=== PATIENT | female | born 1940 | race American Indian/Alaskan Native ===

== ENCOUNTER 2017-08-21 02:52 | Inpatient (IN) | payer MEDICAID, MEDICARE ==
[2017-08-21] MEDS ORDERED: NACL 0.9% 500 ML 500 ML IV ONE (03:13)
[2017-08-21] MEDS ORDERED: NACL 0.9% 1000 ML 1,000 ML ONE (03:15)
[2017-08-21 03:33] LABS: Hematocrit 25.4 % (30.3-42.9); Hemoglobin 8.4 gm/dl (10.1-14.3); Mean Corpuscular HGB Conc 33 % (30-34); Mean Corpuscular Volume 77 fl (79-97); Platelet Count 692 K/mm3 (140-440); Red Blood Count 3.29 M/mm3 (3.65-5.03); Red Cell Distribution Width 14.1 % (13.2-15.2)
[2017-08-21] MEDS ORDERED: TYLENOL PO ONE (03:33)
[2017-08-21] MEDS ORDERED: ZOFRAN IV ONE (03:35)
[2017-08-21] MEDS ORDERED: NACL 0.9% 1000 ML IV ONE ×2 (03:36→03:37)
[2017-08-21] MEDS ORDERED: ZOSYN/NS 4.5GM/100ML 4.5 GM/100 ML VIAL IV ONE (03:39)
[2017-08-21] MEDS ORDERED: TYLENOL PR ONE (03:40)
--- NOTE | 2017-08-21 03:40 | XRay Report ---
FINAL REPORT EXAM: XR CHEST 1V AP HISTORY: possible Sepsis COMPARISON: None available. FINDINGS: Frontal view(s) of the chest obtained. Mild to moderate cardiac enlargement. No pneumothorax. Faint patchy opacity left lung base which could reflect atelectasis or small focus developing pneumonia. Right lung is grossly clear. IMPRESSION: Patchy opacity left lung base which could reflect small focus of atelectasis or developing pneumonia. Mild to moderate cardiac enlargement.
[2017-08-21] MEDS ORDERED: LEVAQUIN 500MG/100ML 500 MG/100 ML BAG IV ONE ×2 (03:42→09:09)
[2017-08-21 03:47] LABS: Alanine Aminotransferase 5 units/L (7-56); Albumin 2.3 g/dL (3.9-5); BUN/Creatinine Ratio 40; Blood Urea Nitrogen 12 mg/dL (7-17); Calcium 7.4 mg/dL (8.4-10.2); Hemolysis Index 0
--- NOTE | 2017-08-21 03:47 | Emergency Department Report ---
HPI - General Chief Complaint: Altered Mental Status Time Seen by Provider: 08/21/17 03:41 - HPI HPI: The patient is a 77-year-old female with a history of CVA, dementia, thyroid disease, and who presents for evaluation of altered mental status and dyspnea. Per long-term staff, the patient has exhibited change in behavior for the past one day. The patient admits to mild constant dyspnea for the past day, exacerbated with coughing. The patient denies trauma to the head, headache, chest pain, hemoptysis, back pain, abdominal pain, vomiting. ED Past Medical Hx - Past Medical History Previous Medical History?: Yes Hx Hypertension: Yes Hx Psychiatric Treatment: Yes (schizophrenia) Hx Dementia: Yes Additional medical history: chronic ulcer left heel, midfoot,sacral wound - Social History Smoking Status: Former Smoker Substance Use Type: None ED Review of Systems ROS: Stated complaint: WOUNDS Other details as noted in HPI Constitutional: denies: fever ENT: denies: throat or neck pain Respiratory: reports cough, shortness of breath Cardiovascular: denies: chest pain Endocrine: denies unexplained weight loss or gain Gastrointestinal: denies: abdominal pain, nausea Genitourinary: denies: dysuria Musculoskeletal: denies: leg swelling Skin: denies: rash Neurological: AMS (per living facility staff) denies: headache Hematological/Lymphatic: denies: easy bleeding or easy bruising Psych: denies sadness or hopelessness Physical Exam - Physical Exam Vital Signs: Vital Signs 08/21/17 02:56 Temperature 102.1 F H Pulse Rate 142 H Respiratory 24 Rate Blood Pressure 91/55 [Left] O2 Sat by Pulse 91 Oximetry Physical Exam: General: well-nourished, well-developed, no acute distress Head: Normocephalic, atraumatic Eyes: normal sclera ENT: Mucous membranes are pale and dry Neck: No neck stiffness, no cervical adenopathy Respiratory: Mildly diminished left basilar breath sound and rhonchi present Cardio: S1 and S2 present, no murmurs, rubs, gallops, capillary refill is delayed Abdomen: Normoactive bowel sounds, soft abdomen, no rigidity, no guarding or rebound tenderness Chest WALL/Back: No tenderness to palpation of the chest wall, no CVA tenderness with percussion Musc: No pitting edema Skin: No rash Neuro: no facial drooping, normal speech Psych: Normal affect ED Course Vital Signs 08/21/17 02:56 Temperature 102.1 F H Pulse Rate 142 H Respiratory 24 Rate Blood Pressure 91/55 [Left] O2 Sat by Pulse 91 Oximetry ED Medical Decision Making - Lab Data Result diagrams: 08/21/17 03:17 08/21/17 03:17 - Medical Decision Making The patient was seen and examined by myself. The patient is placed on a gardening manager and continuous pulse ox. On initial evaluation, the patient was found to be in no distress, although with severely elevated heart rate, elevated temperature, and low blood pressure. The patient is given 30 cc/kg normal saline fluid bolus for treatment of her dehydration and suspected sepsis , she is given Tylenol for fever, antibiotics order for treatment of her sepsis as well. Evaluation orders were placed. Multiple bedside reassessments performed to assess the patient's responsiveness to fluids resuscitation. X-ray of the chest reveals a left lower lobe infiltrate concerning for pneumonia. Lab results revealed leukocytosis, WBC 16. Dr. Arreaga, the physician on-call for the hospitalist service was contacted. He agreed to admit the patient for further treatment and close monitoring. The ED admit order was placed. The patient was admitted in guarded condition. Critical Care Time: Yes Critical care time in (mins) excluding proc time.: 35 Critical care attestation.: Due to the critical nature of this patients presentation, which necessitated multiple bedside assessments, manipulation and supportive measures to prevent further life threatening deterioration, I would like to bill for a total of 35 minutes of critical care time. This was exclusive of any separately billable procedures. Critical Care Time: 35 minutes ED Disposition Clinical Impression: Dehydration, Generalized weakness Sepsis Qualifiers: Sepsis type: sepsis due to unspecified organism Qualified Code(s): A41.9 - Sepsis, unspecified organism Pneumonia, community acquired Qualifiers: Laterality: left Lung location: lower lobe of lung Qualified Code(s): J18.1 - Lobar pneumonia, unspecified organism Disposition: OP ADMIT IP TO THIS HOSP Is pt being admited?: Yes Does the pt Need Aspirin: Yes Condition: Critical Instructions: Bacterial Pneumonia (ED) Referrals: PRIMARY CARE, [Primary Care Provider] - 3-5 Days Time of Disposition: 03:45
[2017-08-21] MEDS ORDERED: BABY ASPIRIN PO ONE (03:50)
[2017-08-21 03:53] LABS: INR 1.38 (0.87-1.13)
[2017-08-21 03:53] LABS: Mean Corpuscular Hemoglobin 26 pg (28-32)
[2017-08-21] MEDS ORDERED: VANCOMYCIN PHARMACY TO DOSE IV SCH (04:00)
[2017-08-21] MEDS ORDERED: VANCOMYCIN/NS 1 GM/250 ML 1 GM/250 ML BAG IV SCH (04:00)
[2017-08-21 04:27] LABS: Band Neutrophils # (Manual) 0.2 K/mm3; Basophils % (Manual) 0 % (0.0-1.8); Eosinophils % (Manual) 0 % (0.0-4.3); Total Cells Counted 100
[2017-08-21 04:28] LABS: Giant Platelets Rare; Hypochromasia 1+; Platelet Estimate Appears Increased
[2017-08-21 07:25] LABS: Bacteria,Urine 4+ /HPF (Negative); Bilirubin,Urine NEG (Negative); Blood,Urine NEG (Negative); Color,Urine Amber (Yellow); Mucus,Urine 3+ /HPF
[2017-08-21] MEDS ORDERED: ZOFRAN IV PRN (09:53)
[2017-08-21] MEDS ORDERED: SODIUM CHLORIDE FLUSH SYRINGE 10 ML IV PRN (09:53)
--- NOTE | 2017-08-21 09:53 | History and Physical Report ---
History of Present Illness Date of examination: 08/21/17 Date of admission: 08/21/17 Chief complaint: CC AMS 2 days History of present illness: PO[place]: The patient is a 77-year-old female with a history of CVA, dementia, thyroid disease, and who presents for evaluation of altered mental status and dyspnea. Per group home staff, the patient has exhibited change in behavior for the past one day. The patient admits to mild constant dyspnea for the past day, exacerbated with coughing. The patient denies trauma to the head, headache, chest pain, hemoptysis, back pain, abdominal pain, vomiting. Past Medical History Previous Medical History?: Yes Hx Hypertension: Yes Hx Psychiatric Treatment: Yes (schizophrenia) Hx Dementia: Yes Additional medical history: chronic ulcer left heel, midfoot,sacral wound Social History Smoking Status: Former Smoker Substance Use Type: None Surgery History N/A Family History Htn Review of Systems ROS: Stated complaint: WOUNDS Other details as noted in HPI Constitutional: denies: fever ENT: denies: throat or neck pain Respiratory: reports cough, shortness of breath Cardiovascular: denies: chest pain Endocrine: denies unexplained weight loss or gain Gastrointestinal: denies: abdominal pain, nausea Genitourinary: denies: dysuria Musculoskeletal: denies: leg swelling Skin: denies: rash Decub ulcer Sacrum and Left heel Neurological: AMS (per living facility staff) denies: headache Hematological/Lymphatic: denies: easy bleeding or easy bruising Psych: denies sadness or hopelessness Medications and Allergies Allergies Allergy/AdvReac Type Severity Reaction Status Date / Time No Known Allergies Allergy Verified 08/21/17 03:19 Home Medications Medication Instructions Recorded Confirmed Last Taken Type Collagenase [Santyl] 1 applicatio TP QDAY 08/21/17 08/21/17 Unknown History Donepezil [Aricept] 5 mg PO QDAY 08/21/17 08/21/17 Unknown History Lisinopril [Zestril] 5 mg PO QDAY 08/21/17 08/21/17 Unknown History Valproic Acid [DepaKENE] 750 mg PO QHS 08/21/17 08/21/17 Unknown History metroNIDAZOLE [Flagyl] 500 mg TP DAILY 08/21/17 08/21/17 Unknown History risperiDONE [Risperdal] 4 mg PO DAILY 08/21/17 08/21/17 Unknown History traZODone [Desyrel] 50 mg PO QHS 08/21/17 08/21/17 Unknown History Active Meds: Active Medications Vancomycin HCl (Vancomycin Pharmacy To Dose) 1 each IV PKCONSULT RACHEL Exam - Constitutional Vitals: Temp Pulse Resp BP Pulse Ox 102.1 F H 110 H 16 112/52 98 08/21/17 02:56 08/21/17 08:45 08/21/17 08:45 08/21/17 08:45 08/21/17 08:45 General appearance: Present: no acute distress, well-nourished - EENT Eyes: Present: PERRL ENT: hearing intact, clear oral mucosa - Neck Neck: Present: supple, normal ROM - Respiratory Respiratory effort: normal Respiratory: bilateral: CTA - Cardiovascular Heart rate: 70 Rhythm: regular Heart Sounds: Present: S1 & S2. Absent: rub, click - Extremities Extremities: no ischemia, pulses intact, pulses symmetrical, No edema, abnormal (L HEEL Ulcer) Extremity abnormal: other (Sacral Decubitus ulcerStg 4 10 cmx 5xcm x 0.5cm depth ) Peripheral Pulses: within normal limits - Abdominal General gastrointestinal: Present: soft, non-tender, non-distended, normal bowel sounds Female genitourinary: Present: normal - Integumentary Integumentary: Present: clear, warm, dry - Musculoskeletal Musculoskeletal: gait normal, strength equal bilaterally - Psychiatric Psychiatric: appropriate mood/affect, intact judgment & insight - Neurologic Neurologic: CNII-XII intact, moves all extremities - Allied Health Allied health notes reviewed: nursing, case management Results - Labs CBC & Chem 7: 08/22/17 10:04 08/22/17 10:04 Labs: Laboratory Last Values WBC 16.2 K/mm3 (4.5-11.0) H 08/21/17 03:17 RBC 3.29 M/mm3 (3.65-5.03) L 08/21/17 03:17 Hgb 8.4 gm/dl (10.1-14.3) L 08/21/17 03:17 Hct 25.4 % (30.3-42.9) L 08/21/17 03:17 MCV 77 fl (79-97) L 08/21/17 03:17 MCH 26 pg (28-32) L 08/21/17 03:17 MCHC 33 % (30-34) 08/21/17 03:17 RDW 14.1 % (13.2-15.2) 08/21/17 03:17 Plt Count 692 K/mm3 (140-440) H 08/21/17 03:17 Add Manual Diff Complete 08/21/17 03:17 Total Counted 100 08/21/17 03:17 Seg Neutrophils % Stamp Press Operator 08/21/17 03:17 Seg Neuts % (Manual) 96.0 % (40.0-70.0) H 08/21/17 03:17 Band Neutrophils % 1.0 % 08/21/17 03:17 Lymphocytes % (Manual) 2.0 % (13.4-35.0) L 08/21/17 03:17 Reactive Lymphs % (Man) 0 % 08/21/17 03:17 Monocytes % (Manual) 1.0 % (0.0-7.3) 08/21/17 03:17 Eosinophils % (Manual) 0 % (0.0-4.3) 08/21/17 03:17 Basophils % (Manual) 0 % (0.0-1.8) 08/21/17 03:17 Metamyelocytes % 0 % 08/21/17 03:17 Myelocytes % 0 % 08/21/17 03:17 Promyelocytes % 0 % 08/21/17 03:17 Blast Cells % 0 % 08/21/17 03:17 Nucleated RBC % Not Reportable 08/21/17 03:17 Seg Neutrophils # Man 15.6 K/mm3 (1.8-7.7) H 08/21/17 03:17 Band Neutrophils # 0.2 K/mm3 08/21/17 03:17 Lymphocytes # (Manual) 0.3 K/mm3 (1.2-5.4) L 08/21/17 03:17 Abs React Lymphs (Man) 0.0 K/mm3 08/21/17 03:17 Monocytes # (Manual) 0.2 K/mm3 (0.0-0.8) 08/21/17 03:17 Eosinophils # (Manual) 0.0 K/mm3 (0.0-0.4) 08/21/17 03:17 Basophils # (Manual) 0.0 K/mm3 (0.0-0.1) 08/21/17 03:17 Metamyelocytes # 0.0 K/mm3 08/21/17 03:17 Myelocytes # 0.0 K/mm3 08/21/17 03:17 Promyelocytes # 0.0 K/mm3 08/21/17 03:17 Blast Cells # 0.0 K/mm3 08/21/17 03:17 WBC Morphology Not Reportable 08/21/17 03:17 Hypersegmented Neuts Not Reportable 08/21/17 03:17 Hyposegmented Neuts Not Reportable 08/21/17 03:17 Hypogranular Neuts Not Reportable 08/21/17 03:17 Smudge Cells Not Reportable 08/21/17 03:17 Toxic Granulation Not Reportable 08/21/17 03:17 Toxic Vacuolation Not Reportable 08/21/17 03:17 Dohle Bodies Not Reportable 08/21/17 03:17 Pelger-Huet Anomaly Not Reportable 08/21/17 03:17 Abdulkadir Rods Not Reportable 08/21/17 03:17 Platelet Estimate Appears increased 08/21/17 03:17 Clumped Platelets Not Reportable 08/21/17 03:17 Plt Clumps, EDTA Not Reportable 08/21/17 03:17 Large Platelets Not Reportable 08/21/17 03:17 Giant Platelets Rare 08/21/17 03:17 Platelet Satelliting Not Reportable 08/21/17 03:17 Plt Morphology Comment Not Reportable 08/21/17 03:17 RBC Morphology Not Reportable 08/21/17 03:17 Dimorphic RBCs Not Reportable 08/21/17 03:17 Polychromasia Not Reportable 08/21/17 03:17 Hypochromasia 1+ 08/21/17 03:17 Poikilocytosis Not Reportable 08/21/17 03:17 Anisocytosis Not Reportable 08/21/17 03:17 Microcytosis Not Reportable 08/21/17 03:17 Macrocytosis Not Reportable 08/21/17 03:17 Spherocytes Not Reportable 08/21/17 03:17 Pappenheimer Bodies Not Reportable 08/21/17 03:17 Sickle Cells Not Reportable 08/21/17 03:17 Target Cells Not Reportable 08/21/17 03:17 Tear Drop Cells Not Reportable 08/21/17 03:17 Ovalocytes Not Reportable 08/21/17 03:17 Helmet Cells Not Reportable 08/21/17 03:17 Ordonez-[place] Bodies Not Reportable 08/21/17 03:17 [place] Rings Not Reportable 08/21/17 03:17 Sumner Cells Not Reportable 08/21/17 03:17 Bite Cells Not Reportable 08/21/17 03:17 Crenated Cell Not Reportable 08/21/17 03:17 Elliptocytes Not Reportable 08/21/17 03:17 Acanthocytes (Spur) Not Reportable 08/21/17 03:17 Rouleaux Not Reportable 08/21/17 03:17 Hemoglobin C Crystals Not Reportable 08/21/17 03:17 Schistocytes Not Reportable 08/21/17 03:17 Malaria parasites Not Reportable 08/21/17 03:17 Dewayne Bodies Not Reportable 08/21/17 03:17 Hem Pathologist Commnt No 08/21/17 03:17 PT 17.8 Sec. (12.2-14.9) H 08/21/17 03:32 INR 1.38 (0.87-1.13) H 08/21/17 03:32 VBG pH 7.480 (7.320-7.420) H 08/21/17 03:17 Sodium 137 mmol/L (137-145) 08/21/17 03:17 Potassium 3.5 mmol/L (3.6-5.0) L 08/21/17 03:17 Chloride 95.0 mmol/L (98-107) L 08/21/17 03:17 Carbon Dioxide 27 mmol/L (22-30) 08/21/17 03:17 Anion Gap 19 mmol/L 08/21/17 03:17 BUN 12 mg/dL (7-17) 08/21/17 03:17 Creatinine 0.3 mg/dL (0.7-1.2) L 08/21/17 03:17 Estimated GFR > 60 ml/min 08/21/17 03:17 BUN/Creatinine Ratio 40 % 08/21/17 03:17 Lactic Acid 1.30 mmol/L (0.7-2.0) 08/21/17 06:49 Calcium 7.4 mg/dL (8.4-10.2) L 08/21/17 03:17 Total Bilirubin 0.40 mg/dL (0.1-1.2) 08/21/17 03:17 AST 9 units/L (5-40) 08/21/17 03:17 ALT 5 units/L (7-56) L 08/21/17 03:17 Alkaline Phosphatase 90 units/L (35-129) 08/21/17 03:17 NT-Pro-B Natriuret Pep 165.7 pg/mL (0-900) 08/21/17 03:17 Total Protein 5.2 g/dL (6.3-8.2) L 08/21/17 03:17 Albumin 2.3 g/dL (3.9-5) L 08/21/17 03:17 Albumin/Globulin Ratio 0.8 % 08/21/17 03:17 Urine Color Beth (Yellow) 08/21/17 06:54 Urine Turbidity Clear (Clear) 08/21/17 06:54 Urine pH 5.0 (5.0-7.0) 08/21/17 06:54 Ur Specific Ransom 1.021 (1.003-1.030) 08/21/17 06:54 Urine Protein 100 mg/dl mg/dL (Negative) 08/21/17 06:54 Urine Glucose (UA) Neg mg/dL (Negative) 08/21/17 06:54 Urine Ketones Neg mg/dL (Negative) 08/21/17 06:54 Urine Blood Neg (Negative) 08/21/17 06:54 Urine Nitrite Neg (Negative) 08/21/17 06:54 Urine Bilirubin Neg (Negative) 08/21/17 06:54 Urine Urobilinogen 4.0 mg/dL (<2.0) 08/21/17 06:54 Ur Leukocyte Esterase Neg (Negative) 08/21/17 06:54 Urine WBC (Auto) 9.0 /HPF (0.0-6.0) H 08/21/17 06:54 Urine RBC (Auto) 4.0 /HPF (0.0-6.0) 08/21/17 06:54 U Epithel Cells (Auto) 11.0 /HPF (0-13.0) 08/21/17 06:54 Urine Bacteria (Auto) 4+ /HPF (Negative) 08/21/17 06:54 Urine WBC Clumps 2+ /HPF 08/21/17 06:54 Urine Mucus 3+ /HPF 08/21/17 06:54 Short CBC 08/22/17 Range/Units 10:04 WBC 18.4 H (4.5-11.0) K/mm3 Hgb 7.4 L (10.1-14.3) gm/dl Hct 24.1 L (30.3-42.9) % Plt Count 638 H (140-440) K/mm3 [facility] 08/22/17 10:04 Sodium 139 Potassium 3.1 L Chloride 102.6 Carbon Dioxide 25 BUN 7 Creatinine 0.3 L Glucose 99 Calcium 7.4 L - Imaging and Cardiology Imaging and Cardiology: Rt Shoulder X ray Rotator cuff pathology Possible impingement syndrome Assessment and Plan Advance Directives: Yes (Full code) VTE prophylaxis?: Chemical Plan of care discussed with patient/family: Yes - Patient Problems (1) Sepsis Current Visit: Yes Status: Acute Qualifiers: Sepsis type: sepsis due to unspecified organism Qualified Code(s): A41.9 - Sepsis, unspecified organism Plan to address problem: Patient septic with high white count and Altered sensorium Sec to Sacral decubitus and UTI IV Zosyn initiated IV vanco initiated Surgery consult requested for debridement (2) Encephalopathy acute Current Visit: Yes Status: Acute Plan to address problem: Sec to sepsis IV abx and IV fluids (3) UTI (urinary tract infection) Current Visit: Yes Status: Acute Qualifiers: Urinary tract infection type: acute cystitis (4) Severe protein-calorie malnutrition Current Visit: Yes Status: Acute Plan to address problem: Dietitian consult (5) Unstageable pressure ulcer of sacral region Current Visit: Yes Status: Acute Plan to address problem: Wound care Debridement and IV Abx (6) Dehydration Current Visit: Yes Status: Acute Plan to address problem: IV Fluids initiated (7) HTN (hypertension) Current Visit: Yes Status: Chronic Qualifiers: Hypertension type: essential hypertension Qualified Code(s): I10 - Essential (primary) hypertension Plan to address problem: Cont antihypertensives (8) DVT prophylaxis Current Visit: Yes Status: Acute Plan to address problem: on Heparin
[2017-08-21] MEDS ORDERED: SODIUM BICARBONATE FEEDTUBE PRN ×3 (09:57→14:05)
[2017-08-21] MEDS ORDERED: SIMPLE SYRUP FEEDTUBE PRN ×6 (09:57→14:05)
[2017-08-21] MEDS ORDERED: PANCREAZE DR 10,500 UNIT FEEDTUBE PRN ×3 (09:57→14:05)
--- NOTE | 2017-08-21 15:31 | Consultation ---
History of Present Illness Consult date: 08/21/17 Reason for consult: other (Sacral and bilateral heel pressure ulcers) - History of present illness History of present illness: 77 yo female half-way resident with bilateral heel and sacral pressure ulcers. She is not eating per her sister. Past History Past Medical History: hypertension (Dementia) Medications and Allergies Allergies Allergy/AdvReac Type Severity Reaction Status Date / Time No Known Allergies Allergy Verified 08/21/17 03:19 Home Medications Medication Instructions Recorded Confirmed Last Taken Type Collagenase [Santyl] 1 applicatio TP QDAY 08/21/17 08/21/17 Unknown History Donepezil [Aricept] 5 mg PO QDAY 08/21/17 08/21/17 Unknown History Lisinopril [Zestril] 5 mg PO QDAY 08/21/17 08/21/17 Unknown History Valproic Acid [DepaKENE] 750 mg PO QHS 08/21/17 08/21/17 Unknown History metroNIDAZOLE [Flagyl] 500 mg TP DAILY 08/21/17 08/21/17 Unknown History risperiDONE [Risperdal] 4 mg PO DAILY 08/21/17 08/21/17 Unknown History traZODone [Desyrel] 50 mg PO QHS 08/21/17 08/21/17 Unknown History Active Meds: Active Medications Acetaminophen (Tylenol) 650 mg PO Q4H PRN PRN Reason: Pain MILD(1-3)/Fever >100.5/ALMEIDA Lipase/Protease/Amylase (Pancreaze Dr 10,500 Unit) 1 each FEEDTUBE PRN PRN PRN Reason: For Clogged Feeding Tube Heparin Sodium (Porcine) (Heparin) 5,000 unit SUB-Q Q12HR RACHEL Sodium Chloride (Nacl 0.9% 1000 Ml) 1,000 mls @ 100 mls/hr IV DIRECT RACHEL Piperacillin Sod/Tazobactam Sod (Zosyn/Ns 4.5gm/100ml) 4.5 gm in 100 mls @ 200 mls/hr IV Q8HR RACHEL; Protocol Morphine Sulfate (Morphine) 2 mg IV Q4H PRN PRN Reason: Pain, Moderate (4-6) Ondansetron HCl (Zofran) 4 mg IV Q8H PRN PRN Reason: Nausea And Vomiting Simple Syrup (Simple Syrup) 15 ml FEEDTUBE PRN PRN PRN Reason: Hypoglycemia Simple Syrup (Simple Syrup) 30 ml FEEDTUBE PRN PRN PRN Reason: Hypoglycemia Sodium Bicarbonate (Sodium Bicarbonate) 325 mg FEEDTUBE PRN PRN PRN Reason: For Clogged Feeding Tube Sodium Chloride (Sodium Chloride Flush Syringe 10 Ml) 10 ml IV BID RACHEL Sodium Chloride (Sodium Chloride Flush Syringe 10 Ml) 10 ml IV PRN PRN PRN Reason: LINE FLUSH Sodium Hypochlorite (Dakin's Full Strength) 1 applic TP Q12H RACHEL Review of Systems All systems: negative (none) Exam Vital Signs Temp Pulse Resp BP Pulse Ox 102.1 F H 142 H 24 91/55 91 08/21/17 02:56 08/21/17 02:56 08/21/17 02:56 08/21/17 02:56 08/21/17 02:56 - General physical appearance Positive: no pain (cachetic), chronically ill - Eyes Positive: PERRL, normal occular movement - ENT Positive: normal pinna, normal nares, normal mucosa, no hearing loss, no congestion - Neck Positive: other (Right neck mass present) - Respiratory Positive: normal expansion, normal respiratory effort, clear to auscultation - Cardiovascular Rhythm: regular Heart Sounds: Present: S1 & S2. Absent: rub, click - Extremities Extremity abnormal: ulceration (I cannot palpate the DP or PT pulses bilaterally. There is a 4.5 X 7 X 0.1 unstageable eschar of the right heel and a 13 X 11 X 0.1 unstageable eschar of the left heel. There is a 7 X 9 X 1.8 stage 3-4 decubitus ulceration of the sacrum with a 5 cm margin of undermining. ), pulses diminished Peripheral Pulses: abnormal - Breasts Breasts: deferred - Abdomen Abdomen: Present: soft, bowel sounds normal. Absent: tender, distended Hernia: none - Genitourinary Female Genitourinary: deferred - Integumentary other (See extremities.) - Neurologic Neurologic: other (Unresponsive) Results - Labs 08/21/17 03:17 08/21/17 03:17 Abnormal lab results 08/21/17 08/21/17 08/21/17 Range/Units 03:17 03:17 03:17 WBC 16.2 H (4.5-11.0) K/mm3 RBC 3.29 L (3.65-5.03) M/mm3 Hgb 8.4 L (10.1-14.3) gm/dl Hct 25.4 L (30.3-42.9) % MCV 77 L (79-97) fl MCH 26 L (28-32) pg Plt Count 692 H (140-440) K/mm3 Seg Neuts % (Manual) 96.0 H (40.0-70.0) % Lymphocytes % (Manual) 2.0 L (13.4-35.0) % Seg Neutrophils # Man 15.6 H (1.8-7.7) K/mm3 Lymphocytes # (Manual) 0.3 L (1.2-5.4) K/mm3 PT (12.2-14.9) Sec. INR (0.87-1.13) VBG pH 7.480 H (7.320-7.420) Potassium 3.5 L (3.6-5.0) mmol/L Chloride 95.0 L (98-107) mmol/L Creatinine 0.3 L (0.7-1.2) mg/dL Glucose 218 H (65-100) mg/dL Calcium 7.4 L (8.4-10.2) mg/dL ALT 5 L (7-56) units/L Total Protein 5.2 L (6.3-8.2) g/dL Albumin 2.3 L (3.9-5) g/dL Urine WBC (Auto) (0.0-6.0) /HPF 08/21/17 08/21/17 Range/Units 03:32 06:54 WBC (4.5-11.0) K/mm3 RBC (3.65-5.03) M/mm3 Hgb (10.1-14.3) gm/dl Hct (30.3-42.9) % MCV (79-97) fl MCH (28-32) pg Plt Count (140-440) K/mm3 Seg Neuts % (Manual) (40.0-70.0) % Lymphocytes % (Manual) (13.4-35.0) % Seg Neutrophils # Man (1.8-7.7) K/mm3 Lymphocytes # (Manual) (1.2-5.4) K/mm3 PT 17.8 H (12.2-14.9) Sec. INR 1.38 H (0.87-1.13) VBG pH (7.320-7.420) Potassium (3.6-5.0) mmol/L Chloride (98-107) mmol/L Creatinine (0.7-1.2) mg/dL Glucose (65-100) mg/dL Calcium (8.4-10.2) mg/dL ALT (7-56) units/L Total Protein (6.3-8.2) g/dL Albumin (3.9-5) g/dL Urine WBC (Auto) 9.0 H (0.0-6.0) /HPF Diabetes panel 08/21/17 08/21/17 Range/Units 03:17 03:17 Sodium 137 (137-145) mmol/L Potassium 3.5 L (3.6-5.0) mmol/L Chloride 95.0 L (98-107) mmol/L Carbon Dioxide 27 (22-30) mmol/L BUN 12 (7-17) mg/dL Creatinine 0.3 L (0.7-1.2) mg/dL Glucose 218 H (65-100) mg/dL Hemoglobin A1c 5.8 (4-6) % Calcium 7.4 L (8.4-10.2) mg/dL AST 9 (5-40) units/L ALT 5 L (7-56) units/L Alkaline Phosphatase 90 (35-129) units/L Total Protein 5.2 L (6.3-8.2) g/dL Albumin 2.3 L (3.9-5) g/dL Calcium panel 08/21/17 08/21/17 Range/Units 03:17 03:17 Calcium 7.4 L (8.4-10.2) mg/dL Phosphorus 2.70 (2.5-4.5) mg/dL Albumin 2.3 L (3.9-5) g/dL Pituitary panel 08/21/17 Range/Units 03:17 Sodium 137 (137-145) mmol/L Potassium 3.5 L (3.6-5.0) mmol/L Chloride 95.0 L (98-107) mmol/L Carbon Dioxide 27 (22-30) mmol/L BUN 12 (7-17) mg/dL Creatinine 0.3 L (0.7-1.2) mg/dL Glucose 218 H (65-100) mg/dL Calcium 7.4 L (8.4-10.2) mg/dL Adrenal panel 08/21/17 Range/Units 03:17 Sodium 137 (137-145) mmol/L Potassium 3.5 L (3.6-5.0) mmol/L Chloride 95.0 L (98-107) mmol/L Carbon Dioxide 27 (22-30) mmol/L BUN 12 (7-17) mg/dL Creatinine 0.3 L (0.7-1.2) mg/dL Glucose 218 H (65-100) mg/dL Calcium 7.4 L (8.4-10.2) mg/dL Total Bilirubin 0.40 (0.1-1.2) mg/dL AST 9 (5-40) units/L ALT 5 L (7-56) units/L Alkaline Phosphatase 90 (35-129) units/L Total Protein 5.2 L (6.3-8.2) g/dL Albumin 2.3 L (3.9-5) g/dL Assessment and Plan - Patient Problems (1) Decubitus ulcer of heel, bilateral, unstageable Current Visit: Yes Status: Acute Plan to address problem: 1) I will discuss debridement with her daughter who is flying in from [place]. 2) Pressure avoidance 3) Local wound care 4) BLE arterial dopplers (2) Unstageable pressure ulcer of sacral region Current Visit: Yes Status: Acute Plan to address problem: 1) Pressure avoidance 2) I will discuss debridement with her daughter. (3) Severe protein-calorie malnutrition Current Visit: Yes Status: Acute Plan to address problem: 1) I will discuss PEG placement with her daughter. (4) UTI (urinary tract infection) Current Visit: Yes Status: Acute
[2017-08-21] MEDS: HEPARIN SUB-Q SCH ×2 (17:45→22:11)
[2017-08-21] MEDS: ZOSYN/NS 4.5GM/100ML 4.5 GM/100 ML VIAL IV SCH ×2 (17:46→22:09)
[2017-08-21] MEDS: SODIUM CHLORIDE FLUSH SYRINGE 10 ML IV SCH ×2 (17:54→22:11)
--- NOTE | 2017-08-21 21:05 | XRay Report ---
FINAL REPORT EXAM: XR SHOULDER 2+V RT HISTORY: Pt c/o pain to right shoulder/arm TECHNIQUE: Right shoulder three views PRIORS: None. FINDINGS: There is superior migration the humerus at the glenohumeral joint space. There is degenerative narrowing at the AC joint with inferior distal acromial osteophyte. No acute fractures are identified. No dislocation seen. Adjacent bony and soft tissue structures are unremarkable. IMPRESSION: Findings suggestive of underlying rotator cuff pathology. Inferior acromial osteophyte may contribute to clinical impingement syndrome.
[2017-08-21] MEDS: DAKIN'S FULL STRENGTH TP SCH (22:09)
[2017-08-21] MEDS: NACL 0.9% 1000 ML 1,000 ML IV SCH (22:13)
[2017-08-22] MEDS: MORPHINE IV PRN ×3 (00:22→22:04)
[2017-08-22] MEDS: ZOSYN/NS 4.5GM/100ML 4.5 GM/100 ML VIAL IV SCH ×3 (05:12→22:05)
[2017-08-22] MEDS ORDERED: MARCAINE 0.25% INFILTRATI ONE (06:46)
[2017-08-22] MEDS ORDERED: HYDROGEN PEROXIDE ONE (06:46)
[2017-08-22] MEDS ORDERED: DIPRIVAN 10 MG/ML IV ONE (07:28)
[2017-08-22] MEDS ORDERED: SUBLIMAZE ONE (07:32)
[2017-08-22] MEDS ORDERED: SUBLIMAZE IV PRN (07:38)
--- NOTE | 2017-08-22 07:38 | Anesthesia Day of Surgery ---
Anesthesia Day of Surgery - Day of Surgery Patient Examined: Yes Patient H&P Reviewed: Yes Patient is NPO: Yes
--- NOTE | 2017-08-22 07:38 | Anesthesia Consultation ---
Anesthesia Consult and Med Hx Date of service: 08/22/17 - Airway Anesthetic Teeth Evaluation: Poor ROM Head & Neck: Adequate Mental/Hyoid Distance: Adequate Mallampati Class: Class III Intubation Access Assessment: Probably Good - Pulmonary Exam CTA: Yes - Cardiac Exam Cardiac Exam: RRR - Pre-Operative Health Status ASA Pre-Surgery Classification: ASA4 Proposed Anesthetic Plan: General - Cardiovascular System Hx Hypertension: Yes - Central Nervous System CVA: Yes Hx Psychiatric Problems: Yes (schizophrenia, dementia) - Endocrine Hx Thyroid Disease: Yes - Hematic Hx Anemia: Yes - Additional Comments Anesthesia Medical History Comments: [facility] resident, bed bound
[2017-08-22] MEDS ORDERED: XYLOCAINE MPF 2% ONE (08:12)
[2017-08-22] MEDS ORDERED: NEO SYNEPHRINE/NS Syringe(OR USE) IV ONE (08:51)
[2017-08-22] MEDS ORDERED: ZOFRAN ONE (08:51)
--- NOTE | 2017-08-22 08:56 | Post Operative Note ---
Pre-op diagnosis: 1) Sacral pressure ulcer, unstageable 2) B heel pressure ulcers, unstageab Post-op diagnosis: same (All ulcers were stage 4) Procedure: 1) Debridement of sacral pressure ulcer including bone; final wound measurements - 9 X 6 X 2 cm 2) Debridement of bilateral heel pressure ulcers including muscle/fascia - final wound measurements - left heel - 12 X 7 X 2 cm right heel - 6 X 6 X 2 cm Anesthesia: CHERYL Surgeon: STEWART FERRARO Estimated blood loss: minimal Pathology: list (Sacral wound cultures) Specimen disposition: to lab Condition: stable Disposition: PACU
[2017-08-22] MEDS ORDERED: NACL 0.9% IR ONE (09:05)
[2017-08-22 10:20] LABS: Hematocrit 24.1 % (30.3-42.9); Hemoglobin 7.4 gm/dl (10.1-14.3); Mean Corpuscular HGB Conc 31 % (30-34); Mean Corpuscular Volume 80 fl (79-97); Platelet Count 638 K/mm3 (140-440); Red Cell Distribution Width 14.3 % (13.2-15.2)
[2017-08-22 10:24] LABS: Mean Corpuscular Hemoglobin 25 pg (28-32)
[2017-08-22 10:27] LABS: BUN/Creatinine Ratio 23; Blood Urea Nitrogen 7 mg/dL (7-17); Calcium 7.4 mg/dL (8.4-10.2); Hemolysis Index 2
[2017-08-22 11:03] LABS: Anisocytosis 1+; Band Neutrophils # (Manual) 0.2 K/mm3; Basophils % (Manual) 0 % (0.0-1.8); Eosinophils % (Manual) 0 % (0.0-4.3); Hypochromasia 1+; Monocytes % (Manual) 0 % (0.0-7.3); Total Cells Counted 100
[2017-08-22 11:04] LABS: Helmet Cells Rare; Large Platelets Few; Ovalocytes 1+; Platelet Estimate Appears Increased; Target Cells 1+; Tear Drop Cells Rare
--- NOTE | 2017-08-22 12:54 | Procedure Note ---
Date of procedure: 08/22/17 Pre-op diagnosis: 1) Unstageable sacral pressure ulcer 2) Unstageable B heel pressure ulcers Post-op diagnosis: same (The sacral pressure ulcer was stage 4. The bilateral heel pressure ulcers were stage 4.) Procedure: 1) Debridement of necrotic skin, SQ, muscle and bone from stage 4 sacral pressure ulcer with final wound measurements being 9 X 6 X 2 cm 2) Debridement of necrotic skin, SQ and muscle from stage 4 left heel pressure ulcer with final wound measurements being 12 X 7 X 2 cm 3) Debridement of necrotic skin, SQ and muscle from stage 4 right heel pressure ulcer with final wound measurements being 6 X 6 X 2 Description of procedure: Pt was intubated on her bed. She was then re- positioned prone on the OR table. Her lower back and buttocks and her bilateral heels were prepped and draped. C&S of the sacral wound was obtained. Necrotic skin, SQ, muscle and part of the coccyx were surgically debrided from the sacrum using the Bovie and scissors. Hemostasis was obtained with the Bovie. The wound was then packed open with a dilute, Betadine moistened Kerlix followed by dry 4 X 4's, ABD's and tape. The left heel was then surgically debrided using a #10 blade. The necrotic tissue extended all the way down to the calcaneus with a substantial portion of the calcaneus exposed by the end of the debridement. Part of the left achilles tendon was also excised with the scalpel. Hemostasis was obtained with the Bovie. This wound was then packed open with a dilute, Betadine moistened Kerlix followed by dry 4 X 4's and a Kerlix wrap. The right heel was debrided and dressed in an identical fashion as the left heel. A significant portion of the right calcaneus was also exposed by the end of the debridement. Pt tolerated the procedure well. She was taken to PACU in stable condition. Anesthesia: GETA Surgeon: STEWART FERRARO Estimated blood loss: 50-100ml Pathology: none Specimen disposition: discarded Condition: stable Disposition: PACU
[2017-08-22] MEDS: HEPARIN SUB-Q SCH ×2 (13:22→22:04)
[2017-08-22] MEDS: SODIUM CHLORIDE FLUSH SYRINGE 10 ML IV SCH ×2 (13:23→22:03)
[2017-08-22] MEDS: DAKIN'S FULL STRENGTH TP SCH ×2 (13:23→22:02)
--- NOTE | 2017-08-22 14:46 | Post Anesthesia Evaluation ---
- Post Anesthesia Evaluation Patient Participated: Yes Airway Patent: Yes Stable Respiratory Function: Yes Nausea/Vomiting: No Temp > 96.8F: Yes Pain Manageable: Yes Adequeate Hydration: Yes Anesthesia Complications: No
[2017-08-22] MEDS ORDERED: NON-FORMULARY (Risperidone [Risperdal] 4 MG) PO SCH (15:45)
--- NOTE | 2017-08-22 15:52 | Progress Note ---
Assessment and Plan - Patient Problems (1) Sepsis Current Visit: Yes Status: Acute Qualifiers: Sepsis type: sepsis due to unspecified organism Qualified Code(s): A41.9 - Sepsis, unspecified organism Plan to address problem: Patient septic with high white count and Altered sensorium Sec to Sacral decubitus and UTI IV Zosyn initiated IV vanco initiated Surgery consult requested for debridement (2) Encephalopathy acute Current Visit: Yes Status: Acute Plan to address problem: Sec to sepsis IV abx and IV fluids (3) UTI (urinary tract infection) Current Visit: Yes Status: Acute Qualifiers: Urinary tract infection type: acute cystitis (4) Severe protein-calorie malnutrition Current Visit: Yes Status: Acute Plan to address problem: Dietitian consult (5) Unstageable pressure ulcer of sacral region Current Visit: Yes Status: Acute Plan to address problem: Wound care Debridement and IV Abx (6) Dehydration Current Visit: Yes Status: Acute Plan to address problem: IV Fluids initiated (7) HTN (hypertension) Current Visit: Yes Status: Chronic Qualifiers: Hypertension type: essential hypertension Qualified Code(s): I10 - Essential (primary) hypertension Plan to address problem: Cont antihypertensives (8) Hypokalemia Current Visit: Yes Status: Acute Plan to address problem: Supplemented (9) Anemia Current Visit: Yes Status: Acute Qualifiers: Anemia type: iron deficiency Plan to address problem: Transfuse one unit of PRBC if it drops below 7.0 of hemoglobin (10) DVT prophylaxis Current Visit: Yes Status: Acute Plan to address problem: on Heparin Subjective Date of service: 08/22/17 Principal diagnosis: Sepsis AMS and Sacral decubitus ulcer Interval history: More alert Objective - Constitutional Vitals: Vital Signs - 12hr 08/22/17 08/22/17 08/22/17 04:27 06:25 06:40 Temperature 99.4 F Pulse Rate 101 H 94 H 92 H Respiratory 22 16 12 Rate Blood Pressure 100/51 101/56 97/53 Blood Pressure [Left] O2 Sat by Pulse 94 99 100 Oximetry 08/22/17 08/22/17 08/22/17 06:55 07:20 07:30 Temperature 99.4 F Pulse Rate 96 H 91 H 90 Respiratory 19 12 15 Rate Blood Pressure 110/55 102/55 108/56 Blood Pressure [Left] O2 Sat by Pulse 100 100 100 Oximetry 08/22/17 08/22/17 08/22/17 07:35 09:04 09:10 Temperature 97.3 F L Pulse Rate 90 103 H 99 H Respiratory 15 16 15 Rate Blood Pressure 108/56 124/56 109/57 Blood Pressure [Left] O2 Sat by Pulse 100 98 96 Oximetry 08/22/17 08/22/17 08/22/17 09:15 09:20 09:35 Temperature Pulse Rate 98 H 98 H 94 H Respiratory 15 16 14 Rate Blood Pressure 115/62 129/64 127/65 Blood Pressure [Left] O2 Sat by Pulse 97 97 96 Oximetry 08/22/17 08/22/17 08/22/17 09:50 10:00 10:05 Temperature 97.3 F L Pulse Rate 94 H 93 H Respiratory 15 16 15 Rate Blood Pressure 123/62 121/59 Blood Pressure [Left] O2 Sat by Pulse 96 99 97 Oximetry 08/22/17 08/22/17 08/22/17 10:20 11:24 15:34 Temperature 97.3 F L 98.3 F 98.3 F Pulse Rate 96 H 94 H 93 H Respiratory 15 16 16 Rate Blood Pressure 118/60 114/53 Blood Pressure 101/54 [Left] O2 Sat by Pulse 96 100 97 Oximetry General appearance: Present: no acute distress, well-nourished - EENT Eyes: PERRL, EOM intact ENT: hearing intact, clear oral mucosa Ears: bilateral: normal - Neck Neck: supple, normal ROM - Respiratory Respiratory effort: normal Respiratory: bilateral: CTA - Breasts Breasts: normal - Cardiovascular Rhythm: regular Heart Sounds: Present: S1 & S2. Absent: gallop, rub Extremities: pulses intact, No edema, normal color, Full ROM Extremity abnormal: other (Sacral decubitus ulcer ) - Gastrointestinal General gastrointestinal: Present: soft, non-tender, non-distended, normal bowel sounds - Genitourinary Female genitourinary: normal - Integumentary Integumentary: clear, warm, dry - Musculoskeletal Musculoskeletal: 1, strength equal bilaterally - Neurologic Neurologic: moves all extremities - Psychiatric Psychiatric: memory intact, appropriate mood/affect, intact judgment & insight - Labs CBC & Chem 7: 08/22/17 10:04 08/22/17 10:04 Labs: Abnormal lab results 08/22/17 08/22/17 08/22/17 Range/Units 07:40 09:25 10:04 WBC 18.4 H (4.5-11.0) K/mm3 RBC 3.00 L (3.65-5.03) M/mm3 Hgb 7.4 L (10.1-14.3) gm/dl Hct 24.1 L (30.3-42.9) % MCH 25 L (28-32) pg Plt Count 638 H (140-440) K/mm3 Seg Neuts % (Manual) 96.0 H (40.0-70.0) % Lymphocytes % (Manual) 3.0 L (13.4-35.0) % Seg Neutrophils # Man 17.7 H (1.8-7.7) K/mm3 Lymphocytes # (Manual) 0.6 L (1.2-5.4) K/mm3 Potassium (3.6-5.0) mmol/L Creatinine (0.7-1.2) mg/dL POC Glucose 115 H 131 H (70-105) Calcium (8.4-10.2) mg/dL Iron (37-170) ug/dL Vitamin B12 (211-911) pg/mL Folate (7.3-26.0) ng/mL 08/22/17 08/22/17 08/22/17 Range/Units 10:04 14:30 14:30 WBC (4.5-11.0) K/mm3 RBC (3.65-5.03) M/mm3 Hgb (10.1-14.3) gm/dl Hct (30.3-42.9) % MCH (28-32) pg Plt Count (140-440) K/mm3 Seg Neuts % (Manual) (40.0-70.0) % Lymphocytes % (Manual) (13.4-35.0) % Seg Neutrophils # Man (1.8-7.7) K/mm3 Lymphocytes # (Manual) (1.2-5.4) K/mm3 Potassium 3.1 L (3.6-5.0) mmol/L Creatinine 0.3 L (0.7-1.2) mg/dL POC Glucose (70-105) Calcium 7.4 L (8.4-10.2) mg/dL Iron 11 L (37-170) ug/dL Vitamin B12 1647 H (211-911) pg/mL Folate (7.3-26.0) ng/mL 08/22/17 Range/Units 14:30 WBC (4.5-11.0) K/mm3 RBC (3.65-5.03) M/mm3 Hgb (10.1-14.3) gm/dl Hct (30.3-42.9) % MCH (28-32) pg Plt Count (140-440) K/mm3 Seg Neuts % (Manual) (40.0-70.0) % Lymphocytes % (Manual) (13.4-35.0) % Seg Neutrophils # Man (1.8-7.7) K/mm3 Lymphocytes # (Manual) (1.2-5.4) K/mm3 Potassium (3.6-5.0) mmol/L Creatinine (0.7-1.2) mg/dL POC Glucose (70-105) Calcium (8.4-10.2) mg/dL Iron (37-170) ug/dL Vitamin B12 (211-911) pg/mL Folate 7.04 L (7.3-26.0) ng/mL
[2017-08-22] MEDS ORDERED: VANCOMYCIN/NS 1 GM/250 ML 1 GM/250 ML BAG IV SCH (16:00)
[2017-08-22] MEDS ORDERED: VANCOMYCIN PHARMACY TO DOSE IV SCH (16:00)
[2017-08-22] MEDS: ARICEPT PO SCH (17:57)
[2017-08-22] MEDS: KCL 10MEQ/100ML 10 MEQ/100 ML BAG IV SCH ×4 (17:57→22:01)
[2017-08-22] MEDS: SANTYL TP SCH (17:58)
[2017-08-22] MEDS: ZESTRIL PO SCH (17:58)
[2017-08-22] MEDS: DESYREL PO SCH (23:04)
[2017-08-22] MEDS: RisperDAL PO SCH (23:05)
[2017-08-23] MEDS: NACL 0.9% 1000 ML 1,000 ML IV SCH ×3 (03:05→22:00)
[2017-08-23] MEDS: ZOSYN/NS 4.5GM/100ML 4.5 GM/100 ML VIAL IV SCH ×2 (05:23→14:56)
[2017-08-23] MEDS: HEPARIN SUB-Q SCH ×2 (10:52→21:55)
[2017-08-23] MEDS: MORPHINE IV PRN ×2 (10:53→21:53)
[2017-08-23] MEDS: SODIUM CHLORIDE FLUSH SYRINGE 10 ML IV SCH ×3 (10:54→21:55)
[2017-08-23] MEDS: ARICEPT PO SCH (10:55)
[2017-08-23] MEDS: ZESTRIL PO SCH (10:56)
[2017-08-23] MEDS: DAKIN'S FULL STRENGTH TP SCH ×2 (14:43→22:01)
[2017-08-23] MEDS ORDERED: WATER FOR IRRIG STERILE IR ONE (15:49)
[2017-08-23] MEDS ORDERED: ANCEF/STERILE WATER 2 GM/20 ML IV NR (16:00)
[2017-08-23] MEDS ORDERED: XYLOCAINE MPF 2% ONE (16:00)
[2017-08-23] MEDS ORDERED: ANCEF/STERILE WATER 2 GM/20 ML 2 GM/20 ML SYRINGE IV ONE (16:07)
[2017-08-23] MEDS ORDERED: NACL 0.9% 1000 ML 1,000 ML ONE (16:08)
[2017-08-23] MEDS ORDERED: DIPRIVAN 10 MG/ML IV ONE (16:15)
--- NOTE | 2017-08-23 16:15 | Procedure Note ---
Date of procedure: 08/23/17 Pre-op diagnosis: Severe protein calorie malnutrition Post-op diagnosis: same Procedure: EGD with PEG placement Description of procedure: Pt was placed supine on the GI lab stretcher. She was sedated by anesthesia. Bite block was placed. EGD was introduced into her oropharyna and the esophagus intubated under direct vision. The esophagus, stomach and first and second portions of the duodenum were examined and were found to be unremarkable. The stomach was maximally insufflated and an appropriate position for PEG placement selected. Skin and SQ tissue at this location were infiltrate with 4 ml of 1% Lidocaine. The introducer needle was passed directly into the stomach on the first pass. Guide wire was inserted into the stomach and the guide wire grasped with the snare. The guide wire and scope were removed via the pt's oropharynx. The PEG tubing was secured to the guide wire. External traction was applied to the guide wire until the internal bolster was snug up against the gastric and abdominal mcrae. The external bolster was placed and was felt to be appropriately snug at 2 cm. PEG tubing was cut and plugged. Repeat gastroscopy revealed the internal bolster to be in good position with no significant bleeding from the gastric puncture site. Pt tolerated the procedure well. She was taken back to her room in stable condition. Anesthesia: MAC Surgeon: STEWART FERRARO Estimated blood loss: minimal Pathology: none Condition: stable Disposition: floor
--- NOTE | 2017-08-23 16:20 | Anesthesia Day of Surgery ---
Anesthesia Day of Surgery - Day of Surgery Patient Examined: Yes Patient H&P Reviewed: Yes Patient is NPO: Yes
--- NOTE | 2017-08-23 16:55 | Progress Note ---
Assessment and Plan Assessment and plan: --Sacral decubitus ulcers; stage III Status post debridement, continue supportive care Wound care following --Bilateral heel decubiti; stage III -IV Status post debridement, continue wound and supportive care, antibiotics --Severe protein calorie malnutrition; Poor oral intake due to dysphagia --Dysphagia;Barium swallow today, if abnormal Possible PEG placement ,surgery following --Metabolic encephalopathy; multifactorial Secondary to sepsis, advanced age, dementia Supportive care --Sepsis; secondary to UTI present on admission Continue current antibiotics follow cultures --Sepsis secondary to multiple decubitus ulcers [different stages]; present on admission Status post debridement, Continue current antibiotic and wound care --Leukocytosis; secondary to sepsis, closely monitor --Hypokalemia; replace per protocol, monitor levels --Hypertension; moderate control, continue current antihypertensives and when necessary medications --Anemia; iron deficiency Closely monitor H&H and transfuse as needed, and supplements --DVT prophylaxis; Lovenox --Full CODE STATUS --DC planning; DC back to SNF when medically stable History Interval history: Patient seen and examined Reviewed Patient is scheduled for being swollen Nothing by mouth for the past Asking for food and water Vital signs reviewed Hospitalist Physical - Constitutional Vitals: Temp Pulse Resp BP Pulse Ox 98.1 F 75 16 106/61 100 08/23/17 13:06 08/23/17 13:06 08/23/17 13:06 08/23/17 13:06 08/23/17 13:06 General appearance: Present: no acute distress, cachectic, disheveled - EENT Eyes: Present: PERRL, EOM intact - Neck Neck: Present: supple, normal ROM - Respiratory Respiratory effort: normal Respiratory: bilateral: diminished, negative: rales, rhonchi, wheezing - Cardiovascular Rhythm: regular Heart Sounds: Present: S1 & S2 - Extremities Extremities: no ischemia, No edema - Abdominal General gastrointestinal: soft, non-tender, non-distended, normal bowel sounds - Integumentary Integumentary: Present: clear, warm - Psychiatric Psychiatric: other (confused) - Neurologic Neurologic: moves all extremities Results - Labs CBC & Chem 7: 08/22/17 10:04 08/22/17 10:04 Labs: Laboratory Last Values WBC 18.4 K/mm3 (4.5-11.0) H 08/22/17 10:04 RBC 3.00 M/mm3 (3.65-5.03) L 08/22/17 10:04 Hgb 7.4 gm/dl (10.1-14.3) L 08/22/17 10:04 Hct 24.1 % (30.3-42.9) L 08/22/17 10:04 MCV 80 fl (79-97) 08/22/17 10:04 MCH 25 pg (28-32) L 08/22/17 10:04 MCHC 31 % (30-34) 08/22/17 10:04 RDW 14.3 % (13.2-15.2) 08/22/17 10:04 Plt Count 638 K/mm3 (140-440) H 08/22/17 10:04 Add Manual Diff Complete 08/22/17 10:04 Total Counted 100 08/22/17 10:04 Seg Neutrophils % Fabrication Machine Operator 08/22/17 10:04 Seg Neuts % (Manual) 96.0 % (40.0-70.0) H 08/22/17 10:04 Band Neutrophils % 1.0 % 08/22/17 10:04 Lymphocytes % (Manual) 3.0 % (13.4-35.0) L 08/22/17 10:04 Reactive Lymphs % (Man) 0 % 08/22/17 10:04 Monocytes % (Manual) 0 % (0.0-7.3) 08/22/17 10:04 Eosinophils % (Manual) 0 % (0.0-4.3) 08/22/17 10:04 Basophils % (Manual) 0 % (0.0-1.8) 08/22/17 10:04 Metamyelocytes % 0 % 08/22/17 10:04 Myelocytes % 0 % 08/22/17 10:04 Promyelocytes % 0 % 08/22/17 10:04 Blast Cells % 0 % 08/22/17 10:04 Nucleated RBC % Not Reportable 08/22/17 10:04 Seg Neutrophils # Man 17.7 K/mm3 (1.8-7.7) H 08/22/17 10:04 Band Neutrophils # 0.2 K/mm3 08/22/17 10:04 Lymphocytes # (Manual) 0.6 K/mm3 (1.2-5.4) L 08/22/17 10:04 Abs React Lymphs (Man) 0.0 K/mm3 08/22/17 10:04 Monocytes # (Manual) 0.0 K/mm3 (0.0-0.8) 08/22/17 10:04 Eosinophils # (Manual) 0.0 K/mm3 (0.0-0.4) 08/22/17 10:04 Basophils # (Manual) 0.0 K/mm3 (0.0-0.1) 08/22/17 10:04 Metamyelocytes # 0.0 K/mm3 08/22/17 10:04 Myelocytes # 0.0 K/mm3 08/22/17 10:04 Promyelocytes # 0.0 K/mm3 08/22/17 10:04 Blast Cells # 0.0 K/mm3 08/22/17 10:04 WBC Morphology Not Reportable 08/22/17 10:04 Hypersegmented Neuts Not Reportable 08/22/17 10:04 Hyposegmented Neuts Not Reportable 08/22/17 10:04 Hypogranular Neuts Not Reportable 08/22/17 10:04 Smudge Cells Not Reportable 08/22/17 10:04 Toxic Granulation Not Reportable 08/22/17 10:04 Toxic Vacuolation Not Reportable 08/22/17 10:04 Dohle Bodies Not Reportable 08/22/17 10:04 Pelger-Huet Anomaly Not Reportable 08/22/17 10:04 Abdulkadir Rods Not Reportable 08/22/17 10:04 Platelet Estimate Appears increased 08/22/17 10:04 Clumped Platelets Not Reportable 08/22/17 10:04 Plt Clumps, EDTA Not Reportable 08/22/17 10:04 Large Platelets Few 08/22/17 10:04 Giant Platelets Not Reportable 08/22/17 10:04 Platelet Satelliting Not Reportable 08/22/17 10:04 Plt Morphology Comment Not Reportable 08/22/17 10:04 RBC Morphology Not Reportable 08/22/17 10:04 Dimorphic RBCs Not Reportable 08/22/17 10:04 Polychromasia Not Reportable 08/22/17 10:04 Hypochromasia 1+ 08/22/17 10:04 Poikilocytosis Not Reportable 08/22/17 10:04 Anisocytosis 1+ 08/22/17 10:04 Microcytosis Not Reportable 08/22/17 10:04 Macrocytosis Not Reportable 08/22/17 10:04 Spherocytes Not Reportable 08/22/17 10:04 Pappenheimer Bodies Not Reportable 08/22/17 10:04 Sickle Cells Not Reportable 08/22/17 10:04 Target Cells 1+ 08/22/17 10:04 Tear Drop Cells Rare 08/22/17 10:04 Ovalocytes 1+ 08/22/17 10:04 Helmet Cells Rare 08/22/17 10:04 [place] Bodies Not Reportable 08/22/17 10:04 [place] Rings Not Reportable 08/22/17 10:04 Marilyn Cells Not Reportable 08/22/17 10:04 Bite Cells Not Reportable 08/22/17 10:04 Crenated Cell Not Reportable 08/22/17 10:04 Elliptocytes Rare 08/22/17 10:04 Acanthocytes (Spur) Not Reportable 08/22/17 10:04 Rouleaux Not Reportable 08/22/17 10:04 Hemoglobin C Crystals Not Reportable 08/22/17 10:04 Schistocytes Not Reportable 08/22/17 10:04 Malaria parasites Not Reportable 08/22/17 10:04 [place] Bodies Not Reportable 08/22/17 10:04 Hem Pathologist Commnt No 08/22/17 10:04 PT 17.8 Sec. (12.2-14.9) H 08/21/17 03:32 INR 1.38 (0.87-1.13) H 08/21/17 03:32 VBG pH 7.480 (7.320-7.420) H 08/21/17 03:17 Sodium 139 mmol/L (137-145) 08/22/17 10:04 Potassium 3.1 mmol/L (3.6-5.0) L 08/22/17 10:04 Chloride 102.6 mmol/L (98-107) 08/22/17 10:04 Carbon Dioxide 25 mmol/L (22-30) 08/22/17 10:04 Anion Gap 15 mmol/L 08/22/17 10:04 BUN 7 mg/dL (7-17) 08/22/17 10:04 Creatinine 0.3 mg/dL (0.7-1.2) L 08/22/17 10:04 Estimated GFR > 60 ml/min 08/22/17 10:04 BUN/Creatinine Ratio 23 % 08/22/17 10:04 Glucose 99 mg/dL (65-100) 08/22/17 10:04 POC Glucose 131 (70-105) H 08/22/17 09:25 Hemoglobin A1c 5.8 % (4-6) 08/21/17 03:17 Lactic Acid 0.70 mmol/L (0.7-2.0) 08/22/17 00:22 Calcium 7.4 mg/dL (8.4-10.2) L 08/22/17 10:04 Phosphorus 2.70 mg/dL (2.5-4.5) 08/21/17 03:17 Magnesium 2.10 mg/dL (1.7-2.3) 08/21/17 03:17 Iron 11 ug/dL (37-170) L 08/22/17 14:30 Total Bilirubin 0.40 mg/dL (0.1-1.2) 08/21/17 03:17 AST 9 units/L (5-40) 08/21/17 03:17 ALT 5 units/L (7-56) L 08/21/17 03:17 Alkaline Phosphatase 90 units/L (35-129) 08/21/17 03:17 NT-Pro-B Natriuret Pep 165.7 pg/mL (0-900) 08/21/17 03:17 Total Protein 5.2 g/dL (6.3-8.2) L 08/21/17 03:17 Albumin 2.3 g/dL (3.9-5) L 08/21/17 03:17 Albumin/Globulin Ratio 0.8 % 08/21/17 03:17 Vitamin B12 1647 pg/mL (211-911) H 08/22/17 14:30 Folate 7.04 ng/mL (7.3-26.0) L 08/22/17 14:30 Urine Color Beth (Yellow) 08/21/17 06:54 Urine Turbidity Clear (Clear) 08/21/17 06:54 Urine pH 5.0 (5.0-7.0) 08/21/17 06:54 Ur Specific [place] 1.021 (1.003-1.030) 08/21/17 06:54 Urine Protein 100 mg/dl mg/dL (Negative) 08/21/17 06:54 Urine Glucose (UA) Neg mg/dL (Negative) 08/21/17 06:54 Urine Ketones Neg mg/dL (Negative) 08/21/17 06:54 Urine Blood Neg (Negative) 08/21/17 06:54 Urine Nitrite Neg (Negative) 08/21/17 06:54 Urine Bilirubin Neg (Negative) 08/21/17 06:54 Urine Urobilinogen 4.0 mg/dL (<2.0) 08/21/17 06:54 Ur Leukocyte Esterase Neg (Negative) 08/21/17 06:54 Urine WBC (Auto) 9.0 /HPF (0.0-6.0) H 08/21/17 06:54 Urine RBC (Auto) 4.0 /HPF (0.0-6.0) 08/21/17 06:54 U Epithel Cells (Auto) 11.0 /HPF (0-13.0) 08/21/17 06:54 Urine Bacteria (Auto) 4+ /HPF (Negative) 08/21/17 06:54 Urine WBC Clumps 2+ /HPF 08/21/17 06:54 Urine Mucus 3+ /HPF 08/21/17 06:54
[2017-08-23 17:56] LABS: Hematocrit 22.4 % (30.3-42.9); Hemoglobin 7.1 gm/dl (10.1-14.3); Mean Corpuscular HGB Conc 32 % (30-34); Mean Corpuscular Volume 79 fl (79-97); Platelet Count 728 K/mm3 (140-440); Red Blood Count 2.85 M/mm3 (3.65-5.03); Red Cell Distribution Width 14.5 % (13.2-15.2)
[2017-08-23 18:02] LABS: Mean Corpuscular Hemoglobin 25 pg (28-32)
[2017-08-23 18:11] LABS: BUN/Creatinine Ratio 18; Blood Urea Nitrogen 7 mg/dL (7-17); Calcium 7.2 mg/dL (8.4-10.2); Hemolysis Index 13
[2017-08-23] MEDS: VANCOMYCIN 750 MG in NACL 0.9% 250ML 250 ML IV SCH (18:26)
[2017-08-23] MEDS: SANTYL TP SCH (18:27)
[2017-08-23 19:20] LABS: Total Cells Counted 100
[2017-08-23 19:21] LABS: Anisocytosis 1+; Band Neutrophils # (Manual) 0.5 K/mm3; Basophils % (Manual) 0 % (0.0-1.8); Eosinophils % (Manual) 0 % (0.0-4.3); Ovalocytes 1+; Target Cells 1+
[2017-08-23 19:22] LABS: Hypochromasia 2+; Platelet Estimate Appears Increased
[2017-08-23] MEDS: DESYREL PO SCH (21:54)
[2017-08-23] MEDS: RisperDAL PO SCH (21:55)
[2017-08-24] MEDS: ZOSYN/NS 4.5GM/100ML 4.5 GM/100 ML VIAL IV SCH ×4 (00:28→22:23)
[2017-08-24 06:05] LABS: BUN/Creatinine Ratio 15; Blood Urea Nitrogen 6 mg/dL (7-17); Calcium 7.1 mg/dL (8.4-10.2); Hemolysis Index 0
[2017-08-24 06:27] LABS: Basophils % (Auto) 0.2 % (0.0-1.8); Eosinophils # (Auto) 0.1 K/mm3 (0.0-0.4); Eosinophils % (Auto) 0.5 % (0.0-4.3); Hematocrit 20.7 % (30.3-42.9); Hemoglobin 6.7 gm/dl (10.1-14.3); Lymphocytes # (Auto) 1.2 K/mm3 (1.2-5.4); Lymphocytes % (Auto) 8.7 % (13.4-35.0); Mean Corpuscular HGB Conc 32 % (30-34); Mean Corpuscular Volume 79 fl (79-97); Monocytes # (Auto) 0.4 K/mm3 (0.0-0.8); Monocytes % (Auto) 3.2 % (0.0-7.3); Platelet Count 668 K/mm3 (140-440); Red Blood Count 2.62 M/mm3 (3.65-5.03); Red Cell Distribution Width 14.8 % (13.2-15.2)
[2017-08-24 06:31] LABS: Mean Corpuscular Hemoglobin 26 pg (28-32)
[2017-08-24] MEDS: DAKIN'S FULL STRENGTH TP SCH ×2 (08:00→20:00)
[2017-08-24] MEDS: SANTYL TP SCH (10:00)
[2017-08-24] MEDS ORDERED: NACL 0.9% 500 ML 500 ML IV ONE (10:01)
[2017-08-24] MEDS ORDERED: SIMPLE SYRUP FEEDTUBE PRN ×2 (10:54)
[2017-08-24] MEDS ORDERED: SODIUM BICARBONATE FEEDTUBE PRN (10:54)
[2017-08-24] MEDS ORDERED: PANCREAZE DR 10,500 UNIT FEEDTUBE PRN (10:54)
--- NOTE | 2017-08-24 11:16 | Progress Note ---
Assessment and Plan - Patient Problems (1) Decubitus ulcer of heel, bilateral, unstageable Current Visit: Yes Status: Acute (2) Unstageable pressure ulcer of sacral region Current Visit: Yes Status: Acute (3) Severe protein-calorie malnutrition Current Visit: Yes Status: Acute Plan to address problem: 1) May begin tube feedings today. 2) Will discuss with daughter the terminal system operator plan. If we are to be aggressive, I would recommend a colonoscopy to r/o a neoplasm as the source of her severe iron deficiency anemia. She also needs bilateral AKA's and probably a colostomy to divert stool from her stage 4 sacral decubitus ulcer. If the daughter desires to be aggressive, I will probably recommend at least a month of aggressive tube feedings to improve her severe protein calorie malnutrition and give her a better chance of tolerating the above surgeries. The pt might also continue to deteriorate despite her wounds being clean and the increased nutritional support in which case it might be easier for the family to just pursue comfort measures. (4) UTI (urinary tract infection) Current Visit: Yes Status: Acute Qualifiers: Urinary tract infection type: acute cystitis Subjective Date of service: 08/24/17 Patient Reports: Positive: no new complaints Objective Vital Signs - 12hr 08/24/17 08/24/17 08/24/17 00:31 01:55 04:35 Temperature 97.5 F L 97.6 F Pulse Rate 87 81 Respiratory 20 20 Rate Blood Pressure 131/63 122/55 O2 Sat by Pulse 100 92 100 Oximetry 08/24/17 06:56 Temperature Pulse Rate 87 Respiratory Rate Blood Pressure O2 Sat by Pulse Oximetry - Abdomen PM_46_EXABD1 4, PM_46_EXABD1 6, PM_46_EXABD1 8 Hernia: none - Labs 08/24/17 05:20 08/24/17 05:20 Diabetes panel 08/23/17 08/24/17 Range/Units 17:33 05:20 Sodium 141 144 (137-145) mmol/L Potassium 3.7 3.7 (3.6-5.0) mmol/L Chloride 103.5 106.7 (98-107) mmol/L Carbon Dioxide 22 23 (22-30) mmol/L BUN 7 6 L (7-17) mg/dL Creatinine 0.4 L 0.4 L (0.7-1.2) mg/dL Glucose 90 72 (65-100) mg/dL Calcium 7.2 L 7.1 L (8.4-10.2) mg/dL Calcium panel 08/23/17 08/24/17 Range/Units 17:33 05:20 Calcium 7.2 L 7.1 L (8.4-10.2) mg/dL Phosphorus 2.60 (2.5-4.5) mg/dL Pituitary panel 08/23/17 08/24/17 Range/Units 17:33 05:20 Sodium 141 144 (137-145) mmol/L Potassium 3.7 3.7 (3.6-5.0) mmol/L Chloride 103.5 106.7 (98-107) mmol/L Carbon Dioxide 22 23 (22-30) mmol/L BUN 7 6 L (7-17) mg/dL Creatinine 0.4 L 0.4 L (0.7-1.2) mg/dL Glucose 90 72 (65-100) mg/dL Calcium 7.2 L 7.1 L (8.4-10.2) mg/dL Adrenal panel 08/23/17 08/24/17 Range/Units 17:33 05:20 Sodium 141 144 (137-145) mmol/L Potassium 3.7 3.7 (3.6-5.0) mmol/L Chloride 103.5 106.7 (98-107) mmol/L Carbon Dioxide 22 23 (22-30) mmol/L BUN 7 6 L (7-17) mg/dL Creatinine 0.4 L 0.4 L (0.7-1.2) mg/dL Glucose 90 72 (65-100) mg/dL Calcium 7.2 L 7.1 L (8.4-10.2) mg/dL
[2017-08-24] MEDS: HEPARIN SUB-Q SCH ×2 (11:18→22:21)
[2017-08-24] MEDS: ZESTRIL PO SCH (11:20)
[2017-08-24] MEDS: SODIUM CHLORIDE FLUSH SYRINGE 10 ML IV SCH ×2 (11:21→22:26)
[2017-08-24] MEDS: ARICEPT PO SCH (11:21)
[2017-08-24] MEDS ORDERED: NACL 0.9% 500 ML 500 ML ONE (15:03)
[2017-08-24] MEDS ORDERED: LASIX IV ONE (16:00)
[2017-08-24] MEDS ORDERED: LASIX ONE (18:21)
[2017-08-24] MEDS: VANCOMYCIN 750 MG in NACL 0.9% 250ML 250 ML IV SCH (19:36)
--- NOTE | 2017-08-24 20:50 | Progress Note ---
Assessment and Plan Assessment and plan: --Anemia; hemoglobin 6.7 Type and cross, transfuse 2 units of PRBC per protocol Closely monitor H&H and transfuse additional as needed, --Sacral decubitus ulcers; stage III Status post debridement, continue supportive care Wound care following --Bilateral heel decubiti; stage III -IV Status post debridement, continue wound and supportive care, antibiotics --Severe protein calorie malnutrition; Poor oral intake due to dysphagia --Dysphagia;Barium swallow today, if abnormal Possible PEG placement ,surgery following --Metabolic encephalopathy; multifactorial Secondary to sepsis, advanced age, dementia Supportive care --Sepsis; secondary to UTI present on admission Continue current antibiotics follow cultures --Sepsis secondary to multiple decubitus ulcers [different stages]; present on admission Status post debridement, Continue current antibiotic and wound care --Leukocytosis; secondary to sepsis, closely monitor --Hypokalemia; replace per protocol, monitor levels --Hypertension; moderate control, continue current antihypertensives and when necessary medications --DVT prophylaxis; Lovenox --Full CODE STATUS --DC planning; DC back to SNF when medically stable History Interval history: Patient seen and examined medical records reviewed Patient's hemoglobin significantly dropped Type and cross and transfuse 2 units PRBC Vital signs stable Hospitalist Physical - Constitutional Vitals: Temp Pulse Resp BP Pulse Ox 97.8 F 80 20 132/78 99 08/24/17 18:42 08/24/17 18:12 08/24/17 18:12 08/24/17 18:12 08/24/17 18:12 General appearance: Present: no acute distress, cachectic, disheveled - EENT Eyes: Present: PERRL, EOM intact - Neck Neck: Present: supple, normal ROM - Respiratory Respiratory effort: normal Respiratory: bilateral: diminished, negative: rales, rhonchi, wheezing - Cardiovascular Rhythm: regular Heart Sounds: Present: S1 & S2 - Extremities Extremities: abnormal (multiple decubiti heel, dressing in place) - Abdominal General gastrointestinal: soft, non-tender, non-distended, normal bowel sounds - Integumentary Integumentary: Present: clear, warm - Psychiatric Psychiatric: other (noncommunicative) - Neurologic Neurologic: other (noncommunicative) Results - Labs CBC & Chem 7: 08/24/17 05:20 08/24/17 05:20 Labs: Laboratory Last Values WBC 13.6 K/mm3 (4.5-11.0) H 08/24/17 05:20 RBC 2.62 M/mm3 (3.65-5.03) L 08/24/17 05:20 Hgb 6.7 gm/dl (10.1-14.3) L 08/24/17 05:20 Hct 20.7 % (30.3-42.9) L 08/24/17 05:20 MCV 79 fl (79-97) 08/24/17 05:20 MCH 26 pg (28-32) L 08/24/17 05:20 MCHC 32 % (30-34) 08/24/17 05:20 RDW 14.8 % (13.2-15.2) 08/24/17 05:20 Plt Count 668 K/mm3 (140-440) H 08/24/17 05:20 Lymph % (Auto) 8.7 % (13.4-35.0) L 08/24/17 05:20 [place] % (Auto) 3.2 % (0.0-7.3) 08/24/17 05:20 Eos % (Auto) 0.5 % (0.0-4.3) 08/24/17 05:20 Baso % (Auto) 0.2 % (0.0-1.8) 08/24/17 05:20 Lymph # 1.2 K/mm3 (1.2-5.4) 08/24/17 05:20 [place] # 0.4 K/mm3 (0.0-0.8) 08/24/17 05:20 Eos # 0.1 K/mm3 (0.0-0.4) 08/24/17 05:20 Baso # 0.0 K/mm3 (0.0-0.1) 08/24/17 05:20 Add Manual Diff Complete 08/23/17 17:34 Total Counted 100 08/23/17 17:34 Seg Neutrophils % 87.4 % (40.0-70.0) H 08/24/17 05:20 Seg Neuts % (Manual) 92.0 % (40.0-70.0) H 08/23/17 17:34 Band Neutrophils % 3.0 % 08/23/17 17:34 Lymphocytes % (Manual) 4.0 % (13.4-35.0) L 08/23/17 17:34 Reactive Lymphs % (Man) 0 % 08/23/17 17:34 Monocytes % (Manual) 1.0 % (0.0-7.3) 08/23/17 17:34 Eosinophils % (Manual) 0 % (0.0-4.3) 08/23/17 17:34 Basophils % (Manual) 0 % (0.0-1.8) 08/23/17 17:34 Metamyelocytes % 0 % 08/23/17 17:34 Myelocytes % 0 % 08/23/17 17:34 Promyelocytes % 0 % 08/23/17 17:34 Blast Cells % 0 % 08/23/17 17:34 Nucleated RBC % Not Reportable 08/23/17 17:34 Seg Neutrophils # 11.9 K/mm3 (1.8-7.7) H 08/24/17 05:20 Seg Neutrophils # Man 16.3 K/mm3 (1.8-7.7) H 08/23/17 17:34 Band Neutrophils # 0.5 K/mm3 08/23/17 17:34 Lymphocytes # (Manual) 0.7 K/mm3 (1.2-5.4) L 08/23/17 17:34 Abs React Lymphs (Man) 0.0 K/mm3 08/23/17 17:34 Monocytes # (Manual) 0.2 K/mm3 (0.0-0.8) 08/23/17 17:34 Eosinophils # (Manual) 0.0 K/mm3 (0.0-0.4) 08/23/17 17:34 Basophils # (Manual) 0.0 K/mm3 (0.0-0.1) 08/23/17 17:34 Metamyelocytes # 0.0 K/mm3 08/23/17 17:34 Myelocytes # 0.0 K/mm3 08/23/17 17:34 Promyelocytes # 0.0 K/mm3 08/23/17 17:34 Blast Cells # 0.0 K/mm3 08/23/17 17:34 WBC Morphology Not Reportable 08/23/17 17:34 Hypersegmented Neuts Not Reportable 08/23/17 17:34 Hyposegmented Neuts Not Reportable 08/23/17 17:34 Hypogranular Neuts Not Reportable 08/23/17 17:34 Smudge Cells Not Reportable 08/23/17 17:34 Toxic Granulation Not Reportable 08/23/17 17:34 Toxic Vacuolation Not Reportable 08/23/17 17:34 Dohle Bodies Not Reportable 08/23/17 17:34 Pelger-Huet Anomaly Not Reportable 08/23/17 17:34 Abdulkadir Rods Not Reportable 08/23/17 17:34 Platelet Estimate Appears increased 08/23/17 17:34 Clumped Platelets Not Reportable 08/23/17 17:34 Plt Clumps, EDTA Not Reportable 08/23/17 17:34 Large Platelets Not Reportable 08/23/17 17:34 Giant Platelets Not Reportable 08/23/17 17:34 Platelet Satelliting Not Reportable 08/23/17 17:34 Plt Morphology Comment Not Reportable 08/23/17 17:34 RBC Morphology Not Reportable 08/23/17 17:34 Dimorphic RBCs Not Reportable 08/23/17 17:34 Polychromasia Not Reportable 08/23/17 17:34 Hypochromasia 2+ 08/23/17 17:34 Poikilocytosis Not Reportable 08/23/17 17:34 Anisocytosis 1+ 08/23/17 17:34 Microcytosis Not Reportable 08/23/17 17:34 Macrocytosis Not Reportable 08/23/17 17:34 Spherocytes Not Reportable 08/23/17 17:34 Pappenheimer Bodies Not Reportable 08/23/17 17:34 Sickle Cells Not Reportable 08/23/17 17:34 Target Cells 1+ 08/23/17 17:34 Tear Drop Cells Not Reportable 08/23/17 17:34 Ovalocytes 1+ 08/23/17 17:34 Helmet Cells Not Reportable 08/23/17 17:34 [place] Bodies Not Reportable 08/23/17 17:34 [place] Rings Not Reportable 08/23/17 17:34 Marilyn Cells Not Reportable 08/23/17 17:34 Bite Cells Not Reportable 08/23/17 17:34 Crenated Cell Not Reportable 08/23/17 17:34 Elliptocytes Not Reportable 08/23/17 17:34 Acanthocytes (Spur) Not Reportable 08/23/17 17:34 Rouleaux Not Reportable 08/23/17 17:34 Hemoglobin C Crystals Not Reportable 08/23/17 17:34 Schistocytes Not Reportable 08/23/17 17:34 Malaria parasites Not Reportable 08/23/17 17:34 Dewayne Bodies Not Reportable 08/23/17 17:34 Hem Pathologist Commnt No 08/23/17 17:34 PT 17.8 Sec. (12.2-14.9) H 08/21/17 03:32 INR 1.38 (0.87-1.13) H 08/21/17 03:32 VBG pH 7.480 (7.320-7.420) H 08/21/17 03:17 Sodium 144 mmol/L (137-145) 08/24/17 05:20 Potassium 3.7 mmol/L (3.6-5.0) 08/24/17 05:20 Chloride 106.7 mmol/L (98-107) 08/24/17 05:20 Carbon Dioxide 23 mmol/L (22-30) 08/24/17 05:20 Anion Gap 18 mmol/L 08/24/17 05:20 BUN 6 mg/dL (7-17) L 08/24/17 05:20 Creatinine 0.4 mg/dL (0.7-1.2) L 08/24/17 05:20 Estimated GFR > 60 ml/min 08/24/17 05:20 BUN/Creatinine Ratio 15 % 08/24/17 05:20 Glucose 72 mg/dL (65-100) 08/24/17 05:20 POC Glucose 98 (70-105) 08/23/17 17:08 Hemoglobin A1c 5.8 % (4-6) 08/21/17 03:17 Lactic Acid 0.70 mmol/L (0.7-2.0) 08/22/17 00:22 Calcium 7.1 mg/dL (8.4-10.2) L 08/24/17 05:20 Phosphorus 2.60 mg/dL (2.5-4.5) 08/24/17 05:20 Magnesium 2.00 mg/dL (1.7-2.3) 08/24/17 05:20 Iron 11 ug/dL (37-170) L 08/22/17 14:30 Total Bilirubin 0.40 mg/dL (0.1-1.2) 08/21/17 03:17 AST 9 units/L (5-40) 08/21/17 03:17 ALT 5 units/L (7-56) L 08/21/17 03:17 Alkaline Phosphatase 90 units/L (35-129) 08/21/17 03:17 NT-Pro-B Natriuret Pep 165.7 pg/mL (0-900) 08/21/17 03:17 Total Protein 5.2 g/dL (6.3-8.2) L 08/21/17 03:17 Albumin 2.3 g/dL (3.9-5) L 08/21/17 03:17 Albumin/Globulin Ratio 0.8 % 08/21/17 03:17 Vitamin B12 1647 pg/mL (211-911) H 08/22/17 14:30 Folate 7.04 ng/mL (7.3-26.0) L 08/22/17 14:30 TSH 1.910 mlU/mL (0.270-4.200) 08/24/17 13:41 Urine Color Beth (Yellow) 08/21/17 06:54 Urine Turbidity Clear (Clear) 08/21/17 06:54 Urine pH 5.0 (5.0-7.0) 08/21/17 06:54 Ur Specific [place] 1.021 (1.003-1.030) 08/21/17 06:54 Urine Protein 100 mg/dl mg/dL (Negative) 08/21/17 06:54 Urine Glucose (UA) Neg mg/dL (Negative) 08/21/17 06:54 Urine Ketones Neg mg/dL (Negative) 08/21/17 06:54 Urine Blood Neg (Negative) 08/21/17 06:54 Urine Nitrite Neg (Negative) 08/21/17 06:54 Urine Bilirubin Neg (Negative) 08/21/17 06:54 Urine Urobilinogen 4.0 mg/dL (<2.0) 08/21/17 06:54 Ur Leukocyte Esterase Neg (Negative) 08/21/17 06:54 Urine WBC (Auto) 9.0 /HPF (0.0-6.0) H 08/21/17 06:54 Urine RBC (Auto) 4.0 /HPF (0.0-6.0) 08/21/17 06:54 U Epithel Cells (Auto) 11.0 /HPF (0-13.0) 08/21/17 06:54 Urine Bacteria (Auto) 4+ /HPF (Negative) 08/21/17 06:54 Urine WBC Clumps 2+ /HPF 08/21/17 06:54 Urine Mucus 3+ /HPF 08/21/17 06:54 Blood Type B POSITIVE 08/24/17 10:43 Antibody Screen Negative 08/24/17 10:43 Crossmatch See Detail 08/24/17 10:43
[2017-08-24] MEDS: DESYREL PO SCH (22:22)
[2017-08-24] MEDS: RisperDAL PO SCH (22:22)
[2017-08-24] MEDS: DepaKENE Liq PO SCH (23:53)
[2017-08-25] MEDS: ZOSYN/NS 4.5GM/100ML 4.5 GM/100 ML VIAL IV SCH ×3 (06:55→23:02)
[2017-08-25] MEDS: DAKIN'S FULL STRENGTH TP SCH ×2 (08:27→23:01)
[2017-08-25] MEDS: SANTYL TP SCH (10:28)
[2017-08-25] MEDS: ZESTRIL PO SCH (10:50)
[2017-08-25] MEDS: HEPARIN SUB-Q SCH ×2 (10:50→23:00)
[2017-08-25] MEDS: ARICEPT PO SCH (10:51)
[2017-08-25] MEDS: SODIUM CHLORIDE FLUSH SYRINGE 10 ML IV SCH ×2 (10:52→23:03)
--- NOTE | 2017-08-25 12:22 | Progress Note ---
Assessment and Plan Assessment and plan: --Anemia; hemoglobin 6.7, received 1 unit PRBC yesterday Closely monitor H&H and transfuse additional as needed, --Sacral decubitus ulcers; stage III Status post debridement, continue supportive care Wound care following --Bilateral heel decubiti; stage III -IV Status post debridement, continue wound and supportive care, antibiotics --Severe protein calorie malnutrition; Poor oral intake due to dysphagia --Dysphagia;Barium swallow today, if abnormal s/p PEG placement , continue tube feeding --Metabolic encephalopathy; multifactorial Secondary to sepsis, advanced age, dementia --Sepsis; secondary to UTI present on admission Continue current antibiotics follow cultures --Sepsis secondary to multiple decubitus ulcers [different stages]; present on admission Status post debridement, Continue current antibiotic and wound care --Leukocytosis; secondary to sepsis, closely monitor --Hypokalemia; replace per protocol, monitor levels --Hypertension; moderate control, continue current antihypertensives and when necessary medications --DVT prophylaxis; Lovenox --DNR status --DC planning; DC back to SNF when medically stable Plan of care discussed with the daughter over the phone And son at the bedside Hospice evaluation History Interval history: Patient seen and examined medical records reviewed Received 1 unit PRBC yesterday Patient status post PEG, on PEG feeds Minimally communicative Vital signs reviewed stable Increased oral secretions Hospitalist Physical - Constitutional Vitals: Temp Pulse Resp BP Pulse Ox 97.3 F L 75 20 135/68 95 08/25/17 05:41 08/25/17 05:41 08/25/17 05:41 08/25/17 05:41 08/25/17 12:15 General appearance: Present: no acute distress, cachectic, disheveled, other ( increased oral secretions) - EENT Eyes: Present: PERRL, EOM intact - Neck Neck: Present: supple, normal ROM - Respiratory Respiratory effort: normal Respiratory: bilateral: diminished, rhonchi, negative: rales, wheezing - Cardiovascular Rhythm: regular Heart Sounds: Present: S1 & S2 - Extremities Extremities: abnormal (on the decubitus ulcers bilateral heels, dressing in place) Extremity abnormal: edema - Abdominal General gastrointestinal: soft, non-tender, non-distended, normal bowel sounds - Integumentary Integumentary: Present: clear, warm - Psychiatric Psychiatric: other (minimally communicative) - Neurologic Neurologic: other (minimally communicative) Results - Labs CBC & Chem 7: 08/24/17 05:20 08/24/17 05:20 Labs: Laboratory Last Values WBC 13.6 K/mm3 (4.5-11.0) H 08/24/17 05:20 RBC 2.62 M/mm3 (3.65-5.03) L 08/24/17 05:20 Hgb 6.7 gm/dl (10.1-14.3) L 08/24/17 05:20 Hct 20.7 % (30.3-42.9) L 08/24/17 05:20 MCV 79 fl (79-97) 08/24/17 05:20 MCH 26 pg (28-32) L 08/24/17 05:20 MCHC 32 % (30-34) 08/24/17 05:20 RDW 14.8 % (13.2-15.2) 08/24/17 05:20 Plt Count 668 K/mm3 (140-440) H 08/24/17 05:20 Lymph % (Auto) 8.7 % (13.4-35.0) L 08/24/17 05:20 [place] % (Auto) 3.2 % (0.0-7.3) 08/24/17 05:20 Eos % (Auto) 0.5 % (0.0-4.3) 08/24/17 05:20 Baso % (Auto) 0.2 % (0.0-1.8) 08/24/17 05:20 Lymph # 1.2 K/mm3 (1.2-5.4) 08/24/17 05:20 [place] # 0.4 K/mm3 (0.0-0.8) 08/24/17 05:20 Eos # 0.1 K/mm3 (0.0-0.4) 08/24/17 05:20 Baso # 0.0 K/mm3 (0.0-0.1) 08/24/17 05:20 Add Manual Diff Complete 08/23/17 17:34 Total Counted 100 08/23/17 17:34 Seg Neutrophils % 87.4 % (40.0-70.0) H 08/24/17 05:20 Seg Neuts % (Manual) 92.0 % (40.0-70.0) H 08/23/17 17:34 Band Neutrophils % 3.0 % 08/23/17 17:34 Lymphocytes % (Manual) 4.0 % (13.4-35.0) L 08/23/17 17:34 Reactive Lymphs % (Man) 0 % 08/23/17 17:34 Monocytes % (Manual) 1.0 % (0.0-7.3) 08/23/17 17:34 Eosinophils % (Manual) 0 % (0.0-4.3) 08/23/17 17:34 Basophils % (Manual) 0 % (0.0-1.8) 08/23/17 17:34 Metamyelocytes % 0 % 08/23/17 17:34 Myelocytes % 0 % 08/23/17 17:34 Promyelocytes % 0 % 08/23/17 17:34 Blast Cells % 0 % 08/23/17 17:34 Nucleated RBC % Not Reportable 08/23/17 17:34 Seg Neutrophils # 11.9 K/mm3 (1.8-7.7) H 08/24/17 05:20 Seg Neutrophils # Man 16.3 K/mm3 (1.8-7.7) H 08/23/17 17:34 Band Neutrophils # 0.5 K/mm3 08/23/17 17:34 Lymphocytes # (Manual) 0.7 K/mm3 (1.2-5.4) L 08/23/17 17:34 Abs React Lymphs (Man) 0.0 K/mm3 08/23/17 17:34 Monocytes # (Manual) 0.2 K/mm3 (0.0-0.8) 08/23/17 17:34 Eosinophils # (Manual) 0.0 K/mm3 (0.0-0.4) 08/23/17 17:34 Basophils # (Manual) 0.0 K/mm3 (0.0-0.1) 08/23/17 17:34 Metamyelocytes # 0.0 K/mm3 08/23/17 17:34 Myelocytes # 0.0 K/mm3 08/23/17 17:34 Promyelocytes # 0.0 K/mm3 08/23/17 17:34 Blast Cells # 0.0 K/mm3 08/23/17 17:34 WBC Morphology Not Reportable 08/23/17 17:34 Hypersegmented Neuts Not Reportable 08/23/17 17:34 Hyposegmented Neuts Not Reportable 08/23/17 17:34 Hypogranular Neuts Not Reportable 08/23/17 17:34 Smudge Cells Not Reportable 08/23/17 17:34 Toxic Granulation Not Reportable 08/23/17 17:34 Toxic Vacuolation Not Reportable 08/23/17 17:34 Dohle Bodies Not Reportable 08/23/17 17:34 Pelger-Huet Anomaly Not Reportable 08/23/17 17:34 Abdulkadir Rods Not Reportable 08/23/17 17:34 Platelet Estimate Appears increased 08/23/17 17:34 Clumped Platelets Not Reportable 08/23/17 17:34 Plt Clumps, EDTA Not Reportable 08/23/17 17:34 Large Platelets Not Reportable 08/23/17 17:34 Giant Platelets Not Reportable 08/23/17 17:34 Platelet Satelliting Not Reportable 08/23/17 17:34 Plt Morphology Comment Not Reportable 08/23/17 17:34 RBC Morphology Not Reportable 08/23/17 17:34 Dimorphic RBCs Not Reportable 08/23/17 17:34 Polychromasia Not Reportable 08/23/17 17:34 Hypochromasia 2+ 08/23/17 17:34 Poikilocytosis Not Reportable 08/23/17 17:34 Anisocytosis 1+ 08/23/17 17:34 Microcytosis Not Reportable 08/23/17 17:34 Macrocytosis Not Reportable 08/23/17 17:34 Spherocytes Not Reportable 08/23/17 17:34 Pappenheimer Bodies Not Reportable 08/23/17 17:34 Sickle Cells Not Reportable 08/23/17 17:34 Target Cells 1+ 08/23/17 17:34 Tear Drop Cells Not Reportable 08/23/17 17:34 Ovalocytes 1+ 08/23/17 17:34 Helmet Cells Not Reportable 08/23/17 17:34 Ordone[place] Bodies Not Reportable 08/23/17 17:34 [place] Rings Not Reportable 08/23/17 17:34 Marilyn Cells Not Reportable 08/23/17 17:34 Bite Cells Not Reportable 08/23/17 17:34 Crenated Cell Not Reportable 08/23/17 17:34 Elliptocytes Not Reportable 08/23/17 17:34 Acanthocytes (Spur) Not Reportable 08/23/17 17:34 Rouleaux Not Reportable 08/23/17 17:34 Hemoglobin C Crystals Not Reportable 08/23/17 17:34 Schistocytes Not Reportable 08/23/17 17:34 Malaria parasites Not Reportable 08/23/17 17:34 Dewayne Bodies Not Reportable 08/23/17 17:34 Hem Pathologist Commnt No 08/23/17 17:34 PT 17.8 Sec. (12.2-14.9) H 08/21/17 03:32 INR 1.38 (0.87-1.13) H 08/21/17 03:32 VBG pH 7.480 (7.320-7.420) H 08/21/17 03:17 Sodium 144 mmol/L (137-145) 08/24/17 05:20 Potassium 3.7 mmol/L (3.6-5.0) 08/24/17 05:20 Chloride 106.7 mmol/L (98-107) 08/24/17 05:20 Carbon Dioxide 23 mmol/L (22-30) 08/24/17 05:20 Anion Gap 18 mmol/L 08/24/17 05:20 BUN 6 mg/dL (7-17) L 08/24/17 05:20 Creatinine 0.4 mg/dL (0.7-1.2) L 08/24/17 05:20 Estimated GFR > 60 ml/min 08/24/17 05:20 BUN/Creatinine Ratio 15 % 08/24/17 05:20 Glucose 72 mg/dL (65-100) 08/24/17 05:20 POC Glucose 98 (70-105) 08/23/17 17:08 Hemoglobin A1c 5.8 % (4-6) 08/21/17 03:17 Lactic Acid 0.70 mmol/L (0.7-2.0) 08/22/17 00:22 Calcium 7.1 mg/dL (8.4-10.2) L 08/24/17 05:20 Phosphorus 2.60 mg/dL (2.5-4.5) 08/24/17 05:20 Magnesium 2.00 mg/dL (1.7-2.3) 08/24/17 05:20 Iron 11 ug/dL (37-170) L 08/22/17 14:30 Total Bilirubin 0.40 mg/dL (0.1-1.2) 08/21/17 03:17 AST 9 units/L (5-40) 08/21/17 03:17 ALT 5 units/L (7-56) L 08/21/17 03:17 Alkaline Phosphatase 90 units/L (35-129) 08/21/17 03:17 NT-Pro-B Natriuret Pep 165.7 pg/mL (0-900) 08/21/17 03:17 Total Protein 5.2 g/dL (6.3-8.2) L 08/21/17 03:17 Albumin 2.3 g/dL (3.9-5) L 08/21/17 03:17 Albumin/Globulin Ratio 0.8 % 08/21/17 03:17 Vitamin B12 1647 pg/mL (211-911) H 08/22/17 14:30 Folate 7.04 ng/mL (7.3-26.0) L 08/22/17 14:30 TSH 1.910 mlU/mL (0.270-4.200) 08/24/17 13:41 Urine Color Beth (Yellow) 08/21/17 06:54 Urine Turbidity Clear (Clear) 08/21/17 06:54 Urine pH 5.0 (5.0-7.0) 08/21/17 06:54 Ur Specific [place] 1.021 (1.003-1.030) 08/21/17 06:54 Urine Protein 100 mg/dl mg/dL (Negative) 08/21/17 06:54 Urine Glucose (UA) Neg mg/dL (Negative) 08/21/17 06:54 Urine Ketones Neg mg/dL (Negative) 08/21/17 06:54 Urine Blood Neg (Negative) 08/21/17 06:54 Urine Nitrite Neg (Negative) 08/21/17 06:54 Urine Bilirubin Neg (Negative) 08/21/17 06:54 Urine Urobilinogen 4.0 mg/dL (<2.0) 08/21/17 06:54 Ur Leukocyte Esterase Neg (Negative) 08/21/17 06:54 Urine WBC (Auto) 9.0 /HPF (0.0-6.0) H 08/21/17 06:54 Urine RBC (Auto) 4.0 /HPF (0.0-6.0) 08/21/17 06:54 U Epithel Cells (Auto) 11.0 /HPF (0-13.0) 08/21/17 06:54 Urine Bacteria (Auto) 4+ /HPF (Negative) 08/21/17 06:54 Urine WBC Clumps 2+ /HPF 08/21/17 06:54 Urine Mucus 3+ /HPF 08/21/17 06:54 Blood Type B POSITIVE 08/24/17 10:43 Antibody Screen Negative 08/24/17 10:43 Crossmatch See Detail 08/24/17 10:43
[2017-08-25 17:46] LABS: Basophils % (Auto) 0.1 % (0.0-1.8); Eosinophils # (Auto) 0.1 K/mm3 (0.0-0.4); Eosinophils % (Auto) 0.3 % (0.0-4.3); Hemoglobin 9.4 gm/dl (10.1-14.3); Lymphocytes # (Auto) 1.2 K/mm3 (1.2-5.4); Mean Corpuscular HGB Conc 32 % (30-34); Mean Corpuscular Volume 80 fl (79-97); Monocytes # (Auto) 0.6 K/mm3 (0.0-0.8); Monocytes % (Auto) 3.9 % (0.0-7.3); Platelet Count 763 K/mm3 (140-440); Red Blood Count 3.64 M/mm3 (3.65-5.03)
[2017-08-25 17:52] LABS: Mean Corpuscular Hemoglobin 26 pg (28-32)
[2017-08-25] MEDS: VANCOMYCIN 750 MG in NACL 0.9% 250ML 250 ML IV SCH (19:29)
[2017-08-25] MEDS: DESYREL PO SCH (22:59)
[2017-08-25] MEDS: DepaKENE Liq PO SCH (22:59)
[2017-08-25] MEDS: RisperDAL PO SCH (22:59)
[2017-08-26] MEDS: ZOSYN/NS 4.5GM/100ML 4.5 GM/100 ML VIAL IV SCH ×3 (05:55→22:43)
[2017-08-26] MEDS: DAKIN'S FULL STRENGTH TP SCH ×2 (08:08→22:46)
[2017-08-26] MEDS: SANTYL TP SCH (10:48)
[2017-08-26] MEDS: SODIUM CHLORIDE FLUSH SYRINGE 10 ML IV SCH ×2 (10:49→22:45)
[2017-08-26] MEDS: HEPARIN SUB-Q SCH ×2 (10:50→22:44)
[2017-08-26] MEDS: ARICEPT PO SCH (10:50)
[2017-08-26] MEDS: ZESTRIL PO SCH (10:51)
--- NOTE | 2017-08-26 14:40 | Progress Note ---
Assessment and Plan - Patient Problems (1) Decubitus ulcer of heel, bilateral, unstageable Current Visit: Yes Status: Acute Plan to address problem: 1) I had a long discussion with the pt's daughter and son. For now, we have decided to postpone any surgery and give her PEG tube feedings for at least a month. She will be seen in [facility] weekly re her sacral and bilateral heel wounds. In 4-6 weeks, we will consider a colonoscopy to r/o a colonic neoplasm as the source of her iron deficiency anemia. Bilateral AKA's and a diverting colostomy are also in the director long term care picture if she continues to improve. (2) Unstageable pressure ulcer of sacral region Current Visit: Yes Status: Acute (3) Severe protein-calorie malnutrition Current Visit: Yes Status: Acute (4) UTI (urinary tract infection) Current Visit: Yes Status: Acute Qualifiers: Urinary tract infection type: acute cystitis Subjective Date of service: 08/26/17 Patient Reports: Positive: no new complaints Objective Vital Signs - 12hr 08/26/17 08/26/17 08/26/17 08:17 10:15 10:51 Temperature 98.3 F Pulse Rate 81 81 Respiratory 20 Rate Blood Pressure 138/72 138/72 O2 Sat by Pulse 99 98 Oximetry 08/26/17 12:57 Temperature 98.5 F Pulse Rate 81 Respiratory 20 Rate Blood Pressure 142/65 O2 Sat by Pulse 98 Oximetry - Respiratory normal expansion, normal respiratory effort, clear to percussion, clear to auscultation - Abdomen [id number] 4, [id number] 6, [id number] 8 Hernia: none - Labs 08/25/17 17:06 08/24/17 05:20
--- NOTE | 2017-08-26 16:27 | Fluoroscopy Report ---
MODIFIED BARIUM SWALLOW: 08/23/17 CLINICAL: Dysphagia. FINDINGS: The patient ingested barium impregnated substances of varying consistencies and swallowing was observed fluoroscopically. . For more detail, please refer to the speech pathologist's report.
--- NOTE | 2017-08-26 17:01 | Vascular Lab Report ---
LOWER EXTREMITY ARTERIAL DUPLEX: REASON FOR EXAM: Peripheral arterial disease. COMMENTS ON THE RIGHT: Triphasic waveforms are seen proximally. Triphasic waveforms are seen distally. Monophasic flow is noted in the posterior tibial artery No significant velocity gradients are identified. Scattered plaque is seen throughout. Findings are consistent with mildly abnormal perfusion. Findings may not be consistent with the ability to heal distal wounds. COMMENTS ON THE LEFT: Triphasic waveforms are seen proximally. Biphasic waveforms are seen distally. No significant velocity gradients are identified. No significant plaque is identified. Findings are consistent with normal perfusion. Findings are consistent with the ability to heal distal wounds. 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 Consider further evaluation. LEFT:Essentially normal arterial flow.
[2017-08-26] MEDS: VANCOMYCIN 750 MG in NACL 0.9% 250ML 250 ML IV SCH (17:45)
--- NOTE | 2017-08-26 19:21 | Progress Note ---
Assessment and Plan Assessment and plan: --Anemia; hemoglobin 6.7-9.4, received 1 unit PRBC yesterday Closely monitor H&H and transfuse additional as needed, --Sacral decubitus ulcers; stage III Status post debridement, continue supportive care Wound care following --Bilateral heel decubiti; stage III -IV Status post debridement, continue wound and supportive care, antibiotics --Severe protein calorie malnutrition; Poor oral intake due to dysphagia --Dysphagia;Barium swallow today, if abnormal s/p PEG placement , continue tube feeding --Metabolic encephalopathy; multifactorial Secondary to sepsis, advanced age, dementia --Sepsis; secondary to UTI present on admission Continue current antibiotics follow cultures --Sepsis secondary to multiple decubitus ulcers [different stages]; present on admission Status post debridement, Continue current antibiotic and wound care --Leukocytosis; secondary to sepsis, closely monitor --Hypokalemia; replace per protocol, monitor levels --Hypertension; moderate control, continue current antihypertensives and when necessary medications --DVT prophylaxis; Lovenox --DNR status --DC planning; DC back to SNF when medically stable Plan of care discussed with the daughter over the phone And son at the bedside Discussed the case with wound care surgeon Dr. Blue Mixon to discharge the patient admitted to LTAC/SNF Follow wound care once a week Plan bilateral AKA after 1 month Possible discharge tomorrow if stable History Interval history: Patient seen and examined medical records reviewed Noncommunicative, no new complaints Vital signs reviewed stable Hospitalist Physical - Constitutional Vitals: Temp Pulse Resp BP Pulse Ox 98.5 F 81 20 142/65 98 08/26/17 12:57 08/26/17 12:57 08/26/17 12:57 08/26/17 12:57 08/26/17 12:57 General appearance: Present: no acute distress, cachectic, disheveled, other ( increased oral secretions) - EENT Eyes: Present: PERRL, EOM intact - Neck Neck: Present: supple, normal ROM - Respiratory Respiratory effort: normal Respiratory: bilateral: diminished, negative: rales, rhonchi, wheezing - Cardiovascular Rhythm: regular Heart Sounds: Present: S1 & S2 - Extremities Extremities: abnormal (stage III/4 decubitus ulcers bilateral heels, dressing in place) Extremity abnormal: edema - Abdominal General gastrointestinal: soft, non-tender, non-distended, normal bowel sounds, other (PEG tube in place) - Integumentary Integumentary: Present: clear, warm - Psychiatric Psychiatric: other (noncommunicative) - Neurologic Neurologic: other (noncommunicative) - Additional findings Additional findings: 4 sacral decubitus status post debridement Results - Labs CBC & Chem 7: 08/25/17 17:06 08/24/17 05:20 Labs: Laboratory Last Values WBC 15.0 K/mm3 (4.5-11.0) H 08/25/17 17:06 RBC 3.64 M/mm3 (3.65-5.03) L 08/25/17 17:06 Hgb 9.4 gm/dl (10.1-14.3) L 08/25/17 17:06 Hct 29.0 % (30.3-42.9) L D 08/25/17 17:06 MCV 80 fl (79-97) 08/25/17 17:06 MCH 26 pg (28-32) L 08/25/17 17:06 MCHC 32 % (30-34) 08/25/17 17:06 RDW 15.0 % (13.2-15.2) 08/25/17 17:06 Plt Count 763 K/mm3 (140-440) H 08/25/17 17:06 Lymph % (Auto) 8.0 % (13.4-35.0) L 08/25/17 17:06 [place] % (Auto) 3.9 % (0.0-7.3) 08/25/17 17:06 Eos % (Auto) 0.3 % (0.0-4.3) 08/25/17 17:06 Baso % (Auto) 0.1 % (0.0-1.8) 08/25/17 17:06 Lymph # 1.2 K/mm3 (1.2-5.4) 08/25/17 17:06 [place] # 0.6 K/mm3 (0.0-0.8) 08/25/17 17:06 Eos # 0.1 K/mm3 (0.0-0.4) 08/25/17 17:06 Baso # 0.0 K/mm3 (0.0-0.1) 08/25/17 17:06 Add Manual Diff Complete 08/23/17 17:34 Total Counted 100 08/23/17 17:34 Seg Neutrophils % 87.7 % (40.0-70.0) H 08/25/17 17:06 Seg Neuts % (Manual) 92.0 % (40.0-70.0) H 1818 17:34 Band Neutrophils % 3.0 % 08/23/17 17:34 Lymphocytes % (Manual) 4.0 % (13.4-35.0) L 08/23/17 17:34 Reactive Lymphs % (Man) 0 % 08/23/17 17:34 Monocytes % (Manual) 1.0 % (0.0-7.3) 08/23/17 17:34 Eosinophils % (Manual) 0 % (0.0-4.3) 08/23/17 17:34 Basophils % (Manual) 0 % (0.0-1.8) 08/23/17 17:34 Metamyelocytes % 0 % 08/23/17 17:34 Myelocytes % 0 % 08/23/17 17:34 Promyelocytes % 0 % 08/23/17 17:34 Blast Cells % 0 % 08/23/17 17:34 Nucleated RBC % Not Reportable 08/23/17 17:34 Seg Neutrophils # 13.1 K/mm3 (1.8-7.7) H 08/25/17 17:06 Seg Neutrophils # Man 16.3 K/mm3 (1.8-7.7) H 08/23/17 17:34 Band Neutrophils # 0.5 K/mm3 08/23/17 17:34 Lymphocytes # (Manual) 0.7 K/mm3 (1.2-5.4) L 08/23/17 17:34 Abs React Lymphs (Man) 0.0 K/mm3 08/23/17 17:34 Monocytes # (Manual) 0.2 K/mm3 (0.0-0.8) 08/23/17 17:34 Eosinophils # (Manual) 0.0 K/mm3 (0.0-0.4) 08/23/17 17:34 Basophils # (Manual) 0.0 K/mm3 (0.0-0.1) 08/23/17 17:34 Metamyelocytes # 0.0 K/mm3 08/23/17 17:34 Myelocytes # 0.0 K/mm3 05/18/18 17:34 Promyelocytes # 0.0 K/mm3 08/23/17 17:34 Blast Cells # 0.0 K/mm3 08/23/17 17:34 WBC Morphology Not Reportable 08/23/17 17:34 Hypersegmented Neuts Not Reportable 08/23/17 17:34 Hyposegmented Neuts Not Reportable 08/23/17 17:34 Hypogranular Neuts Not Reportable 08/23/17 17:34 Smudge Cells Not Reportable 08/23/17 17:34 Toxic Granulation Not Reportable 08/23/17 17:34 Toxic Vacuolation Not Reportable 08/23/17 17:34 Dohle Bodies Not Reportable 08/23/17 17:34 Pelger-Huet Anomaly Not Reportable 08/23/17 17:34 Abdulkadir Rods Not Reportable 08/23/17 17:34 Platelet Estimate Appears increased 08/23/17 17:34 Clumped Platelets Not Reportable 08/23/17 17:34 Plt Clumps, EDTA Not Reportable 08/23/17 17:34 Large Platelets Not Reportable 08/23/17 17:34 Giant Platelets Not Reportable 08/23/17 17:34 Platelet Satelliting Not Reportable 08/23/17 17:34 Plt Morphology Comment Not Reportable 08/23/17 17:34 RBC Morphology Not Reportable 08/23/17 17:34 Dimorphic RBCs Not Reportable 08/23/17 17:34 Polychromasia Not Reportable 08/23/17 17:34 Hypochromasia 2+ 08/23/17 17:34 Poikilocytosis Not Reportable 08/23/17 17:34 Anisocytosis 1+ 08/23/17 17:34 Microcytosis Not Reportable 08/23/17 17:34 Macrocytosis Not Reportable 08/23/17 17:34 Spherocytes Not Reportable 08/23/17 17:34 Pappenheimer Bodies Not Reportable 08/23/17 17:34 Sickle Cells Not Reportable 08/23/17 17:34 Target Cells 1+ 08/23/17 17:34 Tear Drop Cells Not Reportable 08/23/17 17:34 Ovalocytes 1+ 08/23/17 17:34 Helmet Cells Not Reportable 08/23/17 17:34 Ordonez-Fin[place] Bodies Not Reportable 08/23/17 17:34 [place] Rings Not Reportable 08/23/17 17:34 [place] Cells Not Reportable 08/23/17 17:34 Bite Cells Not Reportable 08/23/17 17:34 Crenated Cell Not Reportable 08/23/17 17:34 Elliptocytes Not Reportable 08/23/17 17:34 Acanthocytes (Spur) Not Reportable 08/23/17 17:34 Rouleaux Not Reportable 08/23/17 17:34 Hemoglobin C Crystals Not Reportable 08/23/17 17:34 Schistocytes Not Reportable 08/23/17 17:34 Malaria parasites Not Reportable 08/23/17 17:34 Dewayne Bodies Not Reportable 08/23/17 17:34 Hem Pathologist Commnt No 08/23/17 17:34 PT 17.8 Sec. (12.2-14.9) H 08/21/17 03:32 INR 1.38 (0.87-1.13) H 08/21/17 03:32 VBG pH 7.480 (7.320-7.420) H 08/21/17 03:17 Sodium 144 mmol/L (137-145) 08/24/17 05:20 Potassium 3.7 mmol/L (3.6-5.0) 08/24/17 05:20 Chloride 106.7 mmol/L (98-107) 08/24/17 05:20 Carbon Dioxide 23 mmol/L (22-30) 08/24/17 05:20 Anion Gap 18 mmol/L 08/24/17 05:20 BUN 6 mg/dL (7-17) L 08/24/17 05:20 Creatinine 0.4 mg/dL (0.7-1.2) L 08/24/17 05:20 Estimated GFR > 60 ml/min 08/24/17 05:20 BUN/Creatinine Ratio 15 % 08/24/17 05:20 Glucose 72 mg/dL (65-100) 08/24/17 05:20 POC Glucose 207 (70-105) H 08/26/17 12:12 Hemoglobin A1c 5.8 % (4-6) 08/21/17 03:17 Lactic Acid 0.70 mmol/L (0.7-2.0) 08/22/17 00:22 Calcium 7.1 mg/dL (8.4-10.2) L 08/24/17 05:20 Phosphorus 2.60 mg/dL (2.5-4.5) 08/24/17 05:20 Magnesium 2.00 mg/dL (1.7-2.3) 08/24/17 05:20 Iron 11 ug/dL (37-170) L 08/22/17 14:30 Total Bilirubin 0.40 mg/dL (0.1-1.2) 08/21/17 03:17 AST 9 units/L (5-40) 08/21/17 03:17 ALT 5 units/L (7-56) L 08/21/17 03:17 Alkaline Phosphatase 90 units/L (35-129) 08/21/17 03:17 NT-Pro-B Natriuret Pep 165.7 pg/mL (0-900) 08/21/17 03:17 Total Protein 5.2 g/dL (6.3-8.2) L 08/21/17 03:17 Albumin 2.3 g/dL (3.9-5) L 08/21/17 03:17 Albumin/Globulin Ratio 0.8 % 08/21/17 03:17 Vitamin B12 1647 pg/mL (211-911) H 08/22/17 14:30 Folate 7.04 ng/mL (7.3-26.0) L 08/22/17 14:30 TSH 1.910 mlU/mL (0.270-4.200) 08/24/17 13:41 Urine Color Beth (Yellow) 08/21/17 06:54 Urine Turbidity Clear (Clear) 08/21/17 06:54 Urine pH 5.0 (5.0-7.0) 08/21/17 06:54 Ur Specific [place] 1.021 (1.003-1.030) 08/21/17 06:54 Urine Protein 100 mg/dl mg/dL (Negative) 08/21/17 06:54 Urine Glucose (UA) Neg mg/dL (Negative) 08/21/17 06:54 Urine Ketones Neg mg/dL (Negative) 08/21/17 06:54 Urine Blood Neg (Negative) 08/21/17 06:54 Urine Nitrite Neg (Negative) 08/21/17 06:54 Urine Bilirubin Neg (Negative) 08/21/17 06:54 Urine Urobilinogen 4.0 mg/dL (<2.0) 08/21/17 06:54 Ur Leukocyte Esterase Neg (Negative) 08/21/17 06:54 Urine WBC (Auto) 9.0 /HPF (0.0-6.0) H 08/21/17 06:54 Urine RBC (Auto) 4.0 /HPF (0.0-6.0) 08/21/17 06:54 U Epithel Cells (Auto) 11.0 /HPF (0-13.0) 08/21/17 06:54 Urine Bacteria (Auto) 4+ /HPF (Negative) 08/21/17 06:54 Urine WBC Clumps 2+ /HPF 08/21/17 06:54 Urine Mucus 3+ /HPF 08/21/17 06:54 Blood Type B POSITIVE 08/24/17 10:43 Antibody Screen Negative 08/24/17 10:43 Crossmatch See Detail 08/24/17 10:43
[2017-08-26] MEDS: RisperDAL PO SCH (22:43)
[2017-08-26] MEDS: DESYREL PO SCH (22:44)
[2017-08-26] MEDS: DepaKENE Liq PO SCH (22:44)
[2017-08-27] MEDS: ZOSYN/NS 4.5GM/100ML 4.5 GM/100 ML VIAL IV SCH ×3 (05:58→21:33)
[2017-08-27] MEDS: DAKIN'S FULL STRENGTH TP SCH ×2 (08:05→21:07)
[2017-08-27] MEDS: MORPHINE IV PRN (10:02)
[2017-08-27] MEDS: ZESTRIL PO SCH (10:04)
[2017-08-27] MEDS: ARICEPT PO SCH (10:04)
[2017-08-27] MEDS: SODIUM CHLORIDE FLUSH SYRINGE 10 ML IV SCH ×2 (10:05→21:34)
[2017-08-27] MEDS: HEPARIN SUB-Q SCH ×2 (10:05→21:36)
[2017-08-27] MEDS: SANTYL TP SCH (10:06)
--- NOTE | 2017-08-27 13:35 | Discharge Summary ---
Providers - Providers Date of Admission: 08/21/17 09:28 Date of discharge: 08/27/17 Attending physician: SETH DAVID 08/21/17 Consult to Case Management [CONS] Routine Services Needed at Discharge: [facility] Notified:: porter sample case 08/21/17 09:55 Consult to Wound/ET Nurse [CONS] Routine Reason For Exam: wound eval 08/21/17 09:57 Consult to Dietitian/Nutrition [CONS] Routine Physician Instructions: Assess nutrtn needs, initiate, modify, manage TF Reason For Exam: Reason for Consult: Write/Manage Tube Feeding Reason for Consult: Write/Manage Tube Feeding 08/21/17 13:09 Occupational Therapy Evaluate and Treat [CONS] Routine Comment: Reason For Exam: Pt needs help with ADLs Physical Therapy Evaluation and Treat [CONS] Routine Comment: Reason For Exam: Pt is immobile Speech Therapy Evaluation and Treat [CONS] Routine Reason For Exam: Pt has difficulty swalloing 08/21/17 16:36 Consult to Physician [CONS] Routine Comment: Consulting Provider: STEWART FERRARO Physician Instructions: PATIENT SEEN TODAY Reason For Exam: NECROTIC PRESSURE ULCERS 08/24/17 10:04 Consult to Dietitian/Nutrition [CONS] Stat Physician Instructions: Reason For Exam: PEG TUBE NEED TUBE FEEDING Reason for Consult: Write/Manage Tube Feeding Primary care physician: [employer] Hospitalization Condition: Critical Disposition: DC/[place]-03 SNF [facility] Time spent for discharge: 35 min Core Measure Documentation - Palliative Care Palliative Care/ Comfort Measures: Not Applicable - Core Measures Any of the following diagnoses?: none Exam - Constitutional Vitals: Temp Pulse Resp BP Pulse Ox 99.4 F 80 12 149/76 99 08/27/17 07:43 08/27/17 10:04 08/27/17 07:43 08/27/17 10:04 08/27/17 07:54 General appearance: Present: no acute distress, cachectic, disheveled - EENT Eyes: Present: PERRL, EOM intact - Neck Neck: Present: supple, normal ROM - Respiratory Respiratory effort: normal Respiratory: bilateral: diminished, negative: rales, rhonchi, wheezing - Cardiovascular Rhythm: regular Heart Sounds: Present: S1 & S2 - Extremities Extremities: abnormal Extremity abnormal: other - Abdominal General gastrointestinal: Present: soft, non-tender, non-distended, other (PEG in place) Plan Activity: advance as tolerated, fall precautions Diet: other (PEG in place) Wound: per wound nurse instructions Additional Instructions: Wound care follow-up weekly Follow up with: PRIMARY CARE, [Primary Care Provider] - 3-5 Days STEWART FERRARO MD [Staff Physician] - 7 Days Prescriptions: Clindamycin [Clindamycin CAP] 300 mg PO Q6H #40 capsule
--- NOTE | 2017-08-27 14:16 | Progress Note ---
Assessment and Plan - Patient Problems (1) Decubitus ulcer of heel, bilateral, unstageable Current Visit: Yes Status: Acute Plan to address problem: 1) Pt is ready for discharge. Her daughter texted me asking if the pt could be transported by car to a [place] in [place]. I told her I did not think this was a good idea. She related that she is under pressure to find a facility and that she did not want her mother discharged back [place] the [place]. I simply told her that I understood. 2) F/u in Wound Clinic 3) Continue PEG feedings 4) Continue off loading 5) Continue wound vac (2) Unstageable pressure ulcer of sacral region Current Visit: Yes Status: Acute (3) Severe protein-calorie malnutrition Current Visit: Yes Status: Acute (4) UTI (urinary tract infection) Current Visit: Yes Status: Acute Qualifiers: Urinary tract infection type: acute cystitis Subjective Date of service: 08/27/17 Patient Reports: Positive: no new complaints Objective Vital Signs - 12hr 08/27/17 08/27/17 08/27/17 03:49 07:43 07:54 Temperature 98.4 F 99.4 F Pulse Rate 77 80 Respiratory 18 12 Rate Blood Pressure 147/61 149/76 O2 Sat by Pulse 100 99 99 Oximetry 08/27/17 10:04 Temperature Pulse Rate 80 Respiratory Rate Blood Pressure 149/76 O2 Sat by Pulse Oximetry - Abdomen PM_[id number]_[id number] 4, PM_46_[id number] 6, PM_46_[id number] 8 Hernia: none - Integumentary other (Bilateral heel and sacral wounds were not re-examined.) - Labs 08/25/17 17:06 08/24/17 05:20
[2017-08-27] MEDS: VANCOMYCIN 750 MG in NACL 0.9% 250ML 250 ML IV SCH (17:57)
--- NOTE | 2017-08-27 19:19 | Progress Note ---
Assessment and Plan Assessment and plan: --Anemia; hemoglobin 6.7-9.4, received 1 unit PRBC yesterday Closely monitor H&H and transfuse additional as needed, --Sacral decubitus ulcers; stage III Status post debridement, continue supportive care Wound care following --Bilateral heel decubiti; stage III -IV Status post debridement, continue wound and supportive care, antibiotics --Severe protein calorie malnutrition; Poor oral intake due to dysphagia --Dysphagia;Barium swallow today, if abnormal s/p PEG placement , continue tube feeding --Metabolic encephalopathy; multifactorial Secondary to sepsis, advanced age, dementia --Sepsis; secondary to UTI present on admission Continue current antibiotics follow cultures --Sepsis secondary to multiple decubitus ulcers [different stages]; present on admission Status post debridement, Continue current antibiotic and wound care --Leukocytosis; secondary to sepsis, closely monitor --Hypokalemia; replace per protocol, monitor levels --Hypertension; moderate control, continue current antihypertensives and when necessary medications --DVT prophylaxis; Lovenox --DNR status --DC planning; DC back to SNF when medically stable Plan of care discussed with the daughter over the phone And son at the bedside Discussed the case with wound care surgeon Dr. Blue Mixon to discharge the patient admitted to LTAC/SNF Follow wound care once a week Plan bilateral AKA after 1 month Hold discharge Continue current management History Interval history: Patient seen and examined medical records reviewed Patient was cleared by surgery Dr. Mcarthur for discharge and follow-up with wound clinic in 1 week And consider amputation in 1 month Discharge orders were given, however patient appealed the discharge, pending decision from insurance I informed case management who is following Patient is noncommunicative, not in acute distress Vital signs reviewed Hospitalist Physical - Constitutional Vitals: Temp Pulse Resp BP Pulse Ox 99.3 F 86 16 146/68 99 08/27/17 13:59 08/27/17 13:59 08/27/17 13:59 08/27/17 13:59 08/27/17 13:59 General appearance: Present: no acute distress, cachectic, disheveled - EENT Eyes: Present: PERRL, EOM intact - Neck Neck: Present: supple, normal ROM - Respiratory Respiratory effort: normal Respiratory: bilateral: diminished, negative: rales, rhonchi, wheezing - Cardiovascular Rhythm: regular Heart Sounds: Present: S1 & S2 - Extremities Extremities: abnormal (dressing in bilateral heels/stage IV decubitus ulcer status post debridement) - Abdominal General gastrointestinal: soft, non-tender, non-distended, normal bowel sounds, other (PEG in place) - Integumentary Integumentary: Present: clear, warm - Psychiatric Psychiatric: other (minimally communicative) - Neurologic Neurologic: other (minimally communicative) Results - Labs CBC & Chem 7: 08/25/17 17:06 08/24/17 05:20 Labs: Laboratory Last Values WBC 15.0 K/mm3 (4.5-11.0) H 08/25/17 17:06 RBC 3.64 M/mm3 (3.65-5.03) L 08/25/17 17:06 Hgb 9.4 gm/dl (10.1-14.3) L 08/25/17 17:06 Hct 29.0 % (30.3-42.9) L D 08/25/17 17:06 MCV 80 fl (79-97) 08/25/17 17:06 MCH 26 pg (28-32) L 08/25/17 17:06 MCHC 32 % (30-34) 08/25/17 17:06 RDW 15.0 % (13.2-15.2) 08/25/17 17:06 Plt Count 763 K/mm3 (140-440) H 08/25/17 17:06 Lymph % (Auto) 8.0 % (13.4-35.0) L 08/25/17 17:06 [place] % (Auto) 3.9 % (0.0-7.3) 08/25/17 17:06 Eos % (Auto) 0.3 % (0.0-4.3) 08/25/17 17:06 Baso % (Auto) 0.1 % (0.0-1.8) 08/25/17 17:06 Lymph # 1.2 K/mm3 (1.2-5.4) 08/25/17 17:06 [place] # 0.6 K/mm3 (0.0-0.8) 08/25/17 17:06 Eos # 0.1 K/mm3 (0.0-0.4) 08/25/17 17:06 Baso # 0.0 K/mm3 (0.0-0.1) 08/25/17 17:06 Add Manual Diff Complete 08/23/17 17:34 Total Counted 100 08/23/17 17:34 Seg Neutrophils % 87.7 % (40.0-70.0) H 08/25/17 17:06 Seg Neuts % (Manual) 92.0 % (40.0-70.0) H 08/23/17 17:34 Band Neutrophils % 3.0 % 08/23/17 17:34 Lymphocytes % (Manual) 4.0 % (13.4-35.0) L 08/23/17 17:34 Reactive Lymphs % (Man) 0 % 08/23/17 17:34 Monocytes % (Manual) 1.0 % (0.0-7.3) 08/23/17 17:34 Eosinophils % (Manual) 0 % (0.0-4.3) 08/23/17 17:34 Basophils % (Manual) 0 % (0.0-1.8) 08/23/17 17:34 Metamyelocytes % 0 % 08/23/17 17:34 Myelocytes % 0 % 08/23/17 17:34 Promyelocytes % 0 % 08/23/17 17:34 Blast Cells % 0 % 08/23/17 17:34 Nucleated RBC % Not Reportable 08/23/17 17:34 Seg Neutrophils # 13.1 K/mm3 (1.8-7.7) H 08/25/17 17:06 Seg Neutrophils # Man 16.3 K/mm3 (1.8-7.7) H 08/23/17 17:34 Band Neutrophils # 0.5 K/mm3 08/23/17 17:34 Lymphocytes # (Manual) 0.7 K/mm3 (1.2-5.4) L 08/23/17 17:34 Abs React Lymphs (Man) 0.0 K/mm3 08/23/17 17:34 Monocytes # (Manual) 0.2 K/mm3 (0.0-0.8) 08/23/17 17:34 Eosinophils # (Manual) 0.0 K/mm3 (0.0-0.4) 08/23/17 17:34 Basophils # (Manual) 0.0 K/mm3 (0.0-0.1) 08/23/17 17:34 Metamyelocytes # 0.0 K/mm3 08/23/17 17:34 Myelocytes # 0.0 K/mm3 08/23/17 17:34 Promyelocytes # 0.0 K/mm3 08/23/17 17:34 Blast Cells # 0.0 K/mm3 08/23/17 17:34 WBC Morphology Not Reportable 08/23/17 17:34 Hypersegmented Neuts Not Reportable 08/23/17 17:34 Hyposegmented Neuts Not Reportable 08/23/17 17:34 Hypogranular Neuts Not Reportable 08/23/17 17:34 Smudge Cells Not Reportable 08/23/17 17:34 Toxic Granulation Not Reportable 08/23/17 17:34 Toxic Vacuolation Not Reportable 08/23/17 17:34 Dohle Bodies Not Reportable 08/23/17 17:34 Pelger-Huet Anomaly Not Reportable 08/23/17 17:34 Abdulkadir Rods Not Reportable 08/23/17 17:34 Platelet Estimate Appears increased 08/23/17 17:34 Clumped Platelets Not Reportable 08/23/17 17:34 Plt Clumps, EDTA Not Reportable 08/23/17 17:34 Large Platelets Not Reportable 08/23/17 17:34 Giant Platelets Not Reportable 08/23/17 17:34 Platelet Satelliting Not Reportable 08/23/17 17:34 Plt Morphology Comment Not Reportable 08/23/17 17:34 RBC Morphology Not Reportable 08/23/17 17:34 Dimorphic RBCs Not Reportable 08/23/17 17:34 Polychromasia Not Reportable 08/23/17 17:34 Hypochromasia 2+ 08/23/17 17:34 Poikilocytosis Not Reportable 08/23/17 17:34 Anisocytosis 1+ 08/23/17 17:34 Microcytosis Not Reportable 08/23/17 17:34 Macrocytosis Not Reportable 08/23/17 17:34 Spherocytes Not Reportable 08/23/17 17:34 Pappenheimer Bodies Not Reportable 08/23/17 17:34 Sickle Cells Not Reportable 08/23/17 17:34 Target Cells 1+ 08/23/17 17:34 Tear Drop Cells Not Reportable 08/23/17 17:34 Ovalocytes 1+ 08/23/17 17:34 Helmet Cells Not Reportable 08/23/17 17:34 Ordonez-[place] Bodies Not Reportable 08/23/17 17:34 [place] Rings Not Reportable 08/23/17 17:34 [place] Cells Not Reportable 08/23/17 17:34 Bite Cells Not Reportable 08/23/17 17:34 Crenated Cell Not Reportable 08/23/17 17:34 Elliptocytes Not Reportable 08/23/17 17:34 Acanthocytes (Spur) Not Reportable 08/23/17 17:34 Rouleaux Not Reportable 08/23/17 17:34 Hemoglobin C Crystals Not Reportable 08/23/17 17:34 Schistocytes Not Reportable 08/23/17 17:34 Malaria parasites Not Reportable 08/23/17 17:34 Dewayne Bodies Not Reportable 08/23/17 17:34 Hem Pathologist Commnt No 08/23/17 17:34 PT 17.8 Sec. (12.2-14.9) H 08/21/17 03:32 INR 1.38 (0.87-1.13) H 08/21/17 03:32 VBG pH 7.480 (7.320-7.420) H 08/21/17 03:17 Sodium 144 mmol/L (137-145) 08/24/17 05:20 Potassium 3.7 mmol/L (3.6-5.0) 08/24/17 05:20 Chloride 106.7 mmol/L (98-107) 08/24/17 05:20 Carbon Dioxide 23 mmol/L (22-30) 08/24/17 05:20 Anion Gap 18 mmol/L 08/24/17 05:20 BUN 6 mg/dL (7-17) L 08/24/17 05:20 Creatinine 0.4 mg/dL (0.7-1.2) L 08/24/17 05:20 Estimated GFR > 60 ml/min 08/24/17 05:20 BUN/Creatinine Ratio 15 % 08/24/17 05:20 Glucose 72 mg/dL (65-100) 08/24/17 05:20 POC Glucose 134 (70-105) H 08/27/17 18:27 Hemoglobin A1c 5.8 % (4-6) 08/21/17 03:17 Lactic Acid 0.70 mmol/L (0.7-2.0) 08/22/17 00:22 Calcium 7.1 mg/dL (8.4-10.2) L 08/24/17 05:20 Phosphorus 2.60 mg/dL (2.5-4.5) 08/24/17 05:20 Magnesium 2.00 mg/dL (1.7-2.3) 08/24/17 05:20 Iron 11 ug/dL (37-170) L 08/22/17 14:30 Total Bilirubin 0.40 mg/dL (0.1-1.2) 08/21/17 03:17 AST 9 units/L (5-40) 08/21/17 03:17 ALT 5 units/L (7-56) L 08/21/17 03:17 Alkaline Phosphatase 90 units/L (35-129) 08/21/17 03:17 NT-Pro-B Natriuret Pep 165.7 pg/mL (0-900) 08/21/17 03:17 Total Protein 5.2 g/dL (6.3-8.2) L 08/21/17 03:17 Albumin 2.3 g/dL (3.9-5) L 08/21/17 03:17 Albumin/Globulin Ratio 0.8 % 08/21/17 03:17 Vitamin B12 1647 pg/mL (211-911) H 08/22/17 14:30 Folate 7.04 ng/mL (7.3-26.0) L 08/22/17 14:30 TSH 1.910 mlU/mL (0.270-4.200) 08/24/17 13:41 Urine Color Beth (Yellow) 08/21/17 06:54 Urine Turbidity Clear (Clear) 08/21/17 06:54 Urine pH 5.0 (5.0-7.0) 08/21/17 06:54 Ur Specific [place] 1.021 (1.003-1.030) 08/21/17 06:54 Urine Protein 100 mg/dl mg/dL (Negative) 08/21/17 06:54 Urine Glucose (UA) Neg mg/dL (Negative) 08/21/17 06:54 Urine Ketones Neg mg/dL (Negative) 08/21/17 06:54 Urine Blood Neg (Negative) 08/21/17 06:54 Urine Nitrite Neg (Negative) 08/21/17 06:54 Urine Bilirubin Neg (Negative) 08/21/17 06:54 Urine Urobilinogen 4.0 mg/dL (<2.0) 08/21/17 06:54 Ur Leukocyte Esterase Neg (Negative) 08/21/17 06:54 Urine WBC (Auto) 9.0 /HPF (0.0-6.0) H 08/21/17 06:54 Urine RBC (Auto) 4.0 /HPF (0.0-6.0) 08/21/17 06:54 U Epithel Cells (Auto) 11.0 /HPF (0-13.0) 08/21/17 06:54 Urine Bacteria (Auto) 4+ /HPF (Negative) 08/21/17 06:54 Urine WBC Clumps 2+ /HPF 08/21/17 06:54 Urine Mucus 3+ /HPF 08/21/17 06:54 Blood Type B POSITIVE 08/24/17 10:43 Antibody Screen Negative 08/24/17 10:43 Crossmatch See Detail 08/24/17 10:43
[2017-08-27] MEDS: RisperDAL PO SCH (21:34)
[2017-08-27] MEDS: DepaKENE Liq PO SCH (21:35)
[2017-08-27] MEDS: DESYREL PO SCH (21:35)
[2017-08-28] MEDS: ZOSYN/NS 4.5GM/100ML 4.5 GM/100 ML VIAL IV SCH (06:26)
[2017-08-28] MEDS: TYLENOL PO PRN ×3 (06:26→22:58)
[2017-08-28] MEDS: HEPARIN SUB-Q SCH ×2 (12:15→22:56)
[2017-08-28] MEDS: CLEOCIN PO SCH ×3 (13:10→23:00)
[2017-08-28] MEDS: ZESTRIL PO SCH (16:10)
[2017-08-28] MEDS: ARICEPT PO SCH (16:10)
--- NOTE | 2017-08-28 16:29 | Progress Note ---
Assessment and Plan Assessment and plan: --Sacral decubitus ulcers; stage III Status post debridement,Wound care, wound VAC,supportive care --Bilateral heel decubiti; stage III -IV Status post debridement, continue antibiotics wound and supportive care, --Anemia; received 1 unit PRBC Hb 9.4 Closely monitor H&H and transfuse additional as needed, --Severe protein calorie malnutrition; Poor oral intake,due to dysphagia Nutrition supplements and supportive care --Dysphagia; s/p PEG placement,continue tube feeding --Metabolic encephalopathy; multifactorial, supportive care --Sepsis; secondary to UTI present on admission Continue current antibiotics follow cultures --Sepsis secondary to multiple decubitus ulcers [different stages]; present on admission Status post debridement, Continue antibiotic and wound care --Leukocytosis; secondary to sepsis, closely monitor --Hypokalemia; replace per protocol, monitor levels --Hypertension; moderate control, continue current antihypertensives and when necessary medications --DVT prophylaxis; Lovenox --DNR status --DC planning; DC back to SNF when medically stable Plan of care discussed with the daughter and her notes Cleared by surgeon Dr. Mcarthur for discharge and follow-up at wound clinic weekly Plans bilateral AKA in 1 month Continue current management Medically stable for discharge to SNF, discharge guarded given Patient's daughter appears to discharge Follow-up with case management for disposition History Interval history: Patient seen and examined medical records reviewed Patient is noncommunicative. Comfortable. No acute distress No new events reported Vital signs reviewed Medically stable for discharge, patient's daughters. The discharge Hospitalist Physical - Constitutional Vitals: Temp Pulse Resp BP Pulse Ox 97.6 F 67 20 135/58 100 08/28/17 13:20 08/28/17 13:20 08/28/17 13:20 08/28/17 13:20 08/28/17 13:20 General appearance: Present: no acute distress, cachectic, disheveled - EENT Eyes: Present: PERRL, EOM intact - Neck Neck: Present: supple, normal ROM - Respiratory Respiratory effort: normal Respiratory: bilateral: diminished, rhonchi, negative: rales, wheezing - Cardiovascular Rhythm: regular Heart Sounds: Present: S1 & S2 - Extremities Extremities: no ischemia, No edema - Abdominal General gastrointestinal: soft, non-tender, non-distended, normal bowel sounds - Integumentary Integumentary: Present: clear, warm - Psychiatric Psychiatric: appropriate mood/affect, cooperative - Neurologic Neurologic: CNII-XII intact, moves all extremities Results - Labs CBC & Chem 7: 08/25/17 17:06 08/24/17 05:20 Labs: Laboratory Last Values WBC 15.0 K/mm3 (4.5-11.0) H 08/25/17 17:06 RBC 3.64 M/mm3 (3.65-5.03) L 08/25/17 17:06 Hgb 9.4 gm/dl (10.1-14.3) L 08/25/17 17:06 Hct 29.0 % (30.3-42.9) L D 08/25/17 17:06 MCV 80 fl (79-97) 08/25/17 17:06 MCH 26 pg (28-32) L 08/25/17 17:06 MCHC 32 % (30-34) 08/25/17 17:06 RDW 15.0 % (13.2-15.2) 08/25/17 17:06 Plt Count 763 K/mm3 (140-440) H 08/25/17 17:06 Lymph % (Auto) 8.0 % (13.4-35.0) L 08/25/17 17:06 [place] % (Auto) 3.9 % (0.0-7.3) 08/25/17 17:06 Eos % (Auto) 0.3 % (0.0-4.3) 08/25/17 17:06 Baso % (Auto) 0.1 % (0.0-1.8) 08/25/17 17:06 Lymph # 1.2 K/mm3 (1.2-5.4) 08/25/17 17:06 [place] # 0.6 K/mm3 (0.0-0.8) 08/25/17 17:06 Eos # 0.1 K/mm3 (0.0-0.4) 08/25/17 17:06 Baso # 0.0 K/mm3 (0.0-0.1) 08/25/17 17:06 Add Manual Diff Complete 08/23/17 17:34 Total Counted 100 08/23/17 17:34 Seg Neutrophils % 87.7 % (40.0-70.0) H 08/25/17 17:06 Seg Neuts % (Manual) 92.0 % (40.0-70.0) H 08/23/17 17:34 Band Neutrophils % 3.0 % 08/23/17 17:34 Lymphocytes % (Manual) 4.0 % (13.4-35.0) L 08/23/17 17:34 Reactive Lymphs % (Man) 0 % 08/23/17 17:34 Monocytes % (Manual) 1.0 % (0.0-7.3) 08/23/17 17:34 Eosinophils % (Manual) 0 % (0.0-4.3) 08/23/17 17:34 Basophils % (Manual) 0 % (0.0-1.8) 08/23/17 17:34 Metamyelocytes % 0 % 08/23/17 17:34 Myelocytes % 0 % 08/23/17 17:34 Promyelocytes % 0 % 08/23/17 17:34 Blast Cells % 0 % 08/23/17 17:34 Nucleated RBC % Not Reportable 08/23/17 17:34 Seg Neutrophils # 13.1 K/mm3 (1.8-7.7) H 08/25/17 17:06 Seg Neutrophils # Man 16.3 K/mm3 (1.8-7.7) H 08/23/17 17:34 Band Neutrophils # 0.5 K/mm3 08/23/17 17:34 Lymphocytes # (Manual) 0.7 K/mm3 (1.2-5.4) L 08/23/17 17:34 Abs React Lymphs (Man) 0.0 K/mm3 08/23/17 17:34 Monocytes # (Manual) 0.2 K/mm3 (0.0-0.8) 08/23/17 17:34 Eosinophils # (Manual) 0.0 K/mm3 (0.0-0.4) 08/23/17 17:34 Basophils # (Manual) 0.0 K/mm3 (0.0-0.1) 08/23/17 17:34 Metamyelocytes # 0.0 K/mm3 08/23/17 17:34 Myelocytes # 0.0 K/mm3 08/23/17 17:34 Promyelocytes # 0.0 K/mm3 08/23/17 17:34 Blast Cells # 0.0 K/mm3 08/23/17 17:34 WBC Morphology Not Reportable 08/23/17 17:34 Hypersegmented Neuts Not Reportable 08/23/17 17:34 Hyposegmented Neuts Not Reportable 08/23/17 17:34 Hypogranular Neuts Not Reportable 08/23/17 17:34 Smudge Cells Not Reportable 08/23/17 17:34 Toxic Granulation Not Reportable 08/23/17 17:34 Toxic Vacuolation Not Reportable 08/23/17 17:34 Dohle Bodies Not Reportable 08/23/17 17:34 Pelger-Huet Anomaly Not Reportable 08/23/17 17:34 Abdulkadir Rods Not Reportable 08/23/17 17:34 Platelet Estimate Appears increased 08/23/17 17:34 Clumped Platelets Not Reportable 08/23/17 17:34 Plt Clumps, EDTA Not Reportable 08/23/17 17:34 Large Platelets Not Reportable 08/23/17 17:34 Giant Platelets Not Reportable 08/23/17 17:34 Platelet Satelliting Not Reportable 08/23/17 17:34 Plt Morphology Comment Not Reportable 08/23/17 17:34 RBC Morphology Not Reportable 08/23/17 17:34 Dimorphic RBCs Not Reportable 08/23/17 17:34 Polychromasia Not Reportable 08/23/17 17:34 Hypochromasia 2+ 08/23/17 17:34 Poikilocytosis Not Reportable 08/23/17 17:34 Anisocytosis 1+ 08/23/17 17:34 Microcytosis Not Reportable 08/23/17 17:34 Macrocytosis Not Reportable 08/23/17 17:34 Spherocytes Not Reportable 08/23/17 17:34 Pappenheimer Bodies Not Reportable 08/23/17 17:34 Sickle Cells Not Reportable 08/23/17 17:34 Target Cells 1+ 08/23/17 17:34 Tear Drop Cells Not Reportable 08/23/17 17:34 Ovalocytes 1+ 08/23/17 17:34 Helmet Cells Not Reportable 08/23/17 17:34 [place] Bodies Not Reportable 08/23/17 17:34 [place] Rings Not Reportable 08/23/17 17:34 [place] Cells Not Reportable 08/23/17 17:34 Bite Cells Not Reportable 08/23/17 17:34 Crenated Cell Not Reportable 08/23/17 17:34 Elliptocytes Not Reportable 08/23/17 17:34 Acanthocytes (Spur) Not Reportable 08/23/17 17:34 Rouleaux Not Reportable 08/23/17 17:34 Hemoglobin C Crystals Not Reportable 08/23/17 17:34 Schistocytes Not Reportable 08/23/17 17:34 Malaria parasites Not Reportable 08/23/17 17:34 [place] Bodies Not Reportable 08/23/17 17:34 Hem Pathologist Commnt No 08/23/17 17:34 PT 17.8 Sec. (12.2-14.9) H 08/21/17 03:32 INR 1.38 (0.87-1.13) H 08/21/17 03:32 VBG pH 7.480 (7.320-7.420) H 08/21/17 03:17 Sodium 144 mmol/L (137-145) 08/24/17 05:20 Potassium 3.7 mmol/L (3.6-5.0) 08/24/17 05:20 Chloride 106.7 mmol/L (98-107) 08/24/17 05:20 Carbon Dioxide 23 mmol/L (22-30) 08/24/17 05:20 Anion Gap 18 mmol/L 08/24/17 05:20 BUN 6 mg/dL (7-17) L 08/24/17 05:20 Creatinine 0.4 mg/dL (0.7-1.2) L 08/24/17 05:20 Estimated GFR > 60 ml/min 08/24/17 05:20 BUN/Creatinine Ratio 15 % 08/24/17 05:20 Glucose 72 mg/dL (65-100) 08/24/17 05:20 POC Glucose 191 (70-105) H 08/28/17 12:18 Hemoglobin A1c 5.8 % (4-6) 08/21/17 03:17 Lactic Acid 0.70 mmol/L (0.7-2.0) 08/22/17 00:22 Calcium 7.1 mg/dL (8.4-10.2) L 08/24/17 05:20 Phosphorus 2.60 mg/dL (2.5-4.5) 08/24/17 05:20 Magnesium 2.00 mg/dL (1.7-2.3) 08/24/17 05:20 Iron 11 ug/dL (37-170) L 08/22/17 14:30 Total Bilirubin 0.40 mg/dL (0.1-1.2) 08/21/17 03:17 AST 9 units/L (5-40) 08/21/17 03:17 ALT 5 units/L (7-56) L 08/21/17 03:17 Alkaline Phosphatase 90 units/L (35-129) 08/21/17 03:17 NT-Pro-B Natriuret Pep 165.7 pg/mL (0-900) 08/21/17 03:17 Total Protein 5.2 g/dL (6.3-8.2) L 08/21/17 03:17 Albumin 2.3 g/dL (3.9-5) L 08/21/17 03:17 Albumin/Globulin Ratio 0.8 % 08/21/17 03:17 Vitamin B12 1647 pg/mL (211-911) H 08/22/17 14:30 Folate 7.04 ng/mL (7.3-26.0) L 08/22/17 14:30 TSH 1.910 mlU/mL (0.270-4.200) 08/24/17 13:41 Urine Color Beth (Yellow) 08/21/17 06:54 Urine Turbidity Clear (Clear) 08/21/17 06:54 Urine pH 5.0 (5.0-7.0) 08/21/17 06:54 Ur Specific [place] 1.021 (1.003-1.030) 08/21/17 06:54 Urine Protein 100 mg/dl mg/dL (Negative) 08/21/17 06:54 Urine Glucose (UA) Neg mg/dL (Negative) 08/21/17 06:54 Urine Ketones Neg mg/dL (Negative) 08/21/17 06:54 Urine Blood Neg (Negative) 08/21/17 06:54 Urine Nitrite Neg (Negative) 08/21/17 06:54 Urine Bilirubin Neg (Negative) 08/21/17 06:54 Urine Urobilinogen 4.0 mg/dL (<2.0) 08/21/17 06:54 Ur Leukocyte Esterase Neg (Negative) 08/21/17 06:54 Urine WBC (Auto) 9.0 /HPF (0.0-6.0) H 08/21/17 06:54 Urine RBC (Auto) 4.0 /HPF (0.0-6.0) 08/21/17 06:54 U Epithel Cells (Auto) 11.0 /HPF (0-13.0) 08/21/17 06:54 Urine Bacteria (Auto) 4+ /HPF (Negative) 08/21/17 06:54 Urine WBC Clumps 2+ /HPF 08/21/17 06:54 Urine Mucus 3+ /HPF 08/21/17 06:54 Blood Type B POSITIVE 08/24/17 10:43 Antibody Screen Negative 08/24/17 10:43 Crossmatch See Detail 08/24/17 10:43
[2017-08-28] MEDS: SANTYL TP SCH (17:12)
[2017-08-28] MEDS: DAKIN'S FULL STRENGTH TP SCH ×2 (17:12)
[2017-08-28] MEDS: SODIUM CHLORIDE FLUSH SYRINGE 10 ML IV SCH ×2 (19:09→22:57)
[2017-08-28] MEDS: RisperDAL PO SCH (22:56)
[2017-08-28] MEDS: DepaKENE Liq PO SCH (22:56)
[2017-08-28] MEDS: DESYREL PO SCH (22:56)
[2017-08-29] MEDS: DAKIN'S FULL STRENGTH TP SCH ×2 (04:30→15:00)
[2017-08-29] MEDS: CLEOCIN PO SCH ×3 (05:58→18:04)
[2017-08-29] MEDS: TYLENOL PO PRN (05:58)
[2017-08-29 06:03] LABS: Basophils % (Auto) 0.3 % (0.0-1.8); Eosinophils # (Auto) 0.1 K/mm3 (0.0-0.4); Eosinophils % (Auto) 1.1 % (0.0-4.3); Hematocrit 24.5 % (30.3-42.9); Hemoglobin 7.9 gm/dl (10.1-14.3); Lymphocytes # (Auto) 1.3 K/mm3 (1.2-5.4); Lymphocytes % (Auto) 9.8 % (13.4-35.0); Mean Corpuscular HGB Conc 32 % (30-34); Mean Corpuscular Volume 79 fl (79-97); Monocytes # (Auto) 0.9 K/mm3 (0.0-0.8); Monocytes % (Auto) 6.5 % (0.0-7.3); Platelet Count 464 K/mm3 (140-440); Red Cell Distribution Width 16.2 % (13.2-15.2)
[2017-08-29 06:11] LABS: Mean Corpuscular Hemoglobin 25 pg (28-32)
[2017-08-29 06:22] LABS: BUN/Creatinine Ratio 45; Blood Urea Nitrogen 9 mg/dL (7-17); Calcium 7.1 mg/dL (8.4-10.2); Hemolysis Index 0
[2017-08-29] MEDS ORDERED: KPHOS 30 MMOL in NACL 0.9% 500 ML 500 ML IV ONE (11:30)
[2017-08-29] MEDS: HEPARIN SUB-Q SCH ×2 (11:55→22:10)
[2017-08-29] MEDS: ARICEPT PO SCH (11:55)
[2017-08-29] MEDS: SANTYL TP SCH (11:56)
[2017-08-29] MEDS: SODIUM CHLORIDE FLUSH SYRINGE 10 ML IV SCH (11:56)
[2017-08-29] MEDS: ZESTRIL PO SCH (11:56)
[2017-08-29] MEDS ORDERED: POTASSIUM CHLORIDE FEEDTUBE ONE (12:00)
--- NOTE | 2017-08-29 15:58 | Progress Note ---
Assessment and Plan Assessment and plan: --Hypokalemia; replace per protocol, monitor levels --Hypophosphatemia; replace per protocol and monitor levels --Sacral decubitus ulcers; stage III Status post debridement,Wound care, wound VAC,supportive care --Bilateral heel decubiti; stage III -IV Status post debridement, continue antibiotics wound and supportive care, --Anemia; received 1 unit PRBC Hb 9.4 Closely monitor H&H and transfuse additional as needed, --Severe protein calorie malnutrition; Poor oral intake,due to dysphagia Nutrition supplements and supportive care --Dysphagia; s/p PEG placement,continue tube feeding --Metabolic encephalopathy; multifactorial, supportive care --Sepsis; secondary to UTI present on admission Continue current antibiotics follow cultures --Sepsis secondary to multiple decubitus ulcers [different stages]; present on admission Status post debridement, Continue antibiotic and wound care --Leukocytosis; secondary to sepsis, closely monitor --Hypertension; moderate control, continue current antihypertensives and when necessary medications --DVT prophylaxis; Lovenox --DNR status --DC planning; DC back to SNF when medically stable Plan of care discussed with the daughter and her notes Cleared by surgeon Dr. Mcarthur for discharge and follow-up at wound clinic weekly Plans bilateral AKA in 1 month Continue current management Medically stable for discharge to SNF, Patient's daughter aappealed the discharge Follow-up with case management for disposition History Interval history: Patient seen and examined medical records reviewed Patient feels better no new complaints Vital signs stable Medically stable for discharge to SNF Patient's daughters appeled the dc Hospitalist Physical - Constitutional Vitals: Temp Pulse Resp BP Pulse Ox 97.5 F L 69 16 159/61 100 08/29/17 07:39 08/29/17 07:39 08/29/17 07:39 08/29/17 07:39 08/29/17 07:39 General appearance: Present: no acute distress, cachectic, disheveled, other ( increased oral secretions) - EENT Eyes: Present: PERRL, EOM intact - Neck Neck: Present: supple, normal ROM - Respiratory Respiratory effort: normal Respiratory: bilateral: diminished, negative: rales, rhonchi, wheezing - Cardiovascular Rhythm: regular Heart Sounds: Present: S1 & S2 - Extremities Extremities: no ischemia, pulses intact Peripheral Pulses: within normal limits - Abdominal General gastrointestinal: soft, non-tender, non-distended, normal bowel sounds, other (PEG tube in place) - Integumentary Integumentary: Present: clear, warm - Psychiatric Psychiatric: other (minimally communicative) - Neurologic Neurologic: other (minimally communicative) Results - Labs CBC & Chem 7: 08/29/17 05:35 08/29/17 05:35 Labs: Laboratory Last Values WBC 13.7 K/mm3 (4.5-11.0) H 08/29/17 05:35 RBC 3.10 M/mm3 (3.65-5.03) L 08/29/17 05:35 Hgb 7.9 gm/dl (10.1-14.3) L 08/29/17 05:35 Hct 24.5 % (30.3-42.9) L 08/29/17 05:35 MCV 79 fl (79-97) 08/29/17 05:35 MCH 25 pg (28-32) L 08/29/17 05:35 MCHC 32 % (30-34) 08/29/17 05:35 RDW 16.2 % (13.2-15.2) H 08/29/17 05:35 Plt Count 464 K/mm3 (140-440) H 08/29/17 05:35 Lymph % (Auto) 9.8 % (13.4-35.0) L 08/29/17 05:35 [place] % (Auto) 6.5 % (0.0-7.3) 08/29/17 05:35 Eos % (Auto) 1.1 % (0.0-4.3) 08/29/17 05:35 Baso % (Auto) 0.3 % (0.0-1.8) 08/29/17 05:35 Lymph # 1.3 K/mm3 (1.2-5.4) 08/29/17 05:35 [place] # 0.9 K/mm3 (0.0-0.8) H 08/29/17 05:35 Eos # 0.1 K/mm3 (0.0-0.4) 08/29/17 05:35 Baso # 0.0 K/mm3 (0.0-0.1) 08/29/17 05:35 Add Manual Diff Complete 08/23/17 17:34 Total Counted 100 08/23/17 17:34 Seg Neutrophils % 82.3 % (40.0-70.0) H 08/29/17 05:35 Seg Neuts % (Manual) 92.0 % (40.0-70.0) H 08/23/17 17:34 Band Neutrophils % 3.0 % 08/23/17 17:34 Lymphocytes % (Manual) 4.0 % (13.4-35.0) L 08/23/17 17:34 Reactive Lymphs % (Man) 0 % 08/23/17 17:34 Monocytes % (Manual) 1.0 % (0.0-7.3) 08/23/17 17:34 Eosinophils % (Manual) 0 % (0.0-4.3) 08/23/17 17:34 Basophils % (Manual) 0 % (0.0-1.8) 08/23/17 17:34 Metamyelocytes % 0 % 08/23/17 17:34 Myelocytes % 0 % 08/23/17 17:34 Promyelocytes % 0 % 08/23/17 17:34 Blast Cells % 0 % 08/23/17 17:34 Nucleated RBC % Not Reportable 08/23/17 17:34 Seg Neutrophils # 11.3 K/mm3 (1.8-7.7) H 08/29/17 05:35 Seg Neutrophils # Man 16.3 K/mm3 (1.8-7.7) H 08/23/17 17:34 Band Neutrophils # 0.5 K/mm3 08/23/17 17:34 Lymphocytes # (Manual) 0.7 K/mm3 (1.2-5.4) L 08/23/17 17:34 Abs React Lymphs (Man) 0.0 K/mm3 08/23/17 17:34 Monocytes # (Manual) 0.2 K/mm3 (0.0-0.8) 08/23/17 17:34 Eosinophils # (Manual) 0.0 K/mm3 (0.0-0.4) 08/23/17 17:34 Basophils # (Manual) 0.0 K/mm3 (0.0-0.1) 08/23/17 17:34 Metamyelocytes # 0.0 K/mm3 08/23/17 17:34 Myelocytes # 0.0 K/mm3 08/23/17 17:34 Promyelocytes # 0.0 K/mm3 08/23/17 17:34 Blast Cells # 0.0 K/mm3 08/23/17 17:34 WBC Morphology Not Reportable 08/23/17 17:34 Hypersegmented Neuts Not Reportable 08/23/17 17:34 Hyposegmented Neuts Not Reportable 08/23/17 17:34 Hypogranular Neuts Not Reportable 08/23/17 17:34 Smudge Cells Not Reportable 08/23/17 17:34 Toxic Granulation Not Reportable 08/23/17 17:34 Toxic Vacuolation Not Reportable 08/23/17 17:34 Dohle Bodies Not Reportable 08/23/17 17:34 Pelger-Huet Anomaly Not Reportable 08/23/17 17:34 Abdulkadir Rods Not Reportable 08/23/17 17:34 Platelet Estimate Appears increased 08/23/17 17:34 Clumped Platelets Not Reportable 08/23/17 17:34 Plt Clumps, EDTA Not Reportable 08/23/17 17:34 Large Platelets Not Reportable 08/23/17 17:34 Giant Platelets Not Reportable 08/23/17 17:34 Platelet Satelliting Not Reportable 08/23/17 17:34 Plt Morphology Comment Not Reportable 08/23/17 17:34 RBC Morphology Not Reportable 08/23/17 17:34 Dimorphic RBCs Not Reportable 08/23/17 17:34 Polychromasia Not Reportable 08/23/17 17:34 Hypochromasia 2+ 08/23/17 17:34 Poikilocytosis Not Reportable 08/23/17 17:34 Anisocytosis 1+ 08/23/17 17:34 Microcytosis Not Reportable 08/23/17 17:34 Macrocytosis Not Reportable 08/23/17 17:34 Spherocytes Not Reportable 08/23/17 17:34 Pappenheimer Bodies Not Reportable 08/23/17 17:34 Sickle Cells Not Reportable 08/23/17 17:34 Target Cells 1+ 08/23/17 17:34 Tear Drop Cells Not Reportable 08/23/17 17:34 Ovalocytes 1+ 08/23/17 17:34 Helmet Cells Not Reportable 08/23/17 17:34 [place]done[place] Bodies Not Reportable 08/23/17 17:34 [place] Rings Not Reportable 08/23/17 17:34 [place] Cells Not Reportable 08/23/17 17:34 Bite Cells Not Reportable 08/23/17 17:34 Crenated Cell Not Reportable 08/23/17 17:34 Elliptocytes Not Reportable 08/23/17 17:34 Acanthocytes (Spur) Not Reportable 08/23/17 17:34 Rouleaux Not Reportable 08/23/17 17:34 Hemoglobin C Crystals Not Reportable 08/23/17 17:34 Schistocytes Not Reportable 08/23/17 17:34 Malaria parasites Not Reportable 08/23/17 17:34 Dewayne Bodies Not Reportable 08/23/17 17:34 Hem Pathologist Commnt No 08/23/17 17:34 PT 17.8 Sec. (12.2-14.9) H 08/21/17 03:32 INR 1.38 (0.87-1.13) H 08/21/17 03:32 VBG pH 7.480 (7.320-7.420) H 08/21/17 03:17 Sodium 144 mmol/L (137-145) 08/29/17 05:35 Potassium 3.0 mmol/L (3.6-5.0) L 08/29/17 05:35 Chloride 100.7 mmol/L (98-107) 08/29/17 05:35 Carbon Dioxide 36 mmol/L (22-30) H 08/29/17 05:35 Anion Gap 10 mmol/L 08/29/17 05:35 BUN 9 mg/dL (7-17) 08/29/17 05:35 Creatinine 0.2 mg/dL (0.7-1.2) L 08/29/17 05:35 Estimated GFR > 60 ml/min 08/29/17 05:35 BUN/Creatinine Ratio 45 % 08/29/17 05:35 Glucose 162 mg/dL (65-100) H 08/29/17 05:35 POC Glucose 174 (70-105) H 08/29/17 11:36 Hemoglobin A1c 5.8 % (4-6) 08/21/17 03:17 Lactic Acid 0.70 mmol/L (0.7-2.0) 08/22/17 00:22 Calcium 7.1 mg/dL (8.4-10.2) L 08/29/17 05:35 Phosphorus 2.00 mg/dL (2.5-4.5) L 08/29/17 05:35 Magnesium 2.00 mg/dL (1.7-2.3) 08/29/17 05:35 Iron 11 ug/dL (37-170) L 08/22/17 14:30 Total Bilirubin 0.40 mg/dL (0.1-1.2) 08/21/17 03:17 AST 9 units/L (5-40) 08/21/17 03:17 ALT 5 units/L (7-56) L 08/21/17 03:17 Alkaline Phosphatase 90 units/L (35-129) 08/21/17 03:17 NT-Pro-B Natriuret Pep 165.7 pg/mL (0-900) 08/21/17 03:17 Total Protein 5.2 g/dL (6.3-8.2) L 08/21/17 03:17 Albumin 2.3 g/dL (3.9-5) L 08/21/17 03:17 Albumin/Globulin Ratio 0.8 % 08/21/17 03:17 Vitamin B12 1647 pg/mL (211-911) H 08/22/17 14:30 Folate 7.04 ng/mL (7.3-26.0) L 08/22/17 14:30 TSH 1.910 mlU/mL (0.270-4.200) 08/24/17 13:41 Urine Color Beth (Yellow) 08/21/17 06:54 Urine Turbidity Clear (Clear) 08/21/17 06:54 Urine pH 5.0 (5.0-7.0) 08/21/17 06:54 Ur Specific [place] 1.021 (1.003-1.030) 08/21/17 06:54 Urine Protein 100 mg/dl mg/dL (Negative) 08/21/17 06:54 Urine Glucose (UA) Neg mg/dL (Negative) 08/21/17 06:54 Urine Ketones Neg mg/dL (Negative) 08/21/17 06:54 Urine Blood Neg (Negative) 08/21/17 06:54 Urine Nitrite Neg (Negative) 08/21/17 06:54 Urine Bilirubin Neg (Negative) 08/21/17 06:54 Urine Urobilinogen 4.0 mg/dL (<2.0) 08/21/17 06:54 Ur Leukocyte Esterase Neg (Negative) 08/21/17 06:54 Urine WBC (Auto) 9.0 /HPF (0.0-6.0) H 08/21/17 06:54 Urine RBC (Auto) 4.0 /HPF (0.0-6.0) 08/21/17 06:54 U Epithel Cells (Auto) 11.0 /HPF (0-13.0) 08/21/17 06:54 Urine Bacteria (Auto) 4+ /HPF (Negative) 08/21/17 06:54 Urine WBC Clumps 2+ /HPF 08/21/17 06:54 Urine Mucus 3+ /HPF 08/21/17 06:54 Blood Type B POSITIVE 08/24/17 10:43 Antibody Screen Negative 08/24/17 10:43 Crossmatch See Detail 08/24/17 10:43
[2017-08-29] MEDS: RisperDAL PO SCH (22:15)
[2017-08-29] MEDS: DepaKENE Liq PO SCH (22:15)
[2017-08-30] MEDS: CLEOCIN PO SCH ×4 (01:11→20:00)
[2017-08-30] MEDS: ZESTRIL PO SCH (10:26)
[2017-08-30] MEDS: ARICEPT PO SCH (10:27)
[2017-08-30] MEDS: HEPARIN SUB-Q SCH (10:27)
[2017-08-30] MEDS: SODIUM CHLORIDE FLUSH SYRINGE 10 ML IV SCH (10:28)
[2017-08-30] MEDS: SANTYL TP SCH (10:29)
--- NOTE | 2017-08-30 20:05 | Progress Note ---
Assessment and Plan Assessment and plan: --Hypokalemia/ Hypophosphatemia; replace per protocol and monitor levels --Sacral decubitus ulcers; stage III Status post debridement,Wound care, wound VAC,supportive care --Bilateral heel decubiti; stage III -IV Status post debridement, continue antibiotics wound and supportive care, --Anemia; received 1 unit PRBC Hb 9.4 Closely monitor H&H and transfuse additional as needed, --Severe protein calorie malnutrition; Poor oral intake,due to dysphagia Nutrition supplements and supportive care --Dysphagia; s/p PEG placement,continue tube feeding --Metabolic encephalopathy; multifactorial, supportive care --Sepsis; secondary to UTI present on admission Continue current antibiotics follow cultures --Sepsis secondary to multiple decubitus ulcers [different stages]; present on admission Status post debridement, Continue antibiotic and wound care --Leukocytosis; secondary to sepsis, closely monitor --Hypertension; moderate control, continue current antihypertensives and when necessary medications --DVT prophylaxis; Lovenox --DNR status --DC planning; DC back to SNF when medically stable Plan of care discussed with the daughter and her notes Cleared by surgeon Dr. Mcarthur for discharge and follow-up at wound clinic weekly Plans bilateral AKA in 1 month Continue current management Medically stable for discharge to SNF, case management for disposition History Interval history: Patient seen and examined medical records reviewed Patient is clinically stable No new complaints Awaiting SNF placement Wound care people chainged the wound VAC Hospitalist Physical - Constitutional Vitals: Temp Pulse Resp BP Pulse Ox 98.4 F 85 20 185/83 100 08/30/17 13:10 08/30/17 13:10 08/30/17 13:10 08/30/17 13:10 08/30/17 13:10 General appearance: Present: no acute distress, cachectic, disheveled - EENT Eyes: Present: PERRL, EOM intact - Neck Neck: Present: supple, normal ROM - Respiratory Respiratory effort: normal Respiratory: bilateral: diminished, negative: rales, rhonchi, wheezing - Cardiovascular Rhythm: regular Heart Sounds: Present: S1 & S2 - Extremities Extremities: abnormal (chronic decubitus ulcers status post debridement) Extremity abnormal: edema - Abdominal General gastrointestinal: soft, non-tender, non-distended, normal bowel sounds - Integumentary Integumentary: Present: clear, warm - Psychiatric Psychiatric: appropriate mood/affect, cooperative - Neurologic Neurologic: moves all extremities, other (family communicative) Results - Labs CBC & Chem 7: 08/29/17 05:35 08/29/17 05:35 Labs: Laboratory Last Values WBC 13.7 K/mm3 (4.5-11.0) H 08/29/17 05:35 RBC 3.10 M/mm3 (3.65-5.03) L 08/29/17 05:35 Hgb 7.9 gm/dl (10.1-14.3) L 08/29/17 05:35 Hct 24.5 % (30.3-42.9) L 08/29/17 05:35 MCV 79 fl (79-97) 08/29/17 05:35 MCH 25 pg (28-32) L 08/29/17 05:35 MCHC 32 % (30-34) 08/29/17 05:35 RDW 16.2 % (13.2-15.2) H 08/29/17 05:35 Plt Count 464 K/mm3 (140-440) H 08/29/17 05:35 Lymph % (Auto) 9.8 % (13.4-35.0) L 08/29/17 05:35 [place] % (Auto) 6.5 % (0.0-7.3) 08/29/17 05:35 Eos % (Auto) 1.1 % (0.0-4.3) 08/29/17 05:35 Baso % (Auto) 0.3 % (0.0-1.8) 08/29/17 05:35 Lymph # 1.3 K/mm3 (1.2-5.4) 08/29/17 05:35 [place] # 0.9 K/mm3 (0.0-0.8) H 08/29/17 05:35 Eos # 0.1 K/mm3 (0.0-0.4) 08/29/17 05:35 Baso # 0.0 K/mm3 (0.0-0.1) 08/29/17 05:35 Add Manual Diff Complete 08/23/17 17:34 Total Counted 100 08/23/17 17:34 Seg Neutrophils % 82.3 % (40.0-70.0) H 08/29/17 05:35 Seg Neuts % (Manual) 92.0 % (40.0-70.0) H 08/23/17 17:34 Band Neutrophils % 3.0 % 08/23/17 17:34 Lymphocytes % (Manual) 4.0 % (13.4-35.0) L 08/23/17 17:34 Reactive Lymphs % (Man) 0 % 08/23/17 17:34 Monocytes % (Manual) 1.0 % (0.0-7.3) 08/23/17 17:34 Eosinophils % (Manual) 0 % (0.0-4.3) 08/23/17 17:34 Basophils % (Manual) 0 % (0.0-1.8) 08/23/17 17:34 Metamyelocytes % 0 % 08/23/17 17:34 Myelocytes % 0 % 08/23/17 17:34 Promyelocytes % 0 % 08/23/17 17:34 Blast Cells % 0 % 08/23/17 17:34 Nucleated RBC % Not Reportable 08/23/17 17:34 Seg Neutrophils # 11.3 K/mm3 (1.8-7.7) H 08/29/17 05:35 Seg Neutrophils # Man 16.3 K/mm3 (1.8-7.7) H 08/23/17 17:34 Band Neutrophils # 0.5 K/mm3 08/23/17 17:34 Lymphocytes # (Manual) 0.7 K/mm3 (1.2-5.4) L 08/23/17 17:34 Abs React Lymphs (Man) 0.0 K/mm3 08/23/17 17:34 Monocytes # (Manual) 0.2 K/mm3 (0.0-0.8) 08/23/17 17:34 Eosinophils # (Manual) 0.0 K/mm3 (0.0-0.4) 08/23/17 17:34 Basophils # (Manual) 0.0 K/mm3 (0.0-0.1) 08/23/17 17:34 Metamyelocytes # 0.0 K/mm3 08/23/17 17:34 Myelocytes # 0.0 K/mm3 08/23/17 17:34 Promyelocytes # 0.0 K/mm3 08/23/17 17:34 Blast Cells # 0.0 K/mm3 08/23/17 17:34 WBC Morphology Not Reportable 08/23/17 17:34 Hypersegmented Neuts Not Reportable 08/23/17 17:34 Hyposegmented Neuts Not Reportable 08/23/17 17:34 Hypogranular Neuts Not Reportable 08/23/17 17:34 Smudge Cells Not Reportable 08/23/17 17:34 Toxic Granulation Not Reportable 08/23/17 17:34 Toxic Vacuolation Not Reportable 08/23/17 17:34 Dohle Bodies Not Reportable 08/23/17 17:34 Pelger-Huet Anomaly Not Reportable 08/23/17 17:34 Abdulkadir Rods Not Reportable 08/23/17 17:34 Platelet Estimate Appears increased 08/23/17 17:34 Clumped Platelets Not Reportable 08/23/17 17:34 Plt Clumps, EDTA Not Reportable 08/23/17 17:34 Large Platelets Not Reportable 08/23/17 17:34 Giant Platelets Not Reportable 08/23/17 17:34 Platelet Satelliting Not Reportable 08/23/17 17:34 Plt Morphology Comment Not Reportable 08/23/17 17:34 RBC Morphology Not Reportable 08/23/17 17:34 Dimorphic RBCs Not Reportable 08/23/17 17:34 Polychromasia Not Reportable 08/23/17 17:34 Hypochromasia 2+ 08/23/17 17:34 Poikilocytosis Not Reportable 08/23/17 17:34 Anisocytosis 1+ 08/23/17 17:34 Microcytosis Not Reportable 08/23/17 17:34 Macrocytosis Not Reportable 08/23/17 17:34 Spherocytes Not Reportable 08/23/17 17:34 Pappenheimer Bodies Not Reportable 08/23/17 17:34 Sickle Cells Not Reportable 08/23/17 17:34 Target Cells 1+ 08/23/17 17:34 Tear Drop Cells Not Reportable 08/23/17 17:34 Ovalocytes 1+ 08/23/17 17:34 Helmet Cells Not Reportable 08/23/17 17:34 Ordonez-Calpella Bodies Not Reportable 08/23/17 17:34 [place] Rings Not Reportable 08/23/17 17:34 Marilyn Cells Not Reportable 08/23/17 17:34 Bite Cells Not Reportable 08/23/17 17:34 Crenated Cell Not Reportable 08/23/17 17:34 Elliptocytes Not Reportable 08/23/17 17:34 Acanthocytes (Spur) Not Reportable 08/23/17 17:34 Rouleaux Not Reportable 08/23/17 17:34 Hemoglobin C Crystals Not Reportable 08/23/17 17:34 Schistocytes Not Reportable 08/23/17 17:34 Malaria parasites Not Reportable 08/23/17 17:34 Dewayne Bodies Not Reportable 08/23/17 17:34 Hem Pathologist Commnt No 08/23/17 17:34 PT 17.8 Sec. (12.2-14.9) H 08/21/17 03:32 INR 1.38 (0.87-1.13) H 08/21/17 03:32 VBG pH 7.480 (7.320-7.420) H 08/21/17 03:17 Sodium 144 mmol/L (137-145) 08/29/17 05:35 Potassium 3.0 mmol/L (3.6-5.0) L 08/29/17 05:35 Chloride 100.7 mmol/L (98-107) 08/29/17 05:35 Carbon Dioxide 36 mmol/L (22-30) H 08/29/17 05:35 Anion Gap 10 mmol/L 08/29/17 05:35 BUN 9 mg/dL (7-17) 08/29/17 05:35 Creatinine 0.2 mg/dL (0.7-1.2) L 08/29/17 05:35 Estimated GFR > 60 ml/min 08/29/17 05:35 BUN/Creatinine Ratio 45 % 08/29/17 05:35 Glucose 162 mg/dL (65-100) H 08/29/17 05:35 POC Glucose 126 (70-105) H 08/30/17 17:51 Hemoglobin A1c 5.8 % (4-6) 08/21/17 03:17 Lactic Acid 0.70 mmol/L (0.7-2.0) 08/22/17 00:22 Calcium 7.1 mg/dL (8.4-10.2) L 08/29/17 05:35 Phosphorus 2.00 mg/dL (2.5-4.5) L 08/29/17 05:35 Magnesium 2.00 mg/dL (1.7-2.3) 08/29/17 05:35 Iron 11 ug/dL (37-170) L 08/22/17 14:30 Total Bilirubin 0.40 mg/dL (0.1-1.2) 08/21/17 03:17 AST 9 units/L (5-40) 08/21/17 03:17 ALT 5 units/L (7-56) L 08/21/17 03:17 Alkaline Phosphatase 90 units/L (35-129) 08/21/17 03:17 NT-Pro-B Natriuret Pep 165.7 pg/mL (0-900) 08/21/17 03:17 Total Protein 5.2 g/dL (6.3-8.2) L 08/21/17 03:17 Albumin 2.3 g/dL (3.9-5) L 08/21/17 03:17 Albumin/Globulin Ratio 0.8 % 08/21/17 03:17 Vitamin B12 1647 pg/mL (211-911) H 08/22/17 14:30 Folate 7.04 ng/mL (7.3-26.0) L 08/22/17 14:30 TSH 1.910 mlU/mL (0.270-4.200) 08/24/17 13:41 Urine Color Beth (Yellow) 08/21/17 06:54 Urine Turbidity Clear (Clear) 08/21/17 06:54 Urine pH 5.0 (5.0-7.0) 08/21/17 06:54 Ur Specific [place] 1.021 (1.003-1.030) 08/21/17 06:54 Urine Protein 100 mg/dl mg/dL (Negative) 08/21/17 06:54 Urine Glucose (UA) Neg mg/dL (Negative) 08/21/17 06:54 Urine Ketones Neg mg/dL (Negative) 08/21/17 06:54 Urine Blood Neg (Negative) 08/21/17 06:54 Urine Nitrite Neg (Negative) 08/21/17 06:54 Urine Bilirubin Neg (Negative) 08/21/17 06:54 Urine Urobilinogen 4.0 mg/dL (<2.0) 08/21/17 06:54 Ur Leukocyte Esterase Neg (Negative) 08/21/17 06:54 Urine WBC (Auto) 9.0 /HPF (0.0-6.0) H 08/21/17 06:54 Urine RBC (Auto) 4.0 /HPF (0.0-6.0) 08/21/17 06:54 U Epithel Cells (Auto) 11.0 /HPF (0-13.0) 08/21/17 06:54 Urine Bacteria (Auto) 4+ /HPF (Negative) 08/21/17 06:54 Urine WBC Clumps 2+ /HPF 08/21/17 06:54 Urine Mucus 3+ /HPF 08/21/17 06:54 Blood Type B POSITIVE 08/24/17 10:43 Antibody Screen Negative 08/24/17 10:43 Crossmatch See Detail 08/24/17 10:43
--- NOTE | 2017-08-30 20:13 | Event Note ---
Date: 08/30/17 Initial plan to discharge to [facility] facility today However patient did not have wound VAC Discussed with the case management nursing supervisor roller printing We will continue current management, secured wound VAC Possible discharge SNF tomorrow, if stable
[2017-08-31 05:28] LABS: BUN/Creatinine Ratio 40; Blood Urea Nitrogen 8 mg/dL (7-17); Calcium 7.5 mg/dL (8.4-10.2); Hemolysis Index 1
[2017-08-31] MEDS ORDERED: TYLENOL FEEDTUBE PRN (06:30)
[2017-08-31] MEDS: ARICEPT FEEDTUBE SCH (09:18)
[2017-08-31] MEDS: HEPARIN SUB-Q SCH ×2 (09:19→23:14)
[2017-08-31] MEDS: SANTYL TP SCH (09:20)
[2017-08-31] MEDS: SODIUM CHLORIDE FLUSH SYRINGE 10 ML IV SCH ×2 (09:21→22:54)
[2017-08-31] MEDS: ZESTRIL FEEDTUBE SCH (10:15)
--- NOTE | 2017-08-31 12:22 | Progress Note ---
Assessment and Plan Assessment and plan: --Hypokalemia/ Hypophosphatemia; replace per protocol and monitor levels --Sacral decubitus ulcers; stage III Status post debridement,Wound care, wound VAC,supportive care --Bilateral heel decubiti; stage III -IV Status post debridement, continue antibiotics wound and supportive care, --Anemia; received 1 unit PRBC Hb 9.4 Closely monitor H&H and transfuse additional as needed, --Severe protein calorie malnutrition; Poor oral intake,due to dysphagia Nutrition supplements and supportive care --Dysphagia; s/p PEG placement,continue tube feeding --Metabolic encephalopathy; multifactorial, supportive care --Sepsis; secondary to UTI present on admission Continue current antibiotics follow cultures --Sepsis secondary to multiple decubitus ulcers [different stages]; present on admission Status post debridement, Continue antibiotic and wound care --Leukocytosis; secondary to sepsis, closely monitor --Hypertension; moderate control, continue current antihypertensives and when necessary medications --DVT prophylaxis; Lovenox --DNR status --DC planning; DC back to SNF when medically stable Plan of care discussed with the daughter and her notes Cleared by surgeon Dr. Mcarthur for discharge and follow-up at wound clinic weekly Plans bilateral AKA in 1 month Continue current management Medically stable for discharge to SNF, case management for disposition Awaiting wound VAC History Interval history: Sincerely and examined Clinically stable,Awaiting placement/wound VAC No new complaints Vitals stable Hospitalist Physical - Constitutional Vitals: Temp Pulse Resp BP Pulse Ox 98.0 F 92 H 18 138/68 98 08/31/17 07:46 08/31/17 10:00 08/31/17 10:00 08/31/17 07:46 08/31/17 10:00 General appearance: Present: no acute distress, cachectic, disheveled - EENT Eyes: Present: PERRL, EOM intact - Neck Neck: Present: supple, normal ROM - Respiratory Respiratory effort: normal Respiratory: bilateral: diminished, negative: rales, rhonchi, wheezing - Cardiovascular Rhythm: regular Heart Sounds: Present: S1 & S2 - Extremities Extremities: no ischemia, No edema, abnormal (dressing in place) - Abdominal General gastrointestinal: soft, tender, normal bowel sounds, other (PEG in place ) - Integumentary Integumentary: Present: clear, warm - Psychiatric Psychiatric: other (minimal communicative) - Neurologic Neurologic: other (minimally communicative) Results - Labs CBC & Chem 7: 08/29/17 05:35 08/31/17 04:50 Labs: Laboratory Last Values WBC 13.7 K/mm3 (4.5-11.0) H 08/29/17 05:35 RBC 3.10 M/mm3 (3.65-5.03) L 08/29/17 05:35 Hgb 7.9 gm/dl (10.1-14.3) L 08/29/17 05:35 Hct 24.5 % (30.3-42.9) L 08/29/17 05:35 MCV 79 fl (79-97) 08/29/17 05:35 MCH 25 pg (28-32) L 08/29/17 05:35 MCHC 32 % (30-34) 08/29/17 05:35 RDW 16.2 % (13.2-15.2) H 08/29/17 05:35 Plt Count 464 K/mm3 (140-440) H 08/29/17 05:35 Lymph % (Auto) 9.8 % (13.4-35.0) L 08/29/17 05:35 [place] % (Auto) 6.5 % (0.0-7.3) 08/29/17 05:35 Eos % (Auto) 1.1 % (0.0-4.3) 08/29/17 05:35 Baso % (Auto) 0.3 % (0.0-1.8) 08/29/17 05:35 Lymph # 1.3 K/mm3 (1.2-5.4) 08/29/17 05:35 [place] # 0.9 K/mm3 (0.0-0.8) H 08/29/17 05:35 Eos # 0.1 K/mm3 (0.0-0.4) 08/29/17 05:35 Baso # 0.0 K/mm3 (0.0-0.1) 08/29/17 05:35 Add Manual Diff Complete 08/23/17 17:34 Total Counted 100 08/23/17 17:34 Seg Neutrophils % 82.3 % (40.0-70.0) H 08/29/17 05:35 Seg Neuts % (Manual) 92.0 % (40.0-70.0) H 08/23/17 17:34 Band Neutrophils % 3.0 % 08/23/17 17:34 Lymphocytes % (Manual) 4.0 % (13.4-35.0) L 08/23/17 17:34 Reactive Lymphs % (Man) 0 % 08/23/17 17:34 Monocytes % (Manual) 1.0 % (0.0-7.3) 08/23/17 17:34 Eosinophils % (Manual) 0 % (0.0-4.3) 08/23/17 17:34 Basophils % (Manual) 0 % (0.0-1.8) 08/23/17 17:34 Metamyelocytes % 0 % 08/23/17 17:34 Myelocytes % 0 % 08/23/17 17:34 Promyelocytes % 0 % 08/23/17 17:34 Blast Cells % 0 % 08/23/17 17:34 Nucleated RBC % Not Reportable 08/23/17 17:34 Seg Neutrophils # 11.3 K/mm3 (1.8-7.7) H 08/29/17 05:35 Seg Neutrophils # Man 16.3 K/mm3 (1.8-7.7) H 08/23/17 17:34 Band Neutrophils # 0.5 K/mm3 08/23/17 17:34 Lymphocytes # (Manual) 0.7 K/mm3 (1.2-5.4) L 08/23/17 17:34 Abs React Lymphs (Man) 0.0 K/mm3 08/23/17 17:34 Monocytes # (Manual) 0.2 K/mm3 (0.0-0.8) 08/23/17 17:34 Eosinophils # (Manual) 0.0 K/mm3 (0.0-0.4) 08/23/17 17:34 Basophils # (Manual) 0.0 K/mm3 (0.0-0.1) 08/23/17 17:34 Metamyelocytes # 0.0 K/mm3 08/23/17 17:34 Myelocytes # 0.0 K/mm3 08/23/17 17:34 Promyelocytes # 0.0 K/mm3 08/23/17 17:34 Blast Cells # 0.0 K/mm3 08/23/17 17:34 WBC Morphology Not Reportable 08/23/17 17:34 Hypersegmented Neuts Not Reportable 08/23/17 17:34 Hyposegmented Neuts Not Reportable 08/23/17 17:34 Hypogranular Neuts Not Reportable 08/23/17 17:34 Smudge Cells Not Reportable 08/23/17 17:34 Toxic Granulation Not Reportable 08/23/17 17:34 Toxic Vacuolation Not Reportable 08/23/17 17:34 Dohle Bodies Not Reportable 08/23/17 17:34 Pelger-Huet Anomaly Not Reportable 08/23/17 17:34 Abdulkadir Rods Not Reportable 08/23/17 17:34 Platelet Estimate Appears increased 08/23/17 17:34 Clumped Platelets Not Reportable 08/23/17 17:34 Plt Clumps, EDTA Not Reportable 08/23/17 17:34 Large Platelets Not Reportable 08/23/17 17:34 Giant Platelets Not Reportable 08/23/17 17:34 Platelet Satelliting Not Reportable 08/23/17 17:34 Plt Morphology Comment Not Reportable 08/23/17 17:34 RBC Morphology Not Reportable 08/23/17 17:34 Dimorphic RBCs Not Reportable 08/23/17 17:34 Polychromasia Not Reportable 08/23/17 17:34 Hypochromasia 2+ 08/23/17 17:34 Poikilocytosis Not Reportable 08/23/17 17:34 Anisocytosis 1+ 08/23/17 17:34 Microcytosis Not Reportable 08/23/17 17:34 Macrocytosis Not Reportable 08/23/17 17:34 Spherocytes Not Reportable 08/23/17 17:34 Pappenheimer Bodies Not Reportable 08/23/17 17:34 Sickle Cells Not Reportable 08/23/17 17:34 Target Cells 1+ 08/23/17 17:34 Tear Drop Cells Not Reportable 08/23/17 17:34 Ovalocytes 1+ 08/23/17 17:34 Helmet Cells Not Reportable 08/23/17 17:34 Ordonez-Cornelia Bodies Not Reportable 08/23/17 17:34 [place] Rings Not Reportable 08/23/17 17:34 Marilyn Cells Not Reportable 08/23/17 17:34 Bite Cells Not Reportable 08/23/17 17:34 Crenated Cell Not Reportable 08/23/17 17:34 Elliptocytes Not Reportable 08/23/17 17:34 Acanthocytes (Spur) Not Reportable 08/23/17 17:34 Rouleaux Not Reportable 08/23/17 17:34 Hemoglobin C Crystals Not Reportable 08/23/17 17:34 Schistocytes Not Reportable 08/23/17 17:34 Malaria parasites Not Reportable 08/23/17 17:34 Dewayne Bodies Not Reportable 08/23/17 17:34 Hem Pathologist Commnt No 08/23/17 17:34 PT 17.8 Sec. (12.2-14.9) H 08/21/17 03:32 INR 1.38 (0.87-1.13) H 08/21/17 03:32 VBG pH 7.480 (7.320-7.420) H 08/21/17 03:17 Sodium 142 mmol/L (137-145) 08/31/17 04:50 Potassium 3.7 mmol/L (3.6-5.0) D 08/31/17 04:50 Chloride 96.9 mmol/L (98-107) L 08/31/17 04:50 Carbon Dioxide 39 mmol/L (22-30) H 08/31/17 04:50 Anion Gap 10 mmol/L 08/31/17 04:50 BUN 8 mg/dL (7-17) 08/31/17 04:50 Creatinine < 0.2 mg/dL (0.7-1.2) L 08/31/17 04:50 Estimated GFR > 60 ml/min 08/31/17 04:50 BUN/Creatinine Ratio 40 % 08/31/17 04:50 Glucose 164 mg/dL (65-100) H 08/31/17 04:50 POC Glucose 189 (70-105) H 08/31/17 06:34 Hemoglobin A1c 5.8 % (4-6) 08/21/17 03:17 Lactic Acid 0.70 mmol/L (0.7-2.0) 08/22/17 00:22 Calcium 7.5 mg/dL (8.4-10.2) L 08/31/17 04:50 Phosphorus 2.60 mg/dL (2.5-4.5) 08/31/17 04:50 Magnesium 1.90 mg/dL (1.7-2.3) 08/31/17 04:50 Iron 11 ug/dL (37-170) L 08/22/17 14:30 Total Bilirubin 0.40 mg/dL (0.1-1.2) 08/21/17 03:17 AST 9 units/L (5-40) 08/21/17 03:17 ALT 5 units/L (7-56) L 08/21/17 03:17 Alkaline Phosphatase 90 units/L (35-129) 08/21/17 03:17 NT-Pro-B Natriuret Pep 165.7 pg/mL (0-900) 08/21/17 03:17 Total Protein 5.2 g/dL (6.3-8.2) L 08/21/17 03:17 Albumin 2.3 g/dL (3.9-5) L 08/21/17 03:17 Albumin/Globulin Ratio 0.8 % 08/21/17 03:17 Vitamin B12 1647 pg/mL (211-911) H 08/22/17 14:30 Folate 7.04 ng/mL (7.3-26.0) L 08/22/17 14:30 TSH 1.910 mlU/mL (0.270-4.200) 08/24/17 13:41 Urine Color Beth (Yellow) 08/21/17 06:54 Urine Turbidity Clear (Clear) 08/21/17 06:54 Urine pH 5.0 (5.0-7.0) 08/21/17 06:54 Ur Specific [place] 1.021 (1.003-1.030) 08/21/17 06:54 Urine Protein 100 mg/dl mg/dL (Negative) 08/21/17 06:54 Urine Glucose (UA) Neg mg/dL (Negative) 08/21/17 06:54 Urine Ketones Neg mg/dL (Negative) 08/21/17 06:54 Urine Blood Neg (Negative) 08/21/17 06:54 Urine Nitrite Neg (Negative) 08/21/17 06:54 Urine Bilirubin Neg (Negative) 08/21/17 06:54 Urine Urobilinogen 4.0 mg/dL (<2.0) 08/21/17 06:54 Ur Leukocyte Esterase Neg (Negative) 08/21/17 06:54 Urine WBC (Auto) 9.0 /HPF (0.0-6.0) H 08/21/17 06:54 Urine RBC (Auto) 4.0 /HPF (0.0-6.0) 08/21/17 06:54 U Epithel Cells (Auto) 11.0 /HPF (0-13.0) 08/21/17 06:54 Urine Bacteria (Auto) 4+ /HPF (Negative) 08/21/17 06:54 Urine WBC Clumps 2+ /HPF 08/21/17 06:54 Urine Mucus 3+ /HPF 08/21/17 06:54 Blood Type B POSITIVE 08/24/17 10:43 Antibody Screen Negative 08/24/17 10:43 Crossmatch See Detail 08/24/17 10:43
[2017-08-31] MEDS: CLEOCIN FEEDTUBE SCH ×2 (12:52→17:49)
[2017-08-31] MEDS: DepaKENE Liq FEEDTUBE SCH (22:50)
[2017-08-31] MEDS: RisperDAL FEEDTUBE SCH (22:51)
[2017-08-31] MEDS: DESYREL PO SCH (23:14)
[2017-09-01] MEDS: CLEOCIN FEEDTUBE SCH ×4 (00:31→17:38)
[2017-09-01] MEDS: SODIUM CHLORIDE FLUSH SYRINGE 10 ML IV SCH ×2 (09:33→22:25)
[2017-09-01] MEDS: SANTYL TP SCH (09:33)
[2017-09-01] MEDS: ZESTRIL FEEDTUBE SCH (09:33)
[2017-09-01] MEDS: ARICEPT FEEDTUBE SCH (09:33)
[2017-09-01] MEDS: HEPARIN SUB-Q SCH ×2 (09:45→22:24)
[2017-09-01] MEDS ORDERED: MORPHINE IV PRN (15:17)
[2017-09-01] MEDS ORDERED: SODIUM CHLORIDE FLUSH SYRINGE 10 ML IV PRN (15:21)
[2017-09-01] MEDS ORDERED: ZOFRAN IV PRN (15:21)
[2017-09-01] MEDS ORDERED: SIMPLE SYRUP FEEDTUBE PRN ×2 (15:21→15:22)
[2017-09-01] MEDS ORDERED: SODIUM BICARBONATE FEEDTUBE PRN (15:22)
--- NOTE | 2017-09-01 19:35 | Progress Note ---
Assessment and Plan Assessment and plan: --Hypokalemia/ Hypophosphatemia; corrected --Sacral decubitus ulcers; stage III Status post debridement,Wound care, wound VAC,supportive care --Bilateral heel decubiti; stage III -IV Status post debridement, continue antibiotics wound and supportive care, --Anemia; received 1 unit PRBC Hb 9.4 Closely monitor H&H and transfuse additional as needed, --Severe protein calorie malnutrition; Poor oral intake,due to dysphagia Nutrition supplements and supportive care --Dysphagia; s/p PEG placement,continue tube feeding --Metabolic encephalopathy; multifactorial, supportive care --Sepsis; secondary to UTI present on admission Continue current antibiotics follow cultures --Sepsis secondary to multiple decubitus ulcers [different stages]; present on admission Status post debridement, Continue antibiotic and wound care --Leukocytosis; secondary to sepsis, closely monitor --Hypertension; moderate control, continue current antihypertensives and when necessary medications --DVT prophylaxis; Lovenox --DNR status --DC planning; DC back to SNF when medically stable Plan of care discussed with the daughter and her notes Cleared by surgeon Dr. Mcarthur for discharge and follow-up at wound clinic weekly Plans bilateral AKA in 1 month Continue current management Medically stable for discharge to SNF, case management for disposition Awaiting wound VAC History Interval history: Patient seen and examined medical records reviewed Clinically stable, no new complaints Awaiting placement Hospitalist Physical - Constitutional Vitals: Temp Pulse Resp BP Pulse Ox 98.3 F 81 20 136/67 97 09/01/17 14:59 09/01/17 14:59 09/01/17 14:59 09/01/17 14:59 09/01/17 14:59 General appearance: Present: no acute distress, cachectic, disheveled - EENT Eyes: Present: PERRL, EOM intact - Neck Neck: Present: supple, normal ROM - Respiratory Respiratory effort: normal Respiratory: negative: rales, rhonchi, wheezing - Cardiovascular Rhythm: regular Heart Sounds: Present: S1 & S2 - Extremities Extremities: abnormal (dressing in place) - Abdominal General gastrointestinal: soft, non-tender, non-distended, normal bowel sounds, other (PEG tube in place) - Integumentary Integumentary: Present: clear, warm - Psychiatric Psychiatric: other (minimally communicative) - Neurologic Neurologic: moves all extremities Results - Labs CBC & Chem 7: 08/29/17 05:35 08/31/17 04:50 Labs: Laboratory Last Values WBC 13.7 K/mm3 (4.5-11.0) H 08/29/17 05:35 RBC 3.10 M/mm3 (3.65-5.03) L 08/29/17 05:35 Hgb 7.9 gm/dl (10.1-14.3) L 08/29/17 05:35 Hct 24.5 % (30.3-42.9) L 08/29/17 05:35 MCV 79 fl (79-97) 08/29/17 05:35 MCH 25 pg (28-32) L 08/29/17 05:35 MCHC 32 % (30-34) 08/29/17 05:35 RDW 16.2 % (13.2-15.2) H 08/29/17 05:35 Plt Count 464 K/mm3 (140-440) H 08/29/17 05:35 Lymph % (Auto) 9.8 % (13.4-35.0) L 08/29/17 05:35 [place] % (Auto) 6.5 % (0.0-7.3) 08/29/17 05:35 Eos % (Auto) 1.1 % (0.0-4.3) 08/29/17 05:35 Baso % (Auto) 0.3 % (0.0-1.8) 08/29/17 05:35 Lymph # 1.3 K/mm3 (1.2-5.4) 08/29/17 05:35 [place] # 0.9 K/mm3 (0.0-0.8) H 08/29/17 05:35 Eos # 0.1 K/mm3 (0.0-0.4) 08/29/17 05:35 Baso # 0.0 K/mm3 (0.0-0.1) 08/29/17 05:35 Add Manual Diff Complete 08/23/17 17:34 Total Counted 100 08/23/17 17:34 Seg Neutrophils % 82.3 % (40.0-70.0) H 08/29/17 05:35 Seg Neuts % (Manual) 92.0 % (40.0-70.0) H 08/23/17 17:34 Band Neutrophils % 3.0 % 08/23/17 17:34 Lymphocytes % (Manual) 4.0 % (13.4-35.0) L 08/23/17 17:34 Reactive Lymphs % (Man) 0 % 08/23/17 17:34 Monocytes % (Manual) 1.0 % (0.0-7.3) 08/23/17 17:34 Eosinophils % (Manual) 0 % (0.0-4.3) 08/23/17 17:34 Basophils % (Manual) 0 % (0.0-1.8) 08/23/17 17:34 Metamyelocytes % 0 % 08/23/17 17:34 Myelocytes % 0 % 08/23/17 17:34 Promyelocytes % 0 % 08/23/17 17:34 Blast Cells % 0 % 08/23/17 17:34 Nucleated RBC % Not Reportable 08/23/17 17:34 Seg Neutrophils # 11.3 K/mm3 (1.8-7.7) H 08/29/17 05:35 Seg Neutrophils # Man 16.3 K/mm3 (1.8-7.7) H 08/23/17 17:34 Band Neutrophils # 0.5 K/mm3 08/23/17 17:34 Lymphocytes # (Manual) 0.7 K/mm3 (1.2-5.4) L 08/23/17 17:34 Abs React Lymphs (Man) 0.0 K/mm3 08/23/17 17:34 Monocytes # (Manual) 0.2 K/mm3 (0.0-0.8) 08/23/17 17:34 Eosinophils # (Manual) 0.0 K/mm3 (0.0-0.4) 08/23/17 17:34 Basophils # (Manual) 0.0 K/mm3 (0.0-0.1) 08/23/17 17:34 Metamyelocytes # 0.0 K/mm3 08/23/17 17:34 Myelocytes # 0.0 K/mm3 08/23/17 17:34 Promyelocytes # 0.0 K/mm3 08/23/17 17:34 Blast Cells # 0.0 K/mm3 08/23/17 17:34 WBC Morphology Not Reportable 08/23/17 17:34 Hypersegmented Neuts Not Reportable 08/23/17 17:34 Hyposegmented Neuts Not Reportable 08/23/17 17:34 Hypogranular Neuts Not Reportable 08/23/17 17:34 Smudge Cells Not Reportable 08/23/17 17:34 Toxic Granulation Not Reportable 08/23/17 17:34 Toxic Vacuolation Not Reportable 08/23/17 17:34 Dohle Bodies Not Reportable 08/23/17 17:34 Pelger-Huet Anomaly Not Reportable 08/23/17 17:34 Abdulkadir Rods Not Reportable 08/23/17 17:34 Platelet Estimate Appears increased 08/23/17 17:34 Clumped Platelets Not Reportable 08/23/17 17:34 Plt Clumps, EDTA Not Reportable 08/23/17 17:34 Large Platelets Not Reportable 08/23/17 17:34 Giant Platelets Not Reportable 08/23/17 17:34 Platelet Satelliting Not Reportable 08/23/17 17:34 Plt Morphology Comment Not Reportable 08/23/17 17:34 RBC Morphology Not Reportable 08/23/17 17:34 Dimorphic RBCs Not Reportable 08/23/17 17:34 Polychromasia Not Reportable 08/23/17 17:34 Hypochromasia 2+ 08/23/17 17:34 Poikilocytosis Not Reportable 08/23/17 17:34 Anisocytosis 1+ 08/23/17 17:34 Microcytosis Not Reportable 08/23/17 17:34 Macrocytosis Not Reportable 08/23/17 17:34 Spherocytes Not Reportable 08/23/17 17:34 Pappenheimer Bodies Not Reportable 08/23/17 17:34 Sickle Cells Not Reportable 08/23/17 17:34 Target Cells 1+ 08/23/17 17:34 Tear Drop Cells Not Reportable 08/23/17 17:34 Ovalocytes 1+ 08/23/17 17:34 Helmet Cells Not Reportable 08/23/17 17:34 [place] Bodies Not Reportable 08/23/17 17:34 [place] Rings Not Reportable 08/23/17 17:34 [place] Cells Not Reportable 08/23/17 17:34 Bite Cells Not Reportable 08/23/17 17:34 Crenated Cell Not Reportable 08/23/17 17:34 Elliptocytes Not Reportable 08/23/17 17:34 Acanthocytes (Spur) Not Reportable 08/23/17 17:34 Rouleaux Not Reportable 08/23/17 17:34 Hemoglobin C Crystals Not Reportable 08/23/17 17:34 Schistocytes Not Reportable 08/23/17 17:34 Malaria parasites Not Reportable 08/23/17 17:34 [place] Bodies Not Reportable 08/23/17 17:34 Hem Pathologist Commnt No 08/23/17 17:34 PT 17.8 Sec. (12.2-14.9) H 08/21/17 03:32 INR 1.38 (0.87-1.13) H 08/21/17 03:32 VBG pH 7.480 (7.320-7.420) H 08/21/17 03:17 Sodium 142 mmol/L (137-145) 08/31/17 04:50 Potassium 3.7 mmol/L (3.6-5.0) D 08/31/17 04:50 Chloride 96.9 mmol/L (98-107) L 08/31/17 04:50 Carbon Dioxide 39 mmol/L (22-30) H 08/31/17 04:50 Anion Gap 10 mmol/L 08/31/17 04:50 BUN 8 mg/dL (7-17) 08/31/17 04:50 Creatinine < 0.2 mg/dL (0.7-1.2) L 08/31/17 04:50 Estimated GFR > 60 ml/min 08/31/17 04:50 BUN/Creatinine Ratio 40 % 08/31/17 04:50 Glucose 164 mg/dL (65-100) H 08/31/17 04:50 POC Glucose 144 (70-105) H 09/01/17 13:22 Hemoglobin A1c 5.8 % (4-6) 08/21/17 03:17 Lactic Acid 0.70 mmol/L (0.7-2.0) 08/22/17 00:22 Calcium 7.5 mg/dL (8.4-10.2) L 08/31/17 04:50 Phosphorus 2.60 mg/dL (2.5-4.5) 08/31/17 04:50 Magnesium 1.90 mg/dL (1.7-2.3) 08/31/17 04:50 Iron 11 ug/dL (37-170) L 08/22/17 14:30 Total Bilirubin 0.40 mg/dL (0.1-1.2) 08/21/17 03:17 AST 9 units/L (5-40) 08/21/17 03:17 ALT 5 units/L (7-56) L 08/21/17 03:17 Alkaline Phosphatase 90 units/L (35-129) 08/21/17 03:17 NT-Pro-B Natriuret Pep 165.7 pg/mL (0-900) 08/21/17 03:17 Total Protein 5.2 g/dL (6.3-8.2) L 08/21/17 03:17 Albumin 2.3 g/dL (3.9-5) L 08/21/17 03:17 Albumin/Globulin Ratio 0.8 % 08/21/17 03:17 Vitamin B12 1647 pg/mL (211-911) H 08/22/17 14:30 Folate 7.04 ng/mL (7.3-26.0) L 08/22/17 14:30 TSH 1.910 mlU/mL (0.270-4.200) 08/24/17 13:41 Urine Color [place] (Yellow) 08/21/17 06:54 Urine Turbidity Clear (Clear) 08/21/17 06:54 Urine pH 5.0 (5.0-7.0) 08/21/17 06:54 Ur Specific [place] 1.021 (1.003-1.030) 08/21/17 06:54 Urine Protein 100 mg/dl mg/dL (Negative) 08/21/17 06:54 Urine Glucose (UA) Neg mg/dL (Negative) 08/21/17 06:54 Urine Ketones Neg mg/dL (Negative) 08/21/17 06:54 Urine Blood Neg (Negative) 08/21/17 06:54 Urine Nitrite Neg (Negative) 08/21/17 06:54 Urine Bilirubin Neg (Negative) 08/21/17 06:54 Urine Urobilinogen 4.0 mg/dL (<2.0) 08/21/17 06:54 Ur Leukocyte Esterase Neg (Negative) 08/21/17 06:54 Urine WBC (Auto) 9.0 /HPF (0.0-6.0) H 08/21/17 06:54 Urine RBC (Auto) 4.0 /HPF (0.0-6.0) 08/21/17 06:54 U Epithel Cells (Auto) 11.0 /HPF (0-13.0) 08/21/17 06:54 Urine Bacteria (Auto) 4+ /HPF (Negative) 08/21/17 06:54 Urine WBC Clumps 2+ /HPF 08/21/17 06:54 Urine Mucus 3+ /HPF 08/21/17 06:54 Blood Type B POSITIVE 08/24/17 10:43 Antibody Screen Negative 08/24/17 10:43 Crossmatch See Detail 08/24/17 10:43
[2017-09-01] MEDS: RisperDAL FEEDTUBE SCH (22:23)
[2017-09-01] MEDS: DepaKENE Liq FEEDTUBE SCH (22:24)
[2017-09-01] MEDS: DESYREL PO SCH ×2 (22:40→23:05)
[2017-09-02] MEDS: CLEOCIN FEEDTUBE SCH ×5 (00:15→23:35)
[2017-09-02] MEDS: ARICEPT FEEDTUBE SCH (09:39)
[2017-09-02] MEDS: ZESTRIL FEEDTUBE SCH (09:39)
[2017-09-02] MEDS: SODIUM CHLORIDE FLUSH SYRINGE 10 ML IV SCH ×2 (09:40→23:42)
[2017-09-02] MEDS: HEPARIN SUB-Q SCH ×2 (09:40→23:35)
[2017-09-02] MEDS: SANTYL TP SCH (09:41)
--- NOTE | 2017-09-02 18:04 | Progress Note ---
Assessment and Plan Assessment and plan: --Sacral decubitus ulcers; stage III Status post debridement,Wound care, wound VAC,supportive care --Bilateral heel decubiti; stage III -IV Status post debridement, continue antibiotics wound and supportive care, --Anemia; received 1 unit PRBC Closely monitor H&H and transfuse additional as needed, --Severe protein calorie malnutrition; Poor oral intake,due to dysphagia Nutrition supplements and supportive care --Dysphagia; s/p PEG placement,continue tube feeding --Metabolic encephalopathy; multifactorial, supportive care --Sepsis; secondary to UTI present on admission Receive full course of antibiotics --Sepsis secondary to multiple decubitus ulcers [different stages]; present on admission Status post debridement, Continue antibiotic and wound care --Leukocytosis; secondary to sepsis, closely monitor --Hypertension; moderate control, continue current antihypertensives and when necessary medications --DVT prophylaxis; Lovenox --DNR status --DC planning; DC back to SNF when medically stable Plan of care discussed with the daughter and her nurse Cleared by surgeon Dr. Mcarthur for discharge and follow-up at wound clinic weekly Plans bilateral AKA in 1 month Patient was initially discharged last week, however patient's daughter.appealed the discharge Medically stable for discharge to SNF, DC planning per case management /awaiting wound VAC History Interval history: Patient Seen and examined medical records reviewed Clinically stable Awaiting transfer to senior living Vital signs reviewed Hospitalist Physical - Constitutional Vitals: Temp Pulse Resp BP Pulse Ox 97.9 F 83 20 170/76 99 09/02/17 13:20 09/02/17 13:20 09/02/17 13:20 09/02/17 13:20 09/02/17 13:20 General appearance: Present: no acute distress, cachectic, disheveled - EENT Eyes: Present: PERRL, EOM intact - Neck Neck: Present: supple, normal ROM - Respiratory Respiratory effort: normal Respiratory: bilateral: diminished, negative: rales, rhonchi, wheezing - Cardiovascular Rhythm: regular Heart Sounds: Present: S1 & S2 - Extremities Extremities: abnormal (bilateral heel debridement/dressing in place) Extremity abnormal: edema - Abdominal General gastrointestinal: soft, non-tender, non-distended, normal bowel sounds, other (PEG tube in place) - Integumentary Integumentary: Present: clear, warm - Psychiatric Psychiatric: appropriate mood/affect, cooperative - Neurologic Neurologic: moves all extremities - Additional findings Additional findings: Sacral decubitus ulcer stage 3-4 Wound VAC and dressing in place Results - Labs CBC & Chem 7: 08/29/17 05:35 08/31/17 04:50 Labs: Laboratory Last Values WBC 13.7 K/mm3 (4.5-11.0) H 08/29/17 05:35 RBC 3.10 M/mm3 (3.65-5.03) L 08/29/17 05:35 Hgb 7.9 gm/dl (10.1-14.3) L 08/29/17 05:35 Hct 24.5 % (30.3-42.9) L 08/29/17 05:35 MCV 79 fl (79-97) 08/29/17 05:35 MCH 25 pg (28-32) L 08/29/17 05:35 MCHC 32 % (30-34) 08/29/17 05:35 RDW 16.2 % (13.2-15.2) H 08/29/17 05:35 Plt Count 464 K/mm3 (140-440) H 08/29/17 05:35 Lymph % (Auto) 9.8 % (13.4-35.0) L 08/29/17 05:35 [place] % (Auto) 6.5 % (0.0-7.3) 08/29/17 05:35 Eos % (Auto) 1.1 % (0.0-4.3) 08/29/17 05:35 Baso % (Auto) 0.3 % (0.0-1.8) 08/29/17 05:35 Lymph # 1.3 K/mm3 (1.2-5.4) 08/29/17 05:35 [place] # 0.9 K/mm3 (0.0-0.8) H 08/29/17 05:35 Eos # 0.1 K/mm3 (0.0-0.4) 08/29/17 05:35 Baso # 0.0 K/mm3 (0.0-0.1) 08/29/17 05:35 Add Manual Diff Complete 08/23/17 17:34 Total Counted 100 08/23/17 17:34 Seg Neutrophils % 82.3 % (40.0-70.0) H 08/29/17 05:35 Seg Neuts % (Manual) 92.0 % (40.0-70.0) H 08/23/17 17:34 Band Neutrophils % 3.0 % 08/23/17 17:34 Lymphocytes % (Manual) 4.0 % (13.4-35.0) L 08/23/17 17:34 Reactive Lymphs % (Man) 0 % 08/23/17 17:34 Monocytes % (Manual) 1.0 % (0.0-7.3) 08/23/17 17:34 Eosinophils % (Manual) 0 % (0.0-4.3) 08/23/17 17:34 Basophils % (Manual) 0 % (0.0-1.8) 08/23/17 17:34 Metamyelocytes % 0 % 08/23/17 17:34 Myelocytes % 0 % 08/23/17 17:34 Promyelocytes % 0 % 08/23/17 17:34 Blast Cells % 0 % 08/23/17 17:34 Nucleated RBC % Not Reportable 08/23/17 17:34 Seg Neutrophils # 11.3 K/mm3 (1.8-7.7) H 08/29/17 05:35 Seg Neutrophils # Man 16.3 K/mm3 (1.8-7.7) H 08/23/17 17:34 Band Neutrophils # 0.5 K/mm3 08/23/17 17:34 Lymphocytes # (Manual) 0.7 K/mm3 (1.2-5.4) L 08/23/17 17:34 Abs React Lymphs (Man) 0.0 K/mm3 08/23/17 17:34 Monocytes # (Manual) 0.2 K/mm3 (0.0-0.8) 08/23/17 17:34 Eosinophils # (Manual) 0.0 K/mm3 (0.0-0.4) 08/23/17 17:34 Basophils # (Manual) 0.0 K/mm3 (0.0-0.1) 08/23/17 17:34 Metamyelocytes # 0.0 K/mm3 08/23/17 17:34 Myelocytes # 0.0 K/mm3 08/23/17 17:34 Promyelocytes # 0.0 K/mm3 08/23/17 17:34 Blast Cells # 0.0 K/mm3 08/23/17 17:34 WBC Morphology Not Reportable 08/23/17 17:34 Hypersegmented Neuts Not Reportable 08/23/17 17:34 Hyposegmented Neuts Not Reportable 08/23/17 17:34 Hypogranular Neuts Not Reportable 08/23/17 17:34 Smudge Cells Not Reportable 08/23/17 17:34 Toxic Granulation Not Reportable 08/23/17 17:34 Toxic Vacuolation Not Reportable 08/23/17 17:34 Dohle Bodies Not Reportable 08/23/17 17:34 [place] Anomaly Not Reportable 08/23/17 17:34 Abdulkadir Rods Not Reportable 08/23/17 17:34 Platelet Estimate Appears increased 08/23/17 17:34 Clumped Platelets Not Reportable 08/23/17 17:34 Plt Clumps, EDTA Not Reportable 08/23/17 17:34 Large Platelets Not Reportable 08/23/17 17:34 Giant Platelets Not Reportable 08/23/17 17:34 Platelet Satelliting Not Reportable 08/23/17 17:34 Plt Morphology Comment Not Reportable 08/23/17 17:34 RBC Morphology Not Reportable 08/23/17 17:34 Dimorphic RBCs Not Reportable 08/23/17 17:34 Polychromasia Not Reportable 08/23/17 17:34 Hypochromasia 2+ 08/23/17 17:34 Poikilocytosis Not Reportable 08/23/17 17:34 Anisocytosis 1+ 08/23/17 17:34 Microcytosis Not Reportable 08/23/17 17:34 Macrocytosis Not Reportable 08/23/17 17:34 Spherocytes Not Reportable 08/23/17 17:34 Pappenheimer Bodies Not Reportable 08/23/17 17:34 Sickle Cells Not Reportable 08/23/17 17:34 Target Cells 1+ 08/23/17 17:34 Tear Drop Cells Not Reportable 08/23/17 17:34 Ovalocytes 1+ 08/23/17 17:34 Helmet Cells Not Reportable 08/23/17 17:34 [place] Bodies Not Reportable 08/23/17 17:34 [place] Rings Not Reportable 08/23/17 17:34 [place] Cells Not Reportable 08/23/17 17:34 Bite Cells Not Reportable 08/23/17 17:34 Crenated Cell Not Reportable 08/23/17 17:34 Elliptocytes Not Reportable 08/23/17 17:34 Acanthocytes (Spur) Not Reportable 08/23/17 17:34 Rouleaux Not Reportable 08/23/17 17:34 Hemoglobin C Crystals Not Reportable 08/23/17 17:34 Schistocytes Not Reportable 08/23/17 17:34 Malaria parasites Not Reportable 08/23/17 17:34 [place] Bodies Not Reportable 08/23/17 17:34 Hem Pathologist Commnt No 08/23/17 17:34 PT 17.8 Sec. (12.2-14.9) H 08/21/17 03:32 INR 1.38 (0.87-1.13) H 08/21/17 03:32 VBG pH 7.480 (7.320-7.420) H 08/21/17 03:17 Sodium 142 mmol/L (137-145) 08/31/17 04:50 Potassium 3.7 mmol/L (3.6-5.0) D 08/31/17 04:50 Chloride 96.9 mmol/L (98-107) L 08/31/17 04:50 Carbon Dioxide 39 mmol/L (22-30) H 08/31/17 04:50 Anion Gap 10 mmol/L 08/31/17 04:50 BUN 8 mg/dL (7-17) 08/31/17 04:50 Creatinine < 0.2 mg/dL (0.7-1.2) L 08/31/17 04:50 Estimated GFR > 60 ml/min 08/31/17 04:50 BUN/Creatinine Ratio 40 % 08/31/17 04:50 Glucose 164 mg/dL (65-100) H 08/31/17 04:50 POC Glucose 142 (70-105) H 09/02/17 11:37 Hemoglobin A1c 5.8 % (4-6) 08/21/17 03:17 Lactic Acid 0.70 mmol/L (0.7-2.0) 08/22/17 00:22 Calcium 7.5 mg/dL (8.4-10.2) L 08/31/17 04:50 Phosphorus 2.60 mg/dL (2.5-4.5) 08/31/17 04:50 Magnesium 1.90 mg/dL (1.7-2.3) 08/31/17 04:50 Iron 11 ug/dL (37-170) L 08/22/17 14:30 Total Bilirubin 0.40 mg/dL (0.1-1.2) 08/21/17 03:17 AST 9 units/L (5-40) 08/21/17 03:17 ALT 5 units/L (7-56) L 08/21/17 03:17 Alkaline Phosphatase 90 units/L (35-129) 08/21/17 03:17 NT-Pro-B Natriuret Pep 165.7 pg/mL (0-900) 08/21/17 03:17 Total Protein 5.2 g/dL (6.3-8.2) L 08/21/17 03:17 Albumin 2.3 g/dL (3.9-5) L 08/21/17 03:17 Albumin/Globulin Ratio 0.8 % 08/21/17 03:17 Vitamin B12 1647 pg/mL (211-911) H 08/22/17 14:30 Folate 7.04 ng/mL (7.3-26.0) L 08/22/17 14:30 TSH 1.910 mlU/mL (0.270-4.200) 08/24/17 13:41 Urine Color [place] (Yellow) 08/21/17 06:54 Urine Turbidity Clear (Clear) 08/21/17 06:54 Urine pH 5.0 (5.0-7.0) 08/21/17 06:54 Ur Specific [place] 1.021 (1.003-1.030) 08/21/17 06:54 Urine Protein 100 mg/dl mg/dL (Negative) 08/21/17 06:54 Urine Glucose (UA) Neg mg/dL (Negative) 08/21/17 06:54 Urine Ketones Neg mg/dL (Negative) 08/21/17 06:54 Urine Blood Neg (Negative) 08/21/17 06:54 Urine Nitrite Neg (Negative) 08/21/17 06:54 Urine Bilirubin Neg (Negative) 08/21/17 06:54 Urine Urobilinogen 4.0 mg/dL (<2.0) 08/21/17 06:54 Ur Leukocyte Esterase Neg (Negative) 08/21/17 06:54 Urine WBC (Auto) 9.0 /HPF (0.0-6.0) H 08/21/17 06:54 Urine RBC (Auto) 4.0 /HPF (0.0-6.0) 08/21/17 06:54 U Epithel Cells (Auto) 11.0 /HPF (0-13.0) 08/21/17 06:54 Urine Bacteria (Auto) 4+ /HPF (Negative) 08/21/17 06:54 Urine WBC Clumps 2+ /HPF 08/21/17 06:54 Urine Mucus 3+ /HPF 08/21/17 06:54 Blood Type B POSITIVE 08/24/17 10:43 Antibody Screen Negative 08/24/17 10:43 Crossmatch See Detail 08/24/17 10:43
[2017-09-02] MEDS: RisperDAL FEEDTUBE SCH (23:34)
[2017-09-02] MEDS: DepaKENE Liq FEEDTUBE SCH (23:35)
[2017-09-02] MEDS: DESYREL PO SCH (23:43)
[2017-09-03] MEDS: CLEOCIN FEEDTUBE SCH ×3 (05:59→17:27)
[2017-09-03 06:04] LABS: Basophils % (Auto) 0.2 % (0.0-1.8); Eosinophils # (Auto) 0.1 K/mm3 (0.0-0.4); Eosinophils % (Auto) 0.5 % (0.0-4.3); Hematocrit 26.3 % (30.3-42.9); Hemoglobin 8.7 gm/dl (10.1-14.3); Lymphocytes # (Auto) 1.3 K/mm3 (1.2-5.4); Lymphocytes % (Auto) 9.3 % (13.4-35.0); Mean Corpuscular HGB Conc 33 % (30-34); Mean Corpuscular Hemoglobin 26 pg (28-32); Mean Corpuscular Volume 80 fl (79-97); Monocytes # (Auto) 0.9 K/mm3 (0.0-0.8); Monocytes % (Auto) 6.2 % (0.0-7.3); Platelet Count 344 K/mm3 (140-440); Red Blood Count 3.31 M/mm3 (3.65-5.03); Red Cell Distribution Width 19.6 % (13.2-15.2)
[2017-09-03 06:28] LABS: BUN/Creatinine Ratio 55; Blood Urea Nitrogen 11 mg/dL (7-17); Calcium 7.9 mg/dL (8.4-10.2); Hemolysis Index 9
[2017-09-03] MEDS: ZESTRIL FEEDTUBE SCH (09:07)
[2017-09-03] MEDS: HEPARIN SUB-Q SCH (09:08)
[2017-09-03] MEDS: SODIUM CHLORIDE FLUSH SYRINGE 10 ML IV SCH (09:08)
[2017-09-03] MEDS: ARICEPT FEEDTUBE SCH (09:08)
[2017-09-03] MEDS: SANTYL TP SCH (09:10)
--- NOTE | 2017-09-03 17:27 | Progress Note ---
Hospitalist Physical - Constitutional Vitals: Temp Pulse Resp BP Pulse Ox 98.9 F 90 20 151/80 97 09/03/17 13:13 09/03/17 13:13 09/03/17 13:13 09/03/17 13:13 09/03/17 15:28 General appearance: Present: no acute distress, cachectic, disheveled Results - Labs CBC & Chem 7: 09/03/17 05:20 09/03/17 05:20 Labs: Laboratory Last Values WBC 14.5 K/mm3 (4.5-11.0) H 09/03/17 05:20 RBC 3.31 M/mm3 (3.65-5.03) L 09/03/17 05:20 Hgb 8.7 gm/dl (10.1-14.3) L 09/03/17 05:20 Hct 26.3 % (30.3-42.9) L 09/03/17 05:20 MCV 80 fl (79-97) 09/03/17 05:20 MCH 26 pg (28-32) L 09/03/17 05:20 MCHC 33 % (30-34) 09/03/17 05:20 RDW 19.6 % (13.2-15.2) H 09/03/17 05:20 Plt Count 344 K/mm3 (140-440) 09/03/17 05:20 Lymph % (Auto) 9.3 % (13.4-35.0) L 09/03/17 05:20 [place] % (Auto) 6.2 % (0.0-7.3) 09/03/17 05:20 Eos % (Auto) 0.5 % (0.0-4.3) 09/03/17 05:20 Baso % (Auto) 0.2 % (0.0-1.8) 09/03/17 05:20 Lymph # 1.3 K/mm3 (1.2-5.4) 09/03/17 05:20 [place] # 0.9 K/mm3 (0.0-0.8) H 09/03/17 05:20 Eos # 0.1 K/mm3 (0.0-0.4) 09/03/17 05:20 Baso # 0.0 K/mm3 (0.0-0.1) 09/03/17 05:20 Add Manual Diff Complete 08/23/17 17:34 Total Counted 100 08/23/17 17:34 Seg Neutrophils % 83.8 % (40.0-70.0) H 09/03/17 05:20 Seg Neuts % (Manual) 92.0 % (40.0-70.0) H 08/23/17 17:34 Band Neutrophils % 3.0 % 08/23/17 17:34 Lymphocytes % (Manual) 4.0 % (13.4-35.0) L 08/23/17 17:34 Reactive Lymphs % (Man) 0 % 08/23/17 17:34 Monocytes % (Manual) 1.0 % (0.0-7.3) 08/23/17 17:34 Eosinophils % (Manual) 0 % (0.0-4.3) 08/23/17 17:34 Basophils % (Manual) 0 % (0.0-1.8) 08/23/17 17:34 Metamyelocytes % 0 % 08/23/17 17:34 Myelocytes % 0 % 08/23/17 17:34 Promyelocytes % 0 % 08/23/17 17:34 Blast Cells % 0 % 08/23/17 17:34 Nucleated RBC % Not Reportable 08/23/17 17:34 Seg Neutrophils # 12.1 K/mm3 (1.8-7.7) H 09/03/17 05:20 Seg Neutrophils # Man 16.3 K/mm3 (1.8-7.7) H 08/23/17 17:34 Band Neutrophils # 0.5 K/mm3 08/23/17 17:34 Lymphocytes # (Manual) 0.7 K/mm3 (1.2-5.4) L 08/23/17 17:34 Abs React Lymphs (Man) 0.0 K/mm3 08/23/17 17:34 Monocytes # (Manual) 0.2 K/mm3 (0.0-0.8) 08/23/17 17:34 Eosinophils # (Manual) 0.0 K/mm3 (0.0-0.4) 08/23/17 17:34 Basophils # (Manual) 0.0 K/mm3 (0.0-0.1) 08/23/17 17:34 Metamyelocytes # 0.0 K/mm3 08/23/17 17:34 Myelocytes # 0.0 K/mm3 08/23/17 17:34 Promyelocytes # 0.0 K/mm3 08/23/17 17:34 Blast Cells # 0.0 K/mm3 08/23/17 17:34 WBC Morphology Not Reportable 08/23/17 17:34 Hypersegmented Neuts Not Reportable 08/23/17 17:34 Hyposegmented Neuts Not Reportable 08/23/17 17:34 Hypogranular Neuts Not Reportable 08/23/17 17:34 Smudge Cells Not Reportable 08/23/17 17:34 Toxic Granulation Not Reportable 08/23/17 17:34 Toxic Vacuolation Not Reportable 08/23/17 17:34 Dohle Bodies Not Reportable 08/23/17 17:34 Pelger-Huet Anomaly Not Reportable 08/23/17 17:34 Abdulkadir Rods Not Reportable 08/23/17 17:34 Platelet Estimate Appears increased 08/23/17 17:34 Clumped Platelets Not Reportable 08/23/17 17:34 Plt Clumps, EDTA Not Reportable 08/23/17 17:34 Large Platelets Not Reportable 08/23/17 17:34 Giant Platelets Not Reportable 08/23/17 17:34 Platelet Satelliting Not Reportable 08/23/17 17:34 Plt Morphology Comment Not Reportable 08/23/17 17:34 RBC Morphology Not Reportable 08/23/17 17:34 Dimorphic RBCs Not Reportable 08/23/17 17:34 Polychromasia Not Reportable 08/23/17 17:34 Hypochromasia 2+ 08/23/17 17:34 Poikilocytosis Not Reportable 08/23/17 17:34 Anisocytosis 1+ 08/23/17 17:34 Microcytosis Not Reportable 08/23/17 17:34 Macrocytosis Not Reportable 08/23/17 17:34 Spherocytes Not Reportable 08/23/17 17:34 Pappenheimer Bodies Not Reportable 08/23/17 17:34 Sickle Cells Not Reportable 08/23/17 17:34 Target Cells 1+ 08/23/17 17:34 Tear Drop Cells Not Reportable 08/23/17 17:34 Ovalocytes 1+ 08/23/17 17:34 Helmet Cells Not Reportable 08/23/17 17:34 Ordonez-Graham Bodies Not Reportable 08/23/17 17:34 [place] Rings Not Reportable 08/23/17 17:34 [place] Cells Not Reportable 08/23/17 17:34 Bite Cells Not Reportable 08/23/17 17:34 Crenated Cell Not Reportable 08/23/17 17:34 Elliptocytes Not Reportable 08/23/17 17:34 Acanthocytes (Spur) Not Reportable 08/23/17 17:34 Rouleaux Not Reportable 08/23/17 17:34 Hemoglobin C Crystals Not Reportable 08/23/17 17:34 Schistocytes Not Reportable 08/23/17 17:34 Malaria parasites Not Reportable 08/23/17 17:34 [place] Bodies Not Reportable 08/23/17 17:34 Hem Pathologist Commnt No 08/23/17 17:34 PT 17.8 Sec. (12.2-14.9) H 08/21/17 03:32 INR 1.38 (0.87-1.13) H 08/21/17 03:32 VBG pH 7.480 (7.320-7.420) H 08/21/17 03:17 Sodium 137 mmol/L (137-145) 09/03/17 05:20 Potassium 4.3 mmol/L (3.6-5.0) 09/03/17 05:20 Chloride 97.0 mmol/L (98-107) L 09/03/17 05:20 Carbon Dioxide 33 mmol/L (22-30) H 09/03/17 05:20 Anion Gap 11 mmol/L 09/03/17 05:20 BUN 11 mg/dL (7-17) 09/03/17 05:20 Creatinine 0.2 mg/dL (0.7-1.2) L 09/03/17 05:20 Estimated GFR > 60 ml/min 09/03/17 05:20 BUN/Creatinine Ratio 55 % 09/03/17 05:20 Glucose 137 mg/dL (65-100) H 09/03/17 05:20 POC Glucose 130 (70-105) H 09/03/17 11:41 Hemoglobin A1c 5.8 % (4-6) 08/21/17 03:17 Lactic Acid 0.70 mmol/L (0.7-2.0) 08/22/17 00:22 Calcium 7.9 mg/dL (8.4-10.2) L 09/03/17 05:20 Phosphorus 2.60 mg/dL (2.5-4.5) 08/31/17 04:50 Magnesium 1.90 mg/dL (1.7-2.3) 08/31/17 04:50 Iron 11 ug/dL (37-170) L 08/22/17 14:30 Total Bilirubin 0.40 mg/dL (0.1-1.2) 08/21/17 03:17 AST 9 units/L (5-40) 08/21/17 03:17 ALT 5 units/L (7-56) L 08/21/17 03:17 Alkaline Phosphatase 90 units/L (35-129) 08/21/17 03:17 NT-Pro-B Natriuret Pep 165.7 pg/mL (0-900) 08/21/17 03:17 Total Protein 5.2 g/dL (6.3-8.2) L 08/21/17 03:17 Albumin 2.3 g/dL (3.9-5) L 08/21/17 03:17 Albumin/Globulin Ratio 0.8 % 08/21/17 03:17 Vitamin B12 1647 pg/mL (211-911) H 08/22/17 14:30 Folate 7.04 ng/mL (7.3-26.0) L 08/22/17 14:30 TSH 1.910 mlU/mL (0.270-4.200) 08/24/17 13:41 Urine Color Beth (Yellow) 08/21/17 06:54 Urine Turbidity Clear (Clear) 08/21/17 06:54 Urine pH 5.0 (5.0-7.0) 08/21/17 06:54 Ur Specific [place] 1.021 (1.003-1.030) 08/21/17 06:54 Urine Protein 100 mg/dl mg/dL (Negative) 08/21/17 06:54 Urine Glucose (UA) Neg mg/dL (Negative) 08/21/17 06:54 Urine Ketones Neg mg/dL (Negative) 08/21/17 06:54 Urine Blood Neg (Negative) 08/21/17 06:54 Urine Nitrite Neg (Negative) 08/21/17 06:54 Urine Bilirubin Neg (Negative) 08/21/17 06:54 Urine Urobilinogen 4.0 mg/dL (<2.0) 08/21/17 06:54 Ur Leukocyte Esterase Neg (Negative) 08/21/17 06:54 Urine WBC (Auto) 9.0 /HPF (0.0-6.0) H 08/21/17 06:54 Urine RBC (Auto) 4.0 /HPF (0.0-6.0) 08/21/17 06:54 U Epithel Cells (Auto) 11.0 /HPF (0-13.0) 08/21/17 06:54 Urine Bacteria (Auto) 4+ /HPF (Negative) 08/21/17 06:54 Urine WBC Clumps 2+ /HPF 08/21/17 06:54 Urine Mucus 3+ /HPF 08/21/17 06:54 Blood Type B POSITIVE 08/24/17 10:43 Antibody Screen Negative 08/24/17 10:43 Crossmatch See Detail 08/24/17 10:43
--- NOTE | 2017-09-03 17:33 | Discharge Summary ---
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 08/21/17 09:55 Consult to Wound/ET Nurse [CONS] Routine Reason For Exam: wound eval 08/21/17 09:57 Consult to Dietitian/Nutrition [CONS] Routine Physician Instructions: Assess nutrtn needs, initiate, modify, manage TF Reason For Exam: Reason for Consult: Write/Manage Tube Feeding Reason for Consult: Write/Manage Tube Feeding 08/21/17 13:09 Occupational Therapy Evaluate and Treat [CONS] Routine Comment: Reason For Exam: Pt needs help with ADLs Physical Therapy Evaluation and Treat [CONS] Routine Comment: Reason For Exam: Pt is immobile Speech Therapy Evaluation and Treat [CONS] Routine Reason For Exam: Pt has difficulty swalloing 08/21/17 16:36 Consult to Physician [CONS] Routine Comment: Consulting Provider: STEWART MCARTHUR Physician Instructions: PATIENT SEEN TODAY Reason For Exam: NECROTIC PRESSURE ULCERS 08/24/17 10:04 Consult to Dietitian/Nutrition [CONS] Stat Physician Instructions: Reason For Exam: PEG TUBE NEED TUBE FEEDING Reason for Consult: Write/Manage Tube Feeding Primary care physician: SET OFF PRESS OPERATOR Hospitalization Condition: Stable Procedures: Dysphagia: s/p PEG tube placement Stage III to 4 sacral decubitus ulcer;s/p surgical debridement Stage 3-4 bilateral heel decubitus ulcer; s/p surgical debridement Hospital course: --Sacral decubitus ulcers; stage III Status post debridement,Wound care, wound VAC,supportive care --Bilateral heel decubiti; stage III -IV Status post debridement, continue antibiotics wound and supportive care, --Anemia; received 1 unit PRBC Closely monitor H&H and transfuse additional as needed, --Severe protein calorie malnutrition; Poor oral intake,due to dysphagia Nutrition supplements and supportive care --Dysphagia; s/p PEG placement,continue tube feeding --Metabolic encephalopathy; multifactorial, supportive care --Sepsis; secondary to UTI present on admission Receive full course of antibiotics --Sepsis secondary to multiple decubitus ulcers [different stages]; present on admission Status post debridement, Continue antibiotic and wound care --Leukocytosis; secondary to sepsis, closely monitor --Hypertension; moderate control, continue current antihypertensives and when necessary medications Disposition: [place] Time spent for discharge: 33 min Core Measure Documentation - Palliative Care Palliative Care/ Comfort Measures: Not Applicable - Core Measures Any of the following diagnoses?: none Exam - Constitutional Vitals: Temp Pulse Resp BP Pulse Ox 98.9 F 90 20 151/80 97 09/03/17 13:13 09/03/17 13:13 09/03/17 13:13 09/03/17 13:13 09/03/17 15:28 General appearance: Present: no acute distress, well-nourished - EENT Eyes: Present: PERRL, EOM intact - Neck Neck: Present: supple, normal ROM - Respiratory Respiratory effort: normal Respiratory: bilateral: diminished, negative: rales, rhonchi, wheezing - Cardiovascular Rhythm: regular Heart Sounds: Present: S1 & S2 - Extremities Extremities: no ischemia, No edema, abnormal (bilateral heel wounds/dressing in place) Extremity abnormal: edema - Abdominal General gastrointestinal: Present: soft, non-tender, non-distended, normal bowel sounds, other (PEG tube in place) - Integumentary Integumentary: Present: clear, warm - Musculoskeletal Musculoskeletal: generalized weakness - Psychiatric Psychiatric: cooperative, other (minimally communicative) - Neurologic Neurologic: other (minimally communicative) - Additional findings Additional findings: Sacral decubitus ulcer stage 3-4 Plan Activity: advance as tolerated Diet: other (tube feeds per protocol) Wound: per wound nurse instructions Special Instructions: physical therapy, occupational therapy Additional Instructions: Aspiration precautions. Fall precautions and wound care per protocol. Outpatient wound care follow-up weekly[Dr. [facility]] Follow up with: PRIMARY CAREMD [Primary Care Provider] - 3-5 Days STEWART MCARTHUR MD [Staff Physician] - 7 Days Prescriptions: Clindamycin [Clindamycin CAP] 300 mg FEEDTUBE Q6HR #20 capsule
[2017-09-03 20:26] VITALS: BP 156/74
== END 2017-09-03 20:40 | DRG 853 ==
LOC: ED 02:52 → 4A 09:28 → 2B-ACE 08-25 21:02
PROVIDERS: ADMIT Internal Medicine; ATTEND Internal Medicine
PROC: 4A033R1 Measurement of Arterial Saturation, Peripheral, Percutaneous Approach (ICD-10-PCS; 2017-08-21)
PROC: 0QBM0ZZ Excision of Left Tarsal, Open Approach (ICD-10-PCS; principal; 2017-08-22)
PROC: 0QBL0ZZ Excision of Right Tarsal, Open Approach (ICD-10-PCS; 2017-08-22)
PROC: 0QB10ZZ Excision of Sacrum, Open Approach (ICD-10-PCS; 2017-08-22)
PROC: 0DH63UZ Insertion of Feeding Device into Stomach, Percutaneous Approach (ICD-10-PCS; 2017-08-23)
PROC: 30233N1 Transfusion of Nonautologous Red Blood Cells into Peripheral Vein, Percutaneous Approach (ICD-10-PCS; 2017-08-24)
DX: A41.9 Sepsis, unspecified organism (principal); E43 Unspecified severe protein-calorie malnutrition; L89.154 Pressure ulcer of sacral region, stage 4; L89.624 Pressure ulcer of left heel, stage 4; L89.614 Pressure ulcer of right heel, stage 4; G93.41 Metabolic encephalopathy; J18.9 Pneumonia, unspecified organism; N39.0 Urinary tract infection, site not specified; F03.90 Unspecified dementia, unspecified severity, without behavioral disturbance, psychotic disturbance, mood disturbance, and anxiety; F20.9 Schizophrenia, unspecified; L97.429 Non-pressure chronic ulcer of left heel and midfoot with unspecified severity; Z66 Do not resuscitate; E86.0 Dehydration; I10 Essential (primary) hypertension; E87.6 Hypokalemia; D50.9 Iron deficiency anemia, unspecified; Z68.20 Body mass index [BMI] 20.0-20.9, adult; Z87.891 Personal history of nicotine dependence; Z86.73 Personal history of transient ischemic attack (TIA), and cerebral infarction without residual deficits
CPT/HCPCS: 36415; 51702; 71045; 74230; 80048; 80053; 81001; 82140; 82607; 82747; 82805; 82962; 83036; 83540; 83735; 83880; 84100; 84443; 85007; 85025; 85610; 86850; 86900; 86901; 86920; 87040; 87075; 87086; 87116; 93005; 93010; 93925; 94760; 96365; 96366; 96367; 96368; 96375; G8978-GP; G8979-GP; G8980-GP; G8987-GO; G8988-GO; G8989-GO; G8996-GN; G8997-GN; G8998-GN; J0690; J1644; J1940; J1956; J2270; J2370; J2405; J2543; J2704; J3010; J3370; J3480; J7030; J7040; J7050; P9016

== ENCOUNTER 2017-09-10 08:02 | Outpatient (CLI) | payer MEDICARE ==
[2017-09-10] MEDS ORDERED: XYLOCAINE TOPICAL 4% TP ONE ×2 (08:18→09:02)
== END 2017-09-10 08:03 | disposition home or self-care (01) ==
LOC: WOUND 08:02
PROVIDERS: ATTEND Surgery
DX: L89.614 Pressure ulcer of right heel, stage 4 (principal); F03.90 Unspecified dementia, unspecified severity, without behavioral disturbance, psychotic disturbance, mood disturbance, and anxiety; F20.9 Schizophrenia, unspecified; Z86.73 Personal history of transient ischemic attack (TIA), and cerebral infarction without residual deficits
CPT/HCPCS: 11042; 11045; 97606; G0463

== ENCOUNTER 2017-10-01 08:46 | Outpatient (CLI) | payer MEDICARE ==
[~2017-10-01 08:46] MED LIST: NACL 0.9% 1000 ML 1,000 ML ONE; XYLOCAINE MPF 2% ONE
[2017-10-01] MEDS ORDERED: XYLOCAINE TOPICAL 4% TP ONE ×2 (10:20→10:36)
[2017-10-01] MEDS ORDERED: DAKIN'S FULL STRENGTH ONE (12:02)
== END 2017-10-01 08:47 | disposition home or self-care (01) ==
LOC: WOUND 08:46
PROVIDERS: ATTEND Surgery
DX: I70.238 Atherosclerosis of native arteries of right leg with ulceration of other part of lower leg (principal); L97.811 Non-pressure chronic ulcer of other part of right lower leg limited to breakdown of skin; I70.248 Atherosclerosis of native arteries of left leg with ulceration of other part of lower leg; L97.821 Non-pressure chronic ulcer of other part of left lower leg limited to breakdown of skin; L89.513 Pressure ulcer of right ankle, stage 3; L89.614 Pressure ulcer of right heel, stage 4; L89.893 Pressure ulcer of other site, stage 3; F03.90 Unspecified dementia, unspecified severity, without behavioral disturbance, psychotic disturbance, mood disturbance, and anxiety; F20.9 Schizophrenia, unspecified; Z86.73 Personal history of transient ischemic attack (TIA), and cerebral infarction without residual deficits
CPT/HCPCS: 11042; 11045; 97606; J7030